=== PATIENT | male | born 1965 | race Caucasian/White ===

== ENCOUNTER → 2019-05-02 09:42 | Outpatient (CLI) | payer BC, SELFPAY ==
--- NOTE | 2019-05-02 09:47 | FL_ITS ---
Modified barium swallow Please refer to the speech and language evaluation. Patient experience premature loss of the thin liquids over the back of the tongue as well as with mixed consistencies and difficulty moving a large pill to the back of the tongue. Patient showed mild residual and was able to clear the residual phone the vallecula with a thin rinse. Impression: Neurogenic type of dysphasia as described above. This is detailed in the speech and language evaluation. Dictated by: Modesto Gonsalez 05/02/2019 15:48 Electronically signed by Modesto Gonsalez in [place] 05/02/2019 15:48
--- NOTE | 2019-05-02 13:26 | HMH.SLMBS2 ---
Speech & Language Evaluation Speech/Language Mod Barium Swallow Start: 05/02/19 13:12 Freq: once Status: Complete Protocol: Document 05/02/19 13:12 REUBENJAHAIRA (Rec: 05/02/19 13:25 REUBENJOSHYANIRA [id number]) [facility] [place] Recommendations Diet Dietary Recommendations Regular,Thin Liquids Treatment/Strategies Strategy/Precaution Recommend Sitting Upright (90 deg), Liquids from Cup Mod Barium Swallow Impressions Summary and Impressions Oral Phase Impression No Impairment (WFL) Oral Phase Summary Mr. Ludwig experienced premature loss of fluid over back of tongue with mixed consistencies and decreased abiltiy to move large pill to back of tongue; This could be due to swelling in neck and decreased sensation; Rec. follow up with physician and pharmacist to see if smaller pills or if liquid options are available; We also recommend avoiding mixed consistencies of foods (cereal with milk, fruit cocktail with juice etc) Pharyngeal Phase Impression Minimal Impairment Pharyngeal Phase Summary Mild residue with mechanical soft consistency. Easily cleared with thin rinse. Speech/Language MBS Assessment/Goals/Plan Assessment Date of Evaluation: 05/02/19 Evaluation Type Initial Certification Assessment/Problems Difficulty swallowing; Does Patient Qualify for Service No Qualify/Failure Comment Patient is currently not a candidate for speech therapy for dysphagia; Compensatory stragegies were reviewed and patient education provided; Recommendations PHYSICIAN CERTIFICATION: The specified therapy services are required, authorized, and reviewed every 30 days. Diet Recommendations Normal Liquid Type Recommendations Normal/Thin SL Swallow Guidelines Standard Aspiration Prec. Crush Meds Small pills w/applesauce,Small OK/Crush large pill,Crush lge pills w/applesa,Ok for small pills,Subs. delivery (liquid?) Dysphagia Swallow Precautions/Strategies Sitting Upright (90 deg), Mendelsonn Maneuver Plan Pt/Guardian verbally ack understanding Yes of dx/prognosis/goals Pt/Guardian verbally ack understanding Yes of/consent to tx prog G
== END ==
PROVIDERS: PCP Internal Medicine Adolescent Medicine; Visit Provider Internal Medicine Adolescent Medicine
DX: R13.10 Dysphagia, unspecified (principal)
CPT/HCPCS: 70371; 92611

== ENCOUNTER → 2020-02-22 08:34 | Outpatient (CLI) | payer BC, SELFPAY ==
--- NOTE | 2020-02-22 08:44 | CT_ITS ---
PROCEDURE: CT SOFT TISSUE NECK WO/W CON CLINICAL HISTORY: difficulty swallowing feels like something is stuck on left side of throat. left neck swelling at night; marked with bb 75ml optiray 350 no prior COMPARISON: No exams were available for comparison TECHNIQUE: Oral Contrast: None IV Contrast: 75 mL Optiray 350 Axial images obtained with sagittal and coronal reformats. All CT scans at the facility use one or more dose reduction, viz: automated exposure control, ma/kV adjustment per patient size (including targeted exams where dose is matched to indication, i.e. head), or iterative reconstruction technique. FINDINGS: The adenoids are prominent with obliteration of the fossa of Rosenmuller and torus tubarius on both sides.. There is mild prominence of the palatine tonsils having a somewhat lobulated appearance at their surface. There is also mild prominence of the lingual tonsils mildly nodular in configuration. The epiglottis and glottic region have an unremarkable appearance. Minimal prominence of the interstitium in the lung apices. Calcified granuloma is present in the left upper lobe. No dominant adenopathy is evident. The parotid and submandibular glands have an unremarkable appearance. Unremarkable appearing thyroid. There are mild degenerative changes in the cervical spine at the C5-C6 level. IMPRESSION: There is mild generalized prominence of the lymphoid tissue with prominent adenoids mildly prominent palatine and lingual tonsils. Please correlate with physical exam and direct visualization regarding the clinical significance of these findings. No abscess or dominant adenopathy. Dictated by: Reagan Wilder MD 02/23/2020 15:14 Reagan Wilder MD in [place] 02/23/2020 15:14
--- NOTE | 2020-02-22 08:44 | FL_ITS ---
PROCEDURE: FL BARIUM SWALLOW CLINICAL INDICATION: dysphagia COMPARISON: No exams were available for comparison TECHNIQUE: In the upright position the patient was observed to swallow barium in both the AP and lateral view. The cervical esophagus was examined under fluoroscopy with images obtained. The patient was then placed prone in the right anterior oblique position and was observed to swallow barium with Valsalva technique . FLUOROSCOPY TIME: 1 minutes and 13 seconds FINDINGS: There were some tertiary contractions of the distal esophagus. No annular constricting lesions, polypoid filling defects, or obstructing lesions evident. No hiatal hernia. No mucosal abnormalities. IMPRESSION: Mild esophageal dysmotility otherwise negative barium swallow Dictated by: Reagan Wilder MD 02/22/2020 17:22 Reagan Wilder MD in [facility] 02/22/2020 17:22
[2020-02-22 08:56] LABS: Blood Urea Nitrogen 12 mg/dl (9-20); Estimated Glomerular Filt Rate 101 ml/min (>60); GFR (African American) 122 ML/MIN (>60)
== END ==
PROVIDERS: PCP Internal Medicine Adolescent Medicine; Visit Provider Otolaryngology
DX: R13.10 Dysphagia, unspecified (principal)
CPT/HCPCS: 36415; 70492; 74220; 82565; 84520; Q9967

== ENCOUNTER 2020-04-12 12:59 | Observation (INO) | payer BC, SELFPAY ==
--- NOTE | 2020-04-12 13:09 | P.CONPHA_ITS ---
[facility] Pharmacy VTE Monitoring - Patient Demographics Admission date: 04/12/20 Report Date: 04/12/20 Time: 13:09 Allergies/Adverse Reactions: Patient Allergies penicillin G Allergy (Severe, Verified 02/27/20 14:41) Swelling of Lip/Tongue/Throat - Prophylaxis VTE Prophylaxis Ordered?: Yes Types of VTE Prophylaxis: TEDS Knee High Location of Applied Device: Bilateral Lower Extremeties
[2020-04-12 13:10] VITALS: BP 135/82; PULSE 119; RESP 19; TEMP 37; O2SAT 93; BMI 37.6
[2020-04-12 14:01] LABS: Alanine Aminotransferase 79 U/L (12-78); Albumin Level 4.1 g/dl (3.5-5.0); Albumin/Globulin Ratio 1.2 (1.1-1.8); Alkaline Phosphatase 144 U/L (38-126); Anion Gap 9.5 mEq/L (5-15); Aspartate Amino Transferase 53 U/L (17-59); Bilirubin,Total 0.5 mg/dl (0.2-1.3); Blood Urea Nitrogen 15 mg/dl (9-20); Calcium 9.9 mg/dl (8.4-10.2); Carbon Dioxide 31 mmol/L (22.0-30.0); Chloride 96 mmol/L (98-107); Estimated Glomerular Filt Rate 101 ml/min (>60); GFR (African American) 122 ML/MIN (>60); Globulin 3.5 g/dL (1.3-3.2); Magnesium 2.2 mg/dl (1.6-2.3); Potassium 4.5 mmoL/L (3.5-5.1); Sodium 132 mmol/L (136-145); Total Protein,Serum 7.6 g/dl (6.3-8.2)
[2020-04-12 14:02] LABS: Glucose 576 mg/dl (74-100)
[2020-04-12 14:14] LABS: Lactic Acid 1.7 mmol/L (0.7-2.1)
[2020-04-12 14:20] LABS: Basophils % 0.3 % (0.1-2.0); Eosinophils # 0.1 K/mm3 (0.0-0.4); Eosinophils % 0.9 % (0.1-12.0); Hematocrit 51.2 % (42.0-52.0); Hemoglobin 16.1 g/dL (14.1-18.0); Lymphocytes # 2.5 K/mm3 (0.7-4.5); Lymphocytes % 25.6 % (10-50); Mean Corpuscular HGB Conc 31.5 g/dL (31.8-35.4); Mean Corpuscular Hemoglobin 31.5 pg (27.0-31.2); Mean Corpuscular Volume 99.9 fl (80-94); Mean Platelet Volume 9.3 fl (7.4-10.4); Monocytes # 0.5 K/mm3 (0.1-1.0); Monocytes % 5.3 % (1.7-9.3); Neutrophils # 6.7 K/mm3 (1.8-7.8); Neutrophils % 67.8 % (37.0-80.0); Platelet Count 120 K/mm3 (142-424); Red Blood Count 5.12 M/mm3 (4.60-6.20); Red Cell Distribution Width 13.6 % (11.5-17.5); White Blood Count 9.9 K/mm3 (4.8-10.8)
[2020-04-12 14:21] LABS: Coronavirus 19 IgG Antibody Negative (Negative); Coronavirus 19 IgM Antibody Negative (Negative)
--- NOTE | 2020-04-12 14:40 | HMH.PHAINT ---
Medication reconciliation completed using pharmacy claims data and patient/spouse interview.
[2020-04-12 14:46] VITALS: BMI 37.9
[2020-04-12 14:51] LABS: Hemoglobin A1C 10.7 % (4.0-6.0)
--- NOTE | 2020-04-12 15:15 | ECG_ITS ---
APPROVED REPORT Exam: Resting ECG HR:104 bpm ECG Measurements Heart Rate 104 AXES OK 162 P 55 QRSd 86 QRS -37 QT 354 T 52 QTc 465 Conclusion Sinus tachycardia with occasional premature ventricular complexes Left axis deviation Isolated Q wave in lead III, unchanged from 2009 Abnormal ECG Electronically signed by : Arron Cueva, 04/13/2020 10:18:10
[2020-04-12 16:00] VITALS: BP 155/90; PULSE 104; PULSE 119; RESP 16; RESP 19; TEMP 36.8; O2SAT 92; O2SAT 93
[2020-04-12 17:14] LABS: POC Glucose,Bedside 367 (70-110)
--- NOTE | 2020-04-12 17:29 | HMH.HP ---
*Admission Date: 04/12/20 *Chief complaint: fatigue, increased urination, thirsty *History of present illness: 54-year-old gentleman with history of hypertension, diabetes on only Metformin once a day, elevated cholesterol, and obesity who presented to clinic today due to feeling unwell for several weeks. On arrival to clinic he states he has been urinating frequently and multiple times a night. Has felt significant fatigue, nausea, poor p.o. intake for approximately 3 weeks since having a procedure performed on his left knee. Of note he had arthroscopic partial meniscectomy performed by Dr. Alvarado in [place] 3 weeks ago. Procedure was uncomplicated but had subsequent swelling and pain of his knee. Was treated conservatively with anti-inflammatories and ice and rest. No antibiotics per patient's report. Has felt poorly since his procedure. In the office, fingerstick glucose obtained with greater than 550 noted. Decision made to directly admit. After arrival to the floor, patient received 1 L bolus of LR, 10 units of short acting insulin, and labs. Noted to have severe hyperglycemia and mildly elevated inflammatory markers. No anion gap, normal kidney function. Patient sleeping when I went to assess him in his room. at bedside, states he is noncompliant with his medications. [facility] History I have reviewed the patient's past medical history: Yes Medical History: Reports:: Diabetes Mellitus Type 2, Gastroesophageal Reflux Disease(GERD), Hyperlipidemia, Hypertension Denies:: Cancer, Diabetes Mellitus Type 1, MRSA *Have you ever received a pneumonia vaccine?: No *Have you received a flu vaccine this season?: Yes Laterality Cases: Left: Arthroscopy Knee Other Surgeries: Yes: Other Amputation: No - *Social History Smoking Status: Current every day smoker Tobacco Type: cigarettes # Packs/Day (cigarettes): 1 Alcohol Intake: never Substance Use Type: denies use *Occupational Status:: employed Housing: house Household Members: spouse *Travel in the last 8 weeks: Inside the [place] Family Hx:: Coronary Artery Disease, Diabetes, Kidney Disease Review of Systems - Review of Systems Review of systems:: pertinent systems reviewed and negative unless documented below (14 point review of systems performed, pertinent positives and negatives as per HPI) Meds Home Medications Medication Instructions Recorded Confirmed Type fenofibrate 160 mg tablet 160 mg PO DAILY tab 01/19/20 04/12/20 History metformin 500 mg tablet 500 mg PO DAILY tab 01/19/20 04/12/20 History metoprolol succinate 50 mg 50 mg PO DAILY 01/19/20 04/12/20 History tablet,extended release 24 hr omeprazole 20 mg capsule,delayed 20 mg PO DAILY cap 01/19/20 04/12/20 History release pravastatin 40 mg tablet 40 mg PO HS 01/19/20 04/12/20 History losartan 50 mg tablet 50 mg PO DAILY tab 02/27/20 04/12/20 History Allergies Allergy/AdvReac Type Severity Reaction Status Date / Time penicillin G Allergy Severe Swelling Verified 02/27/20 14:41 of Lip/Tongue/Throat Exam Vital signs and Labs for Last 24 Hours: Laboratory Results - last 24 hr 04/12/20 13:44: WBC 9.9, RBC 5.12, Hgb 16.1, Hct 51.2, MCV 99.9 H, MCH 31.5 H, MCHC 31.5 L, RDW 13.6, Plt Count 120 L, MPV 9.3, Neut % (Auto) 67.8, Lymph % (Auto) 25.6, [place] % (Auto) 5.3, Eos % (Auto) 0.9, Baso % (Auto) 0.3, Neut # (Auto) 6.7, Lymph # (Auto) 2.5, [place] # (Auto) 0.5, Eos # (Auto) 0.1, Baso # (Auto) 0.0 04/12/20 13:44: Sodium 132 L, Potassium 4.5, Chloride 96 L, Carbon Dioxide 31 H, Anion Gap 9.5, BUN 15, Creatinine 0.80, Estimated GFR 101, Est GFR ( Amer) 122, Glucose 576 H*, Calcium 9.9, Magnesium 2.2, Total Bilirubin 0.5, AST 53, ALT 79 H, Alkaline Phosphatase 144 H, Total Protein 7.6, Albumin 4.1, Globulin 3.5 H, Albumin/Globulin Ratio 1.2 04/12/20 13:44: Lactate 1.7 04/12/20 13:44: SARS-CoV-2 IgG Ab (Rapid) Negative, SARS-CoV-2 IgM Ab (Rapid) Negative 04/12/20 13:44: Hemoglobin A1c 10.7 H 1
--- NOTE | 2020-04-12 19:18 | XR_ITS ---
PROCEDURE: XR KNEE LT 2V CLINICAL INDICATION: Arthritis COMPARISON: No exams were available for comparison FINDINGS: No fracture or dislocation. No lytic or blastic change. There is normal mineralization. The joint spaces are well-preserved. No significant degenerative/arthritic changes. No erosive changes evident. Other findings:There is a small suprapatellar effusion. IMPRESSION: Knee joint effusion otherwise negative Dictated by: Reagan Wilder MD 04/13/2020 04:54 Reagan Wilder MD in [place] 04/13/2020 04:54
[2020-04-12 20:00] VITALS: BP 127/83; PULSE 101; RESP 18; TEMP 36.5; O2SAT 93
[2020-04-12 20:14] LABS: Chloride 101 mmol/L (98-107); Potassium 4.1 mmoL/L (3.5-5.1); Sodium 134 mmol/L (136-145)
[2020-04-12 20:17] LABS: Anion Gap 5.1 mEq/L (5-15); Blood Urea Nitrogen 15 mg/dl (9-20); Carbon Dioxide 32 mmol/L (22.0-30.0); Creatinine Clearance Estimated 139 mL/min (50-200); Estimated Glomerular Filt Rate 88 ml/min (>60); GFR (African American) 107 ML/MIN (>60); Glucose 337 mg/dl (74-100)
[2020-04-12 20:22] LABS: C-Reactive Protein 12.4 mg/L (0-4)
[2020-04-12 20:49] LABS: Erythrocyte Sedimentation Rate 22 mm/hr (0-20)
[2020-04-12 22:25] LABS: POC Glucose,Bedside 376 (70-110)
[2020-04-13 04:00] VITALS: BP 146/88; PULSE 83; RESP 18; TEMP 36.7; O2SAT 94
[2020-04-13 05:11] VITALS: BMI 38.3
[2020-04-13 06:10] LABS: POC Glucose,Bedside 218 (70-110)
--- NOTE | 2020-04-13 06:25 | PC.NURSE ---
Pt is A&Ox4 and has been independent and tolerated ambulation well. Pt c/o pain to Left knee, medicated with Ibuprofen 1x. FS more controlled this am and SSI has been administered each check. Pt denies any N/V/D, SOA, dizziness, or dyspnea. Pt does c/o increased thirst, but also reports I'm always thirsty . Lungs CTA. Skin C/D/I. LR insfusing at 125ml/hr. Pt anxious to go home today. VSS, call light within reach.
[2020-04-13 06:55] LABS: Basophils % 0.3 % (0.1-2.0); Eosinophils # 0.1 K/mm3 (0.0-0.4); Eosinophils % 1.1 % (0.1-12.0); Hematocrit 45.7 % (42.0-52.0); Lymphocytes # 2.8 K/mm3 (0.7-4.5); Lymphocytes % 34.2 % (10-50); Mean Corpuscular HGB Conc 31.6 g/dL (31.8-35.4); Mean Corpuscular Hemoglobin 30.8 pg (27.0-31.2); Mean Corpuscular Volume 97.4 fl (80-94); Mean Platelet Volume 8.8 fl (7.4-10.4); Monocytes # 0.5 K/mm3 (0.1-1.0); Monocytes % 5.8 % (1.7-9.3); Neutrophils # 4.7 K/mm3 (1.8-7.8); Neutrophils % 58.6 % (37.0-80.0); Platelet Count 111 K/mm3 (142-424); Red Blood Count 4.69 M/mm3 (4.60-6.20); Red Cell Distribution Width 13.7 % (11.5-17.5); White Blood Count 8.1 K/mm3 (4.8-10.8)
[2020-04-13 07:01] LABS: Chloride 101 mmol/L (98-107)
[2020-04-13 07:02] LABS: Sodium 136 mmol/L (136-145)
[2020-04-13 07:04] LABS: Alanine Aminotransferase 62 U/L (12-78); Alkaline Phosphatase 112 U/L (38-126); Aspartate Amino Transferase 52 U/L (17-59); Bilirubin,Total 0.4 mg/dl (0.2-1.3); Blood Urea Nitrogen 13 mg/dl (9-20); Carbon Dioxide 32 mmol/L (22.0-30.0); Creatinine Clearance Estimated 158 mL/min (50-200); Estimated Glomerular Filt Rate 101 ml/min (>60); GFR (African American) 122 ML/MIN (>60)
[2020-04-13 07:05] LABS: Albumin Level 3.4 g/dl (3.5-5.0); Albumin/Globulin Ratio 1.1 (1.1-1.8); Calcium 8.8 mg/dl (8.4-10.2); Globulin 3.1 g/dL (1.3-3.2); Glucose 232 mg/dl (74-100); Magnesium 1.8 mg/dl (1.6-2.3); Total Protein,Serum 6.5 g/dl (6.3-8.2)
[2020-04-13 07:14] LABS: Hemoglobin 14.4 g/dL (14.1-18.0)
[2020-04-13 08:00] VITALS: BP 163/109; PULSE 96; RESP 18; TEMP 36.8; O2SAT 95
--- NOTE | 2020-04-13 08:23 | HMH.DCSUM ---
General - General Admission date:: 04/12/20 Discharge date: 04/13/20 HPI HPI: 54-year-old gentleman with history of hypertension, diabetes on only Metformin once a day, elevated cholesterol, and obesity who presented to clinic today due to feeling unwell for several weeks. On arrival to clinic he states he has been urinating frequently and multiple times a night. Has felt significant fatigue, nausea, poor p.o. intake for approximately 3 weeks since having a procedure performed on his left knee. Of note he had arthroscopic partial meniscectomy performed by Dr. Alvarado in [place] 3 weeks ago. Procedure was uncomplicated but had subsequent swelling and pain of his knee. Was treated conservatively with anti-inflammatories and ice and rest. No antibiotics per patient's report. Has felt poorly since his procedure. In the office, fingerstick glucose obtained with greater than 550 noted. Decision made to directly admit. After arrival to the floor, patient received 1 L bolus of LR, 10 units of short acting insulin, and labs. Noted to have severe hyperglycemia and mildly elevated inflammatory markers. No anion gap, normal kidney function. Patient sleeping when I went to assess him in his room. at bedside, states he is noncompliant with his medications. Hospital Course Hospital Course: 54-year-old gentleman who presented to primary care office with hyperosmolar hyperglycemic state. Direct admitted for treatment of his dehydration and elevated glucose. Found to also have thrush. Responded well to subcu corrective insulin and initiation of long-acting basal insulin at night. Significant improvement in vitals with fluid resuscitation. Overall feeling better this morning with normal vitals, morning blood sugar in the low 200s, tolerating breakfast without nausea. Extensive discussion with patient and about treatment moving forward for his diabetes. We will plan to continue once a day basal insulin at 15 units nightly, if morning glucose remains above 200 in 3 days, increase to 20 units nightly. Plan for close follow-up next week in our [place] office. We will continue treatment with nystatin swish and swallow for thrush. Resume home medications for blood pressure, cholesterol, GERD. Patient had work-up of his abdominal distention prior to his knee procedure, is requesting records from [facility] so we may review these and address further issues in the outpatient setting. Denies nausea, chest pain, vomiting, palpitations, shortness of breath. Overall doing better. Medically stable for discharge home with continued treatment in the outpatient setting Textile Bag Sewer/dietitian consulted, met with patient on day of discharge for dietary counseling. Objective Vital signs: Temp Pulse Resp BP Pulse Ox 98.0 F 83 18 146/88 H 94 L 04/13/20 04:00 04/13/20 04:00 04/13/20 04:00 04/13/20 04:00 04/13/20 04:00 Narrative: - Constitutional No acute distress, obese - *Routine HEENT Exam Head: Present: normocephalic Eye: Present: EOMI, PERRL ENT: Present: mucous membranes moist - *Routine Neck Exam Present: supple. Absent: lymphadenopathy - *Routine Respiratory Exam Present: CTA bilaterally - *Routine Cardiovascular Exam Present: tachycardia. Absent: murmur - *Routine Abdominal Exam Present: soft, normoactive bowel sounds, distended. Absent: tenderness - *Routine Extremities Exam Absent: cyanosis, clubbing, edema - *Routine Skin Exam Present: warm. Absent: rash - *Routine Neurological Exam Present: alert, oriented X3 Results Labs on day of discharge: Labs from last 24 hours 04/13/20 04/13/20 04/13/20 06:00 06:00 05:59 WBC 8.1 RBC 4.69 Hgb 14.4 D Hct 45.7 MCV 97.4 H MCH 30.8 MCHC 31.6 L RDW 13.7 Plt Count 111 L MPV 8.8 Neut % (Auto) 58.6 Lymph % (Auto) 34.2 Lares % (Auto) 5.8 Eos % (Auto) 1.1 Baso % (Auto)
[2020-04-13 09:06] LABS: Uric Acid 4.8 mg/dl (3.5-8.5)
--- NOTE | 2020-04-13 09:44 | DIET.NUTRFU ---
Nutritional consult completed, pt educated on consistent carbohydrate diet and lifestyle changes for DM. Encouraged pt to follow up as outpatient and/or contact RD with any questions/concerns post dc.
[2020-04-13 10:03] VITALS: BMI 38.2
== END 2020-04-13 10:00 | disposition home or self-care (01) ==
PROVIDERS: Admitting Provider Internal Medicine Adolescent Medicine; PCP Internal Medicine Adolescent Medicine; Visit Provider Internal Medicine Adolescent Medicine
DX: E11.00 Type 2 diabetes mellitus with hyperosmolarity without nonketotic hyperglycemic-hyperosmolar coma (NKHHC) (principal); E11.65 Type 2 diabetes mellitus with hyperglycemia; Z72.0 Tobacco use; Z79.4 Long term (current) use of insulin; I10 Essential (primary) hypertension; Z88.0 Allergy status to penicillin; Z79.899 Other long term (current) drug therapy
CPT/HCPCS: 36415; 73560; 80048; 80053; 82962; 83036; 83605; 83735; 84550; 85025; 85651; 86140; 86328; 93005; G0378

== ENCOUNTER 2021-01-07 09:30 | Emergency (ER) | payer SELFPAY ==
[2021-01-07 10:40] VITALS: BP 160/91; PULSE 88; RESP 22; TEMP 36.9; O2SAT 96; BMI 33.3
--- NOTE | 2021-01-07 11:14 | HMH.EDUTC ---
[facility] [place] Clinical Impression: Sinusitis Qualifiers: Sinusitis location: unspecified location Chronicity: unspecified Qualified Code(s): J32.9 - Chronic sinusitis, unspecified Disposition: Home, Self-Care Condition on Discharge: Good Instructions: Sinusitis, DI for Sinusitis, DI for COVID-19 (Suspected or Confirmed ), Preventing the Spread of Coronavirus Discharge Instructions Additional Instructions: *Monitor Temp, Over the counter Motrin or Tylenol as directed/as needed Tylenol every 4 hours and Motrin every 6 hours (as long as your family doctor has told you that you can take it) for fever or pa-in. and straight to ER if unable to lower temp less than 101.0 after medication given *Warm salt water gargles may help to soothe the throat *Throat Lozenges *Warm fluids like tea with honey may help to soothe the throat *Sleep elevated *Humidifier/Vaporizer *Flonase 2 sprays in each nostril daily but be aware that it may take 2-3 days before you notice improvement *Bromfed may cause drowsiness. Know how it effects you (your child) before driving, caring for small child, or sending your child to school. Not other antihistamines/allergy medications while taking bromfed Your throat swab was sent for culture. Those results are typically sent to your primary care. Be sure to follow up in 2-3 days with your family doctor/primary care physician if no improvement so they can review those result and treat if necessary. If you don?t have a primary care doctor, I recommend you get one but in the mean time, you will have to return to a walk in clinic Follow up IMMEDIATELY for new or worsening symptoms or no Noticeable improvement over the next 48-72 hours. 911 for difficulty breathing or swallowing You were tested for today for COVID19 your test result should be back in the next 24-48 hours, Check the [email or web address] to see if your test results are back in the next 48 it may say detected that means your result is positive.You was given handout instructions on how log on and see your results. If you do not have internet access you may call the [facility] for your results [phone] You was given a handout with instructions for Self Quarantine and Self isolation for while you wait on test results and what to do if they are positive If you are positive the Health Dept will be contacting you also Make sure to take your Vitamins Vit. C Vit D and Zinc if you can take them Prescriptions: guaiFENesin [Mucinex 600mg tablet] 1 - 2 tab PO BID #20 tab Transmission Status: Pending to [facility] Azithromycin [Z-Miller 250mg Tab] 250 mg PO DIRECTED #6 tab Transmission Status: Pending to [facility] Referrals: Yaya Cuevas MD [Primary Care Provider] - As needed Forms: Work/School Release Time of Disposition: 11:31 Medical Decision Making - Herb Inquiry Pt receiving controlled substance: No Herb was queried for this patient: No Vital Signs: 01/07/21 10:40 Temperature 98.5 F Temperature Source Oral Pulse Rate [Right Brachial] 88 Respiratory Rate 22 Blood Pressure [Right Arm] 160/91 H Blood Pressure Mean [Right Arm] 114 Blood Pressure Source [Right Arm] Automatic Cuff Blood Pressure Position [Right Arm] Sitting 02 Sat by Pulse Oximetry 96 Oxygen Delivery Method Room Air - Lab Data Lab results reviewed: Yes: I reviewed the patient's lab results. Orders (Tests/Meds): ORDERS Category Date Time Status Covid-19 Nasal PCR ([facility]) Routine Lab 01/07/21 10:45 Received [facility] [place] HPI - General Stated complaint: covid test Time Seen by Provider: 01/07/21 11:14 Mode of Arrival: Ambulatory Source of Information: Patient Limitations: No Limitations Description of Symptoms (Recalled from Triage Doc. by RN): PATIENT C/O BODY ACHES, SINUS PRESSURE, CHILLS, AND CHEST CONGESTION SINCE THURSDAY MORNING HEENT Symptoms (Recalled from RN notes): Yes Resp Symptoms (Recalled from RN notes): No Skin Symptoms (Recalled from RN notes): No M
[2021-01-07 11:35] VITALS: BP 160/91; PULSE 88; RESP 22; TEMP 36.9; O2SAT 96
--- NOTE | 2021-01-07 15:42 | PC.NURSE ---
PT NOTIFIED OF POSITIVE COVID RESULT
[2021-01-07 21:20] LABS: UTC Strep Screen (Rapid) Negative (Negative)
--- NOTE | 2021-01-08 13:36 | PC.NURSE ---
Pt aware of positive results
== END 2021-01-07 11:40 | disposition home or self-care (01) ==
PROVIDERS: Emergency Provider Nurse Practitioner; PCP Internal Medicine Adolescent Medicine
DX: U07.1 COVID-19 (principal); J32.9 Chronic sinusitis, unspecified; E11.9 Type 2 diabetes mellitus without complications; K21.9 Gastro-esophageal reflux disease without esophagitis; E78.5 Hyperlipidemia, unspecified; I10 Essential (primary) hypertension; F17.210 Nicotine dependence, cigarettes, uncomplicated; Z88.0 Allergy status to penicillin; Z79.899 Other long term (current) drug therapy
CPT/HCPCS: 87880; 99203; G0463; U0003

== ENCOUNTER → 2021-01-10 12:18 | Outpatient (CLI) | payer SELFPAY ==
[2021-01-10] VITALS (7 sets, daily range): BP systolic 121–149; BP diastolic 53–94; PULSE 66–83; RESP 18–20; TEMP 36.4–36.5; O2SAT 93–98
== END ==
PROVIDERS: PCP Internal Medicine Adolescent Medicine; Visit Provider Internal Medicine Adolescent Medicine
DX: U07.1 COVID-19 (principal)
CPT/HCPCS: 96365

== ENCOUNTER → 2021-01-18 15:48 | Outpatient (CLI) | payer SELFPAY ==
[2021-01-18 16:11] LABS: Basophils % 0.4 % (0.1-2.0); Eosinophils # 0.1 K/mm3 (0.0-0.4); Eosinophils % 0.8 % (0.1-12.0); Hematocrit 45.5 % (42.0-52.0); Hemoglobin 14.8 g/dL (14.1-18.0); Lymphocytes # 3.1 K/mm3 (0.7-4.5); Lymphocytes % 29.4 % (10-50); Mean Corpuscular HGB Conc 32.5 g/dL (31.8-35.4); Mean Corpuscular Hemoglobin 32.3 pg (27.0-31.2); Mean Corpuscular Volume 99.6 fl (80-94); Mean Platelet Volume 8.5 fl (7.4-10.4); Monocytes # 0.6 K/mm3 (0.1-1.0); Monocytes % 5.9 % (1.7-9.3); Neutrophils # 6.7 K/mm3 (1.8-7.8); Neutrophils % 63.5 % (37.0-80.0); Platelet Count 150 K/mm3 (142-424); Red Blood Count 4.57 M/mm3 (4.60-6.20); Red Cell Distribution Width 13.8 % (11.5-17.5); White Blood Count 10.5 K/mm3 (4.8-10.8)
[2021-01-18 16:34] LABS: Hemoglobin A1C 7.2 % (4.0-6.0)
[2021-01-18 19:10] LABS: Alanine Aminotransferase 173 U/L (12-78); Albumin Level 3.5 g/dl (3.5-5.0); Albumin/Globulin Ratio 1.2 (1.1-1.8); Alkaline Phosphatase 82 U/L (38-126); Anion Gap 8.7 mEq/L (5-15); Aspartate Amino Transferase 112 U/L (17-59); Bilirubin,Total 0.6 mg/dl (0.2-1.3); Blood Urea Nitrogen 16 mg/dl (9-20); Calcium 9.7 mg/dl (8.4-10.2); Carbon Dioxide 32 mmol/L (22.0-30.0); Chloride 102 mmol/L (98-107); Estimated Glomerular Filt Rate 118 ml/min (>60); GFR (African American) 142 ML/MIN (>60); Globulin 2.9 g/dL (1.3-3.2); Glucose 120 mg/dl (74-100); Potassium 4.7 mmoL/L (3.5-5.1); Sodium 138 mmol/L (136-145); Total Protein,Serum 6.4 g/dl (6.3-8.2)
== END ==
PROVIDERS: Visit Provider Internal Medicine Adolescent Medicine
DX: E11.65 Type 2 diabetes mellitus with hyperglycemia (principal)
CPT/HCPCS: 36415; 80053; 83036; 85025

== ENCOUNTER 2021-07-10 11:08 | Emergency (ER) | payer BC, SELFPAY ==
[2021-07-10 11:21] VITALS: BMI 36.6
[2021-07-10 11:24] VITALS: BP 168/90; PULSE 94; RESP 18; TEMP 36.8; O2SAT 96; BMI 36.6
--- NOTE | 2021-07-10 11:24 | PC.NURSE ---
message left with dr garcia to call back
--- NOTE | 2021-07-10 11:57 | HMH.EDGENADL ---
ED Disposition Clinical Impression: Pain, eye, left Disposition: Xfer Other Condition on Discharge: Good Referrals: Yaya Cuevas MD [Primary Care Provider] - - Critical Care Critical Care Time: No Attestation: On 07/10/21, the high probability of a clinically significant, sudden or life threatening deterioration of the following system(s) required my full and direct attention, intervention and personal management. The time I documented below is in addition to time spent performing reported procedures but includes the following listed in this critical care notation. Medical Decision Making - Medical Records Medical records reviewed: Yes: I reviewed the patient's medical records. - Herb Inquiry Pt receiving controlled substance: No Vital Signs: 07/10/21 11:24 Temperature 98.2 F Temperature Source Oral Pulse Rate [Left Radial] 94 H Respiratory Rate 18 Blood Pressure [Right Arm] 168/90 H Blood Pressure Mean [Right Arm] 116 02 Sat by Pulse Oximetry 96 Oxygen Delivery Method Room Air Medical Decision Narrative: Patient is a 55-year-old male presenting with a chief complaint of left eye pain and redness and foreign body sensation. Differential diagnosis includes, but is not limited to, foreign body, corneal laceration, corneal ulcer, corneal abrasion, episcleritis, other. Initial exam, patient is hemodynamically stable nontoxic-appearing. Patient was evaluated with fluorescein stain under Cheng lamp and has fluorescein uptake at the 3 o'clock position bordering the iris. Additionally, there is vasodilation of the episcleral vessels and edema of the episclera. No foreign body appreciated. I spoke with Dr. Snow, resource room special education teacher on-call. He kindly accepted the patient for evaluation. Patient was discharged in a stable condition directly to his office for ophthalmologic evaluation. General Adult HPI - General Chief complaint: Eye Problems Stated complaint: f/o lt eye 07/05 Time Seen by Provider: 07/10/21 11:15 Mode of Arrival: Ambulatory Limitations: No Limitations Description of Symptoms (Recalled from ER Triage Doc. by RN): pt to ed c/o metal in his left eye. pt states he was grinding metal x6 days ago and has noticed some irritation and redness to his eye since. pt denies any visual changes. - History of Present Illness HPI narrative: Patient is a 55-year-old male without significant past medical history presenting for chief complaint of left eye pain. Patient reports he was sharpening his lawnmower blades last Thursday when he felt something in his eye. He has had pain and irritation since. Patient denies vision changes. He has been using [id number] eyedrops without relief. No fever, upper respiratory symptoms, other complaints. - Related Data Previous Rx's Medication Instructions Recorded Azithromycin [Z-Miller 250mg Tab] 250 mg PO DIRECTED #6 tab 01/07/21 guaiFENesin [Mucinex 600mg tablet] 1 - 2 tab PO BID #20 tab 01/07/21 Allergies Allergy/AdvReac Type Severity Reaction Status Date / Time penicillin G Allergy Severe Swelling Verified 01/10/21 13:20 of Lip/Tongue/Throat [facility] History - Hepatitis A Screen Drug use history?: No High risk sexual behaviors?: No History of sexually transmitted infection?: No Currently employed?: No Childcare worker?: No Do you have indoor plumbing?: Yes Do you have electricity?: Yes Attestation statement:: This patient has been screened for Hepatitis A risk factors. Medical History: Reports:: Diabetes Mellitus Type 2, Gastroesophageal Reflux Disease(GERD), Hyperlipidemia, Hypertension Denies:: Cancer, Diabetes Mellitus Type 1, MRSA Laterality Cases: Left: Arthroscopy Knee Other Surgeries: Yes: Other Amputation: No - Social History Smoking Status: Current every day smoker Tobacco Type: cigarettes # Packs/Day (cigarettes): 1 Alcohol Intake: never Substance Use Type: denies use Occupational Status: employed Housing:
[2021-07-10 12:09] VITALS: BP 159/87; PULSE 94; RESP 17; TEMP 36.9; O2SAT 96
== END 2021-07-10 12:10 | disposition other institution (70) ==
PROVIDERS: Emergency Provider Emergency Medicine; PCP Internal Medicine Adolescent Medicine
DX: T15.02XA Foreign body in cornea, left eye, initial encounter (principal); E11.9 Type 2 diabetes mellitus without complications; K21.9 Gastro-esophageal reflux disease without esophagitis; E78.5 Hyperlipidemia, unspecified; I10 Essential (primary) hypertension; F17.210 Nicotine dependence, cigarettes, uncomplicated
CPT/HCPCS: 99283

== ENCOUNTER → 2021-08-13 06:51 | Outpatient (CLI) | payer BC, SELFPAY ==
--- NOTE | 2021-08-13 06:55 | CT_ITS ---
FINAL REPORT TECHNIQUE: Axial images were obtained from the lung apex to the mid abdomen by computed tomography. Low-dose protocol was utilized. CLINICAL HISTORY: HISTORY OF NICOTINE DEPENDENCE 1PPD X40 YEARS FINDINGS: CHEST CT LOW DOSE CTDI vol (mGy): 2.90 DLP (mGy-cm): 91.16 There is no axillary adenopathy. There is no hilar or mediastinal adenopathy. The heart is normal in size. There is no pericardial or pleural effusion. There is mild scarring and mild emphysema. Several calcified granulomas are identified. There is a spiculated nodule in the posterior left upper lobe with eccentric calcification measuring 14 mm. Limited images of the upper abdomen are unremarkable. IMPRESSION: Spiculated nodule in the left upper lobe. Lung RADS category 4A. Recommend three-month chest CT and/or PET/CT. Consider CT guided biopsy as well. Reviewed, Interpreted and Dictated by Stanislaw Orellana III, MD Transcribed by Suad Rodriguez Authenticated by Stanislaw Orellana III, MD on 08/13/2021 09:45:16 AM [facility]
== END ==
PROVIDERS: PCP Internal Medicine Adolescent Medicine; Visit Provider Internal Medicine Adolescent Medicine
DX: Z87.891 Personal history of nicotine dependence (principal); Z12.2 Encounter for screening for malignant neoplasm of respiratory organs
CPT/HCPCS: 71271

== ENCOUNTER → 2021-10-04 09:30 | Outpatient (CLI) | payer BC, SELFPAY ==
[2021-10-04 10:15] VITALS: PULSE 81; PULSE 84
== END ==
PROVIDERS: PCP Internal Medicine Adolescent Medicine; Visit Provider Surgery
DX: R06.02 Shortness of breath (principal)
CPT/HCPCS: 94060; 94618; 94640; 94727; 94729

== ENCOUNTER → 2021-11-01 07:54 | Outpatient (CLI) | payer BC, SELFPAY | PROVIDERS: PCP Internal Medicine Adolescent Medicine; Visit Provider Surgery | DX: Z01.812 Encounter for preprocedural laboratory examination (principal); Z20.822 Contact with and (suspected) exposure to COVID-19; R91.1 Solitary pulmonary nodule | CPT/HCPCS: C9803; U0003; U0005 ==

== ENCOUNTER 2022-10-29 18:38 | Observation (INO) | payer OTHER, SELFPAY ==
[2022-10-29 18:52] VITALS: BP 110/82; PULSE 134; RESP 20; TEMP 36.7; O2SAT 94; BMI 33.3
[2022-10-29 19:18] LABS: Basophils % 0.2 % (0.1-2.0); Eosinophils # 0.1 K/mm3 (0.0-0.4); Eosinophils % 1.5 % (0.1-12.0); Hematocrit 30.5 % (42.0-52.0); Hemoglobin 10.5 g/dL (14.1-18.0); Lymphocytes # 1.5 K/mm3 (0.7-4.5); Lymphocytes % 19.4 % (10-50); Mean Corpuscular HGB Conc 34.5 g/dL (31.8-35.4); Mean Corpuscular Hemoglobin 29.1 pg (27.0-31.2); Mean Corpuscular Volume 84.4 fl (80-94); Mean Platelet Volume 8.6 fl (7.4-10.4); Monocytes # 0.1 K/mm3 (0.1-1.0); Monocytes % 1.8 % (1.7-9.3); Red Blood Count 3.62 M/mm3 (4.60-6.20); Red Cell Distribution Width 15.4 % (11.5-17.5); White Blood Count 7.7 K/mm3 (4.8-10.8)
[2022-10-29 19:21] LABS: Chloride 98 mmol/L (98-107)
[2022-10-29 19:22] LABS: Potassium 4.2 mmoL/L (3.5-5.1); Sodium 134 mmol/L (136-145)
[2022-10-29 19:24] LABS: Alanine Aminotransferase 65 U/L (12-78); Aspartate Amino Transferase 48 U/L (17-59); Blood Urea Nitrogen 16 mg/dl (9-20); Creatinine Clearance Estimated 106 mL/min (50-200); Estimated Glomerular Filt Rate 77 ml/min (>60); GFR (African American) 94 ML/MIN (>60)
[2022-10-29 19:25] LABS: Albumin Level 3.8 g/dl (3.5-5.0); Albumin/Globulin Ratio 1.2 (1.1-1.8); Alkaline Phosphatase 70 U/L (38-126); Anion Gap 14.2 mEq/L (5-15); Bilirubin,Total 0.8 mg/dl (0.2-1.3); Calcium 8.4 mg/dl (8.4-10.2); Carbon Dioxide 26 mmol/L (22.0-30.0); Globulin 3.1 g/dL (1.3-3.2); Glucose 122 mg/dl (74-100); Total Protein,Serum 6.9 g/dl (6.3-8.2)
[2022-10-29 19:35] LABS: Platelet Count 38 K/mm3 (142-424)
[2022-10-29 20:09] LABS: Coronavirus 19, PCR Not Detected (NotDetected); Influenza A, PCR Not Detected (NotDetected); Influenza B, PCR Not Detected (NotDetected)
[2022-10-29 20:19] LABS: Strep Scrn Group A (Rapid) Negative (Negative)
[2022-10-29 20:23] VITALS: BP 85/63; PULSE 124; O2SAT 95
[2022-10-29 20:24] VITALS: BP 95/65; PULSE 77; O2SAT 94
[2022-10-29 20:30] VITALS: BP 118/72; PULSE 125; O2SAT 96
--- NOTE | 2022-10-29 20:33 | CT_ITS ---
PROCEDURE INFORMATION: Exam: CT Abdomen And Pelvis With Contrast Exam date and time: 10/29/2022 8:58 PM Age: 57 years old Clinical indication: Abdominal pain; Additional info: Epigastric pain TECHNIQUE: Imaging protocol: Computed tomography of the abdomen and pelvis with contrast. Radiation optimization: All CT scans at this facility use at least one of these dose optimization techniques: automated exposure control; mA and/or kV adjustment per patient size (includes targeted exams where dose is matched to clinical indication); or iterative reconstruction. Contrast material: ISOVUE; Contrast volume: 75 ml; Contrast route: IV; REPORTING DATA: Count of CT and Cardiac NM exams in prior 12 months: This patient has received 0 known CTs and 0 known cardiac nuclear medicine studies in the 12 months prior to the current study. COMPARISON: CT LUNG SCREENING 08/13/2021 6:58 AM FINDINGS: Diaphragm: See same day CT chest for supradiaphragmatic findings. Liver: Liver is mildly enlarged with diffuse decreased attenuation consistent with steatosis. Multiple hepatic granulomas. Gallbladder and bile ducts: The gallbladder is contracted and not well evaluated. No intra or extrahepatic biliary ductal dilation. Pancreas: The pancreas is unremarkable. Spleen: Multiple splenic granulomas. Adrenal glands: Interval development of 2.2 x 4.9 x 4.6 cm (AP by transverse by cc) soft tissue density heterogeneous mass intimately associated with the left adrenal gland. There is mild periadrenal fat stranding. The right adrenal gland is unremarkable. Kidneys and ureters: The kidneys enhance symmetrically without hydronephrosis. The ureters have normal course and caliber without stone. Stomach and bowel: The stomach is normal. The small bowel has normal course and caliber. The large bowel has normal course and caliber with scattered colonic diverticula. No significant pericolonic inflammation. Appendix: No evidence of appendicitis. Intraperitoneal space: No significant peritoneal free fluid. No free peritoneal air. Vasculature: The vasculature demonstrates diffuse mild atherosclerotic calcification. No aortic aneurysm. Lymph nodes: There is a 14 mm pericaval lymph node (series 4 image 39). Urinary bladder: The bladder is normal without focal wall thickening. Reproductive: Unremarkable as visualized. Bones/joints: Multilevel degenerative type changes of the spine. No acute osseous abnormality. Soft tissues: Unremarkable. IMPRESSION: 1. Interval development of indeterminate left adrenal mass diagnostic considerations include neoplastic process versus evolving hematoma/hemorrhage as well as other etiologies. Recommend correlation with history/physical exam and consider further evaluation with multiphase MRI. 2. Hepatic steatosis. 3. Other findings as above.
--- NOTE | 2022-10-29 20:33 | CT_ITS ---
PROCEDURE INFORMATION: Exam: CTA Chest With Contrast Exam date and time: 10/29/2022 8:58 PM Age: 57 years old Clinical indication: Pain; Shortness of breath; Right-sided; Additional info: Right chest pain/sob TECHNIQUE: Imaging protocol: Computed tomographic angiography of the chest with contrast. Exam focused on the arteries. 3D rendering (Not supervised by radiologist): MIP and/or 3D reconstructed images were created by the technologist. Radiation optimization: All CT scans at this facility use at least one of these dose optimization techniques: automated exposure control; mA and/or kV adjustment per patient size (includes targeted exams where dose is matched to clinical indication); or iterative reconstruction. Contrast material: ISOVUE; Contrast volume: 75 ml; Contrast route: INTRAVENOUS (IV); REPORTING DATA: Count of CT and Cardiac NM exams in prior 12 months: This patient has received 0 known CTs and 0 known cardiac nuclear medicine studies in the 12 months prior to the current study. COMPARISON: CT LUNG SCREENING 08/13/2021 6:58 AM FINDINGS: Pulmonary arteries: No pulmonary embolism. Aorta: No aortic aneurysm. No aortic dissection. Thyroid: The thyroid gland is normal. Lungs: No focal consolidation. Interval development thickened appearance of the superior aspect of the left major fissure within the vicinity of previously visualized spiculated nodule, which is not definitively identified on this exam. Pleural spaces: No pleural effusion. No pneumothorax. Heart: No cardiomegaly. No pericardial effusion.Mild burden of coronary artery calcifications. Lymph nodes: Partially calcified mediastinal lymph nodes. Adrenal glands: Partially visualized left adrenal mass. Bones/joints: Multilevel degenerative type changes of the spine. No acute osseous abnormality. Soft tissues: Unremarkable. Other findings: See same day CT abdomen pelvis for subdiaphragmatice findings. IMPRESSION: 1. No pulmonary embolism. 2. Partially visualized left adrenal mass. See same day CT abdomen pelvis regarding this finding. 3. Other findings as above.
--- NOTE | 2022-10-29 20:34 | XR_ITS ---
PROCEDURE INFORMATION: Exam: XR Chest Exam date and time: 10/29/2022 8:45 PM Age: 57 years old Clinical indication: Sternal or substernal pain; Additional info: Cp TECHNIQUE: Imaging protocol: Radiologic exam of the chest. Views: 1 view. COMPARISON: CT LUNG SCREENING 08/13/2021 6:58 AM FINDINGS: Lungs: The lungs are adequately inflated. No focal consolidation. Scattered granulomas. Pleural spaces: No pneumothorax or pleural effusion. Heart/Mediastinum: The cardiomediastinal silhouette has normal size and contour. Bones/joints: No displaced fracture. Intraperitoneal space: The visualized abdomen is unremarkable. IMPRESSION: No acute cardiopulmonary disease.
[2022-10-29 20:50] LABS: Activated Partial Thrombo Time 27.1 seconds (22.8-30.6); INR 0.96 (0.9-1.1); Prothrombin Time 10.4 seconds (10.1-12.5)
[2022-10-29 21:04] LABS: Procalcitonin 0.432 ng/mL (0.0-2.0)
[2022-10-29 21:12] LABS: Troponin I 0.01 ng/ml (0.00-0.034)
--- NOTE | 2022-10-29 21:18 | ECG_ITS ---
APPROVED REPORT Exam: Resting ECG HR:110 bpm ECG Measurements Heart Rate 110 AXES AL 156 P 68 QRSd 102 QRS 69 QT 321 T 71 QTc 386 Conclusion SINUS TACHYCARDIA ABNORMAL RHYTHM ECG UNCONFIRMED REPORT Electronically signed by : Arron Cueva MD 10/29/2022 21:44:24
[2022-10-29 21:35] LABS: Lactic Acid 0.8 mmol/L (0.7-2.1)
--- NOTE | 2022-10-29 21:58 | PC.NURSE ---
Dr. Cristina s/w MIGUELINA
[2022-10-29 23:17] LABS: Troponin I 0.01 ng/ml (0.00-0.034)
[2022-10-29 23:45] LABS: Microscopic, Urine URINE MICROSCOPIC (MICROSCOPIC)
[2022-10-29 23:46] LABS: Appearance,Urine CLEAR (Clear); Bilirubin,Urine Negative (Negative); Blood, Urine 2+ (Negative); Color,Urine YELLOW (Yellow); Glucose,Urine (UA) 2+ (Negative); Ketones,Urine Negative (Negative); Leukocyte Esterase,Urine Negative (Negative); Nitrate,Urine Negative (Negative); Protein,Urine 2+ (Negative); Specific Gravity, Urine 1.015 (1.005-1.030)
--- NOTE | 2022-10-29 23:52 | PC.NURSE ---
Dr. Cristina at bedside for stool occult
--- NOTE | 2022-10-29 23:53 | PC.NURSE ---
Calling [facility] for a possible transfer with Hem/Onc versus GI. Transfer center state they will call back when their MD is available. [facility] has power-shared the images and preparing a disc.
[2022-10-29 23:55] LABS: Occult Blood,Stool Negative (Negative)
[2022-10-29 23:55] LABS: RBC,Urine Occasional #/hpf (0-3); Squamous Epithelial Cell,Urine Occasional #/hpf (0-5); WBC,Urine Occasional #/hpf (0-3)
[2022-10-30] VITALS (9 sets, daily range): BP systolic 104–146; BP diastolic 57–91; PULSE 86–113; RESP 18–20; TEMP 36.6–37.9; O2SAT 92–96; BMI 37.2; BMI 37.5
--- NOTE | 2022-10-30 00:09 | HMH.EDNVD ---
Discharge Plan Disposition Patient Disposition: Admitted Condition: Fair Prescriptions Prescriptions: No Action ascorbic acid (vitamin C) [Vitamin C] 1,000 mg Tablet 1,000 mg PO DAILY metoprolol succinate 50 mg tablet extended release 24 hr 50 mg PO DAILY prochlorperazine maleate 10 mg tablet 10 mg PO Q6 PRN (Reason: Nausea) dexamethasone 4 mg tablet 8 mg PO DIRECTED Rx Instructions: on day 2,3,4 of chemo cycle omeprazole 20 mg capsule,delayed release(DR/EC) 20 mg PO DAILY furosemide 20 mg tablet 20 mg PO DAILY albuterol 90 mcg/actuation Aerosol 90 mcg INHALATION Q6H PRN (Reason: Wheezing) losartan 100 mg tablet 100 mg PO DAILY loratadine 10 mg tablet 10 mg PO DAILY fenofibrate nanocrystallized 48 mg tablet 160 mg PO DAILY Janumet 50-1,000 mg Tablet 1 tab PO DAILY Referrals Follow up/Referrals: Arron Cueva MD [Primary Care Provider] - See instructions Clinical Impressions Clinical Impression: Fever, Diarrhea, Thrombocytopenia, History of esophageal stricture Instructions Patient Instructions: DI for Diarrhea and Traveler's Diarrhea -- Adult, DI for Diarrhea and Traveler's Diarrhea -- Child, DI for Nausea -- Adult, DI for Nausea -- Child Discharge ED Provider: Alejandra Cristina Nausea/Vomiting/Diarrhea HPI General Chief complaint: Nausea/Vomiting/Diarrhea Stated complaint: weak,tired, sore throat Time Seen by Provider: 10/29/22 20:42 Mode of Arrival: Ambulatory Source of Information: Patient and Spouse Limitations: No Limitations Description of Symptoms (Recalled from ER Triage Doc. by RN): pt c/o feeling like my throat is closing and N/v/D. all ongoing since yesterday evening. pt breathing regularly and unlabored. denies SOA. 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 History of Present Illness HPI Narrative: Patient is a 57-year-old male who is here secondary to multiple complaints. Patient is complaining of weakness fatigue, nausea vomiting diarrhea, abdominal pain shortness of breath. Patient has lung cancer had lobectomy and then recently was diagnosed with adrenal cancer October 09, 2022. Patient stated that he had chemotherapy 1 week ago. Patient stated he did well but now he is having the symptoms and was concerned so he brought himself to the ER. He has also been having difficulty eating and swallowing. He had history of esophageal stricture in the past and esophageal dilatation. He complains about he eats something and drink something he gets stuck right at the sternal notch area then he vomits it back up. His lung cancer is gone. The new cancer further adrenal gland is why he is getting chemotherapy. His stated that they believe that the adrenal gland cancer is metastasis from the lung. MD complaint: nausea, vomiting, diarrhea and abdominal pain Onset (ago): day(s) Description of Vomiting: food contents Associated Abdominal Pain: Yes Location of pain: diffuse Radiation: diffuse Severity: moderate Severity scale (1-10): 6 Quality: cramping and sharp Consistency: intermittent Relieving factors: none Exacerbating factors: none Associated symptoms: myalgias, fever/chills, malaise, nausea/vomiting, shortness of breath and weakness Related Data Home Medications Medication Instructions Recorded Confirmed albuterol 90 mcg/actuation aerosol 90 mcg inhalation Q6H PRN Wheezing 10/29/22 10/29/22 inhaler ascorbic acid (vitamin C) 1,000 mg 1,000 mg PO DAILY Supplement 10/29/22 10/29/22 tablet (Vitamin C) dexamethasone 4 mg tablet 8 mg PO DIRECTED chemo 10/29/22 10/29/22 fenofibrate nanocrystallized 48 mg 160 mg PO DAILY Cholesterol 10/29/22 10/29/22 tablet furosemide 20 mg tablet 20 mg PO DAILY Fluid 10/29/22 10/29/22 loratadine 10 mg tablet 10 mg PO DAILY Allergy symptoms 10/29/22 10/29/22 losartan 100 mg tablet 100 mg PO DAILY High blood pressure 10/29/22
--- NOTE | 2022-10-30 01:03 | PC.NURSE ---
Dr. Cristina s/w hospitalist
--- NOTE | 2022-10-30 01:17 | PC.NURSE ---
paged Dr Cueva at this time
--- NOTE | 2022-10-30 01:20 | PC.NURSE ---
Dr. Cristina speaking with Dr. Cueva at this time
--- NOTE | 2022-10-30 01:23 | PC.NURSE ---
Registration notified of admission. Pt assigned to room 200 d/t Thrombocytopenia. Hammad to Hammad for OBS.
[2022-10-30 01:28] LABS: Troponin I 0.01 ng/ml (0.00-0.034)
--- NOTE | 2022-10-30 01:38 | PC.NURSE ---
Report given to Codi CARY
--- NOTE | 2022-10-30 01:45 | PC.NURSE ---
AT 0130 RECEIVED PHONE REPORT FROM ED NURSE MATTHEW. 57 YO MALE ADMITTING DIAGNOSIS LUNG CANCER, S/P LEFT LUNG LOBECTOMY, LEFT ADRENAL GLAND ADENOCARCINOMA. N/V/D, ESOPHAGEAL STRICTURE. AWAITING TRANSFER TO [facility] WHEN BED AVAILABLE.
--- NOTE | 2022-10-30 01:49 | PC.NURSE ---
ARRIVED TO THE FLOOR AT 0145 VIA W/C.
--- NOTE | 2022-10-30 02:08 | PC.NURSE ---
pt arrived to the floor via wheelchair @[phone]
--- NOTE | 2022-10-30 06:49 | PC.NURSE ---
PATIENT HAS RESTED WELL SINCE ADMISSION. NO REPORTS OF N/V/D. PICC TO [facility] PATENT AND INTACT, NO S/S OF INFECTION OR INFILTRATION.
--- NOTE | 2022-10-30 07:32 | EXP.HP ---
History of Present Illness *Admission Date: 10/30/22 *Reason for visit:: Cough/fever/problems swallowing *History of present illness: 57-year-old male with lung cancer, has undergone treatments, and apparently is in remission stage but recently was found to have adrenal mass and oncology is of the opinion that the adrenal mass is a metastasis from the lung. He has started chemotherapy for the adrenal mass. Yesterday he began to be sick with some coughing and fevers. He describes that he starts to eat something and he coughs and feels like it is sticking and then vomits. became concerned about this and his fever and brought him to the ER. In the ER the doctor got the impression that he had complete dysphagia with food sticking and called for transfer for work-up of esophageal blockage issues. They do not have beds and who is he was admitted here for observation. However when I talked him this morning he is able to swallow water and pills but just states that when he coughs and coughs and coughs he has some dysphagia and then has retching and vomiting. He notes that he had fevers about 24 hours. Other than the cough he has no symptoms of infection disease except for diarrhea that began yesterday. No recent antibiotic exposure. No ill contacts. [facility] Disclaimer: The information contained in this section may have been updated after the patient was seen, as this information can be updated by other users. Social History Smoking Status: Current every day smoker tobacco type: cigarettes packs per day: 1 alcohol intake: never substance use type: denies use current occupational status: employed Travel in the last 8 weeks: Inside the [place] household members: spouse housing: house current occupation: [employer] caffeine: Yes Review of Systems Review of Systems Review of systems:: pertinent systems reviewed and negative unless documented below Meds Home Medications and Allergies Home Medications Medication Instructions Recorded Confirmed Type albuterol 90 mcg/actuation aerosol 90 mcg inhalation Q6H PRN Wheezing 10/29/22 10/29/22 History inhaler ascorbic acid (vitamin C) 1,000 mg 1,000 mg PO DAILY Supplement 10/29/22 10/29/22 History tablet (Vitamin C) dexamethasone 4 mg tablet 8 mg PO DIRECTED chemo 10/29/22 10/29/22 History fenofibrate nanocrystallized 48 mg 160 mg PO DAILY Cholesterol 10/29/22 10/29/22 History tablet furosemide 20 mg tablet 20 mg PO DAILY Fluid 10/29/22 10/29/22 History loratadine 10 mg tablet 10 mg PO DAILY Allergy symptoms 10/29/22 10/29/22 History losartan 100 mg tablet 100 mg PO DAILY High blood pressure 10/29/22 10/29/22 History metoprolol succinate 50 mg 50 mg PO DAILY heart rate 10/29/22 10/29/22 History tablet,extended release 24 hr omeprazole 20 mg capsule,delayed 20 mg PO DAILY Indigestion 10/29/22 10/29/22 History release prochlorperazine maleate 10 mg 10 mg PO Q6 PRN Nausea 10/29/22 10/29/22 History tablet sitagliptin phosphate 50 1 tab PO DAILY Diabetes 10/29/22 10/29/22 History mg-metformin 1,000 mg tablet (Nimco) New Prescriptions to Start Prescriptions: Allergies Allergy/AdvReac Type Severity Reaction Status Date / Time penicillin G Allergy Severe Swelling Verified 10/29/22 19:01 of Lip/Tongue/Throat nut - unspecified Allergy Verified 10/29/22 19:01 Exam Data for Last 24 hours Vital signs and Labs for Last 24 Hours: Temp Pulse Resp BP Pulse Ox 98.3 F 93 H 20 146/73 H 93 L 10/30/22 04:00 10/30/22 04:00 10/30/22 04:00 10/30/22 04:00 10/30/22 04:00 Laboratory Results - last 24 hr 10/29/22 19:00: Group A Strep Rapid Negative 10/29/22 19:00: SARS-CoV-2 (PCR) Not detected, Influenza A Untype (PCR) Not detected, Influenza Type B (PCR) Not detected 10/29/22 19:09: WBC 7.7, RBC 3.62 L, Hgb 10.5 L, Hct 30.5 L, MCV 84.4, MCH 2
--- NOTE | 2022-10-30 07:37 | HMH.PHAINT1 ---
Pharmacy Intervention Comments: PATIENT HOME MED LIST CONFIRMED WITH BOTH EXTERNAL PHARMACY AND PATIENT. -JUAREZ KRUGER, PHARM STUDENT
--- NOTE | 2022-10-30 07:48 | HMH.PHAINT1 ---
Pharmacy Intervention Comments: PATIENT'S HOME MEDICATION LIST VERIFIED WITH PATIENT AND EXTERNAL PHARMACY
[2022-10-30 08:23] LABS: Adenovirus,PCR Not Detected (NotDetected); Bordetella Pertussis Not Detected (NotDetected); Chlamydophila Pneumoniae, PCR Not Detected (NotDetected); Coronavirus 19, PCR Not Detected (NotDetected); Coronavirus 229E Not Detected (NotDetected); Coronavirus NL63 Not Detected (NotDetected); Coronavirus OC43 Not Detected (NotDetected); Coronovirus HKU1,PCR Not Detected (NotDetected); Human Metapneumovirus Not Detected (NotDetected); Influenza A, PCR Not Detected (NotDetected); Influenza AH1, 2009 Not Detected (NotDetected); Influenza AH1, PCR Not Detected (NotDetected); Influenza AH3,PCR Not Detected (NotDetected); Influenza B, PCR Not Detected (NotDetected); Mycoplasma Pneumoniae, PCR Not Detected (NotDetected); Parainfluenza 1, PCR Not Detected (NotDetected); Parainfluenza 2, PCR Not Detected (NotDetected); Parainfluenza 3, PCR Not Detected (NotDetected); Parainfluenza 4, PCR Not Detected (NotDetected); Respiratory Syncytial Virus Not Detected (NotDetected); Rhinovirus/Enterovirus Not Detected (NotDetected)
[2022-10-30 08:25] LABS: Basophils % 0.2 % (0.1-2.0); Eosinophils % 0.6 % (0.1-12.0); Hematocrit 27.6 % (42.0-52.0); Hemoglobin 9.5 g/dL (14.1-18.0); Lymphocytes # 1.4 K/mm3 (0.7-4.5); Lymphocytes % 30.9 % (10-50); Mean Corpuscular HGB Conc 34.5 g/dL (31.8-35.4); Mean Corpuscular Hemoglobin 29.4 pg (27.0-31.2); Mean Corpuscular Volume 85.1 fl (80-94); Mean Platelet Volume 8.3 fl (7.4-10.4); Monocytes # 0.2 K/mm3 (0.1-1.0); Monocytes % 3.6 % (1.7-9.3); Neutrophils # 2.9 K/mm3 (1.8-7.8); Neutrophils % 64.7 % (37.0-80.0); Red Blood Count 3.25 M/mm3 (4.60-6.20); Red Cell Distribution Width 15.5 % (11.5-17.5); White Blood Count 4.5 K/mm3 (4.8-10.8)
[2022-10-30 08:44] LABS: Platelet Count 24 K/mm3 (142-424)
--- NOTE | 2022-10-30 08:54 | PC.NURSE ---
Spoke with . No bed available at this time.
--- NOTE | 2022-10-30 11:23 | FL_ITS ---
FINAL REPORT CLINICAL HISTORY: . 2:22 fluoro time FINDINGS: MODIFIED BARIUM SWALLOW History: Dysphagia FINDINGS: Fluoroscopy was provided for the speech pathologist to evaluate the swallowing mechanism. The patient was given several different consistencies of barium while the swallow was visualized fluoroscopically. The report of the speech pathologist should be consulted prior to making dietary decisions. FLUOROSCOPY TIME: 2.22 minutes IMPRESSION: Modified barium swallow under fluoroscopic guidance. Please see the report of the speech pathologist for Dietary recommendations. Films reviewed , interpreted and dictated by Dr. Orellana Transcribed by Chago Moralez PA-C. Reviewed, Interpreted and Dictated by Stanislaw Orellana III, MD Transcribed by SHARON Schaefer Authenticated and [facility]
--- NOTE | 2022-10-30 11:50 | HMH.SLDYSPHA ---
Speech & Language Evaluation Speech/Language Dysphagia Evaluation Start: 10/30/22 11:28 Freq: ONCE Status: Active Protocol: Document 10/30/22 11:28 DAVIDE (Rec: 10/30/22 11:49 [facility] [place] [id number]) Dysphagia Assess/Goals/Plan Assessment Date of Evaluation: 10/30/22 Evaluation Type Initial Certification Assessment/Problems CSE completed per MD order following concerns of dysphagia Does Patient Qualify for Service Yes Qualify/Failure Comment Based on clinical bedside evaluation results, Mr. Ludwig would benefit from further evaluation of the swallow via MBSS. Recommendations PHYSICIAN CERTIFICATION: The specified therapy services are required, authorized, and reviewed every 30 days. Additional Consults Recommended Other Comment Further evaluation needed via MBSS ENT referral for lack of phonation Plan Pt/Guardian verbally ack understanding Yes of dx/prognosis/goals G -code Required No Education Instructions provided Discussed CSE results and need for further evaluation with pt, nursing, and care management all of which expressed understanding Pt/Caregiver able to recall information Able to recall/restate Reinforcement needed No Speech & Language HPI History Present Illness Description of Patient Problem Mr. Arron Ludwig is a 57 year- old-male who presents to [facility] indpendently secondary to multiple complaints including: weakness fatigue, nausea vomiting diarrhea, abdominal pain, and shortness of breath. Patient has lung cancer had lobectomy and then recently was diagnosed with adrenal cancer October 09, 2022. Patient stated that he had chemotherapy 1 week ago; has undergone treatments, and apparently is in remission stage but recently was found to have adrenal mass and [facility] is of the opinion that the adrenal mass is a metastasis from the lung. He hogan
--- NOTE | 2022-10-30 15:13 | HMH.SLMBS2 ---
Speech & Language Evaluation Speech/Language Mod Barium Swallow Start: 10/30/22 11:23 Freq: ONCE Status: Complete Protocol: Document 10/30/22 14:48 JAY JAY (Rec: 10/30/22 15:13 CWEIGLEIN [id number]) General Information General Current Food Consistency Clear Liquids Dentition Poor Dentition Oxygen Status Room Air Facial Symmetry Symmetrical Patient Orientation Person,Place,Time,Situation Ability to Follow Directions Excellent Communication Ability No Impairment MBS Recommendations Diet Dietary Recommendations Regular,Thin Liquids Treatment/Strategies Strategy/Precaution Recommend Sitting Upright (90 deg),Small Bites and Sips,Alternate Liquids/Solids Mod Barium Swallow Impressions Summary and Impressions Oral Phase Impression Minimal Impairment Oral Phase Summary Minimally impaired oral phase of swallowing. Pt demonstrated adequate mastication with both mechanical soft and regular solid trials. Pt is able to efficiently form bolus and AP transit of bolus is timely. Premature spillage was noted on thin liquid, mechanical soft, and regular solid trials 2' to reduced back of tongue strength. There is no significant oral residue noted on this study on any consistencies trialed. Pharyngeal Phase Impression Minimal Impairment Pharyngeal Phase Summary Minimally impaired pharyngeal phase of swallowing. No aspiration/penetration was noted on this study. Pt demonstrates moderately decreased hyolaryngeal excursion and elevation, resulting in minimal vallecular residue, which was cleared independently with subsequent swallows. Pharyngeal stripping was also noted to be minimally decreased, but functional. Decreased BOT strength noted, however, pt was able to adequately transit bolus into the pharynx. Epiglottic inversion
[2022-10-30 15:32] LABS: Adenovirus F 40/41, stool Not Detected (NotDetected); Astrovirus Not Detected (NotDetected); Campylobacter Not Detected (NotDetected); Cryptosporidium Not Detected (NotDetected); Cyclospora Cayetanesis Not Detected (NotDetected); Entamoeba histolytica Not Detected (NotDetected); Enteroaggregative E coli Not Detected (NotDetected); Enteropathogenic E coli Not Detected (NotDetected); Enterotoxigenic E coli Not Detected (NotDetected); Giardia lamblia Not Detected (NotDetected); Norovirus Not Detected (NotDetected); Plesimonas Shigalloides, PCR Not Detected (NotDetected); Rotavirus A Not Detected (NotDetected); Salmonella, PCR Not Detected (NotDetected); Sapovirus Not Detected (NotDetected); Shiga-like toxin E coli Not Detected (NotDetected); Shigella Enterovasive E coli Not Detected (NotDetected); Vibrio Cholerae Not Detected (NotDetected); Vibrio, PCR Not Detected (NotDetected); Yersinia Entercolitica, PCR Not Detected (NotDetected)
--- NOTE | 2022-10-30 16:52 | PC.NURSE ---
Spoke with [facility]. Pt has bed at [facility] [id number]. [facility] is accepting
--- NOTE | 2022-10-30 16:56 | EXP.DC.SUM ---
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 He has started chemotherapy for the adrenal mass. Yesterday he began to be sick with some coughing and fevers. He describes that he starts to eat something and he coughs and feels like it is sticking and then vomits. became concerned about this and his fever and brought him to the ER. In the ER the doctor got the impression that he had complete dysphagia with food sticking and called for transfer for work-up of esophageal blockage issues. They do not have beds and who is he was admitted here for observation. However when I talked him this morning he is able to swallow water and pills but just states that when he coughs and coughs and coughs he has some dysphagia and then has retching and vomiting. He notes that he had fevers about 24 hours. Other than the cough he has no symptoms of infection disease except for diarrhea that began yesterday. No recent antibiotic exposure. No ill contacts. Hospital Course Hospital Course Hospital Course: Despite his normal exam and ability to swallow water, patient was really unable to keep down clear liquids with continued coughing. Barium swallow with esophagram had been scheduled but not able to be done here because of the lack of a radiologist to observe the procedure. We held off on endoscopy because of his low platelet counts. No antibiotics were started because of lack of evidence of bacterial infection. Fever curve improved after admission. Upper respiratory panel and diarrhea panel pending at the time of discharge. Blood cultures and urine cultures also pending at the time of discharge. He also throughout his hospital stay had progressive lowering of his platelet counts down to the 20 range. ER had already arranged for evaluation at given his metastatic cancer and thrombocytopenia, bed became available this afternoon and will be transferred to for further evaluation. Discharge disposition, outcome and prognosis will be per the stay at that institution. Exam Data for Last 24 hours Vital signs and Labs for Last 24 Hours: Temp Pulse Resp BP Pulse Ox 97.8 F 86 20 143/91 H 94 L 10/30/22 16:00 10/30/22 16:00 10/30/22 16:00 10/30/22 16:00 10/30/22 16:00 Laboratory Results - last 24 hr 10/29/22 19:00: Group A Strep Rapid Negative 10/29/22 19:00: SARS-CoV-2 (PCR) Not detected, Influenza A Untype (PCR) Not detected, Influenza Type B (PCR) Not detected 10/29/22 19:09: WBC 7.7, RBC 3.62 L, Hgb 10.5 L, Hct 30.5 L, MCV 84.4, MCH 29.1, MCHC 34.5, RDW 15.4, Plt Count 38 L*, MPV 8.6, Neut % (Auto) 77.0, Lymph % (Auto) 19.4, Holt % (Auto) 1.8, Eos % (Auto) 1.5, Baso % (Auto) 0.2, Neut # (Auto) 6.0, Lymph # (Auto) 1.5, Holt # (Auto) 0.1, Eos # (Auto) 0.1, Baso # (Auto) 0.0 10/29/22 19:09: Sodium 134 L, Potassium 4.2, Chloride 98, Carbon Dioxide 26, Anion Gap 14.2, BUN 16, Creatinine 1.00, Estimated Creat Clear 106, Estimated GFR 77, Est GFR ( Amer) 94, Glucose 122 H, Calcium 8.4, Total Bilirubin 0.8, AST 48, ALT 65, Alkaline Phosphatase 70, Total Protein 6.9, Albumin 3.8, Globulin 3.1, Albumin/Globulin Ratio 1.2 10/29/22 19:09: PT 10.4, INR 0.96, APTT 27.1 10/29/22 19:09: Procalcitonin 0.432 10/29/22 19:09: Troponin I 0.01 10/29/22 21:09: Lactate 0.8 10/29/22 22:25: Troponin I 0.01 10/29/22 22:42: Urine Color Yellow, Urine Appearance Clear, Urine pH 6.0, Ur Specific Moseley 1.015, Urine Protein 2+, Urine Glucose (UA) 2+, Urine Ketones Negative, Urine Blood 2+, Urine Nitrate Negative, Urine Bilirubin Negative, Urine Urobilinogen 2.0, Ur Leukocyte Esterase Negative, Urine RBC Occasional, Urine WBC Occasional, Ur Squamous Epith Cells Occasional, Urine Bacteria None 10/29/22 23:52: S
[2022-10-30 17:24] LABS: Clostridium Difficile A/B, PCR Detected (NotDetected)
--- NOTE | 2022-10-30 17:36 | PC.NURSE ---
Called [facility] and told Nurse that pt tested positive for CDiff.
--- NOTE | 2022-10-30 19:01 | PC.NURSE ---
Late Entry: 1738 Spoke with EMS to let them know patient was ready for transport. They stated they would send a truck up as soon as the other truck got back to the station. 1831 EMS called to let us know they would be a few hours, they had another transfer.
--- NOTE | 2022-10-30 21:03 | PC.NURSE ---
2051: [facility] called for transfer, stated they would be here in 30-40 minutes to transfer patient to [facility]. updated.
--- NOTE | 2022-10-30 21:45 | PC.NURSE ---
[facility] transporting patient to [facility] 0768
== END 2022-10-30 21:48 | disposition short-term general hospital (02) ==
LOC: ER 10-30 01:26 → 2ND 10-30 02:10
PROVIDERS: Emergency Medicine; Admitting Provider Internal Medicine Adolescent Medicine; Emergency Provider Emergency Medicine; PCP Internal Medicine Adolescent Medicine; Visit Provider Internal Medicine Adolescent Medicine
DX: D69.6 Thrombocytopenia, unspecified (principal); F17.210 Nicotine dependence, cigarettes, uncomplicated; E11.9 Type 2 diabetes mellitus without complications; I10 Essential (primary) hypertension; C34.90 Malignant neoplasm of unspecified part of unspecified bronchus or lung; C79.72 Secondary malignant neoplasm of left adrenal gland; K22.2 Esophageal obstruction; Z79.84 Long term (current) use of oral hypoglycemic drugs; Z79.899 Other long term (current) drug therapy
CPT/HCPCS: 36415; 70371; 71045; 71275; 74177; 80053; 81001; 82272; 83605; 84145; 84484; 85025; 85610; 85730; 87040; 87086; 87430; 87507; 87581; 87632; 87636; 87798; 92610; 92611; 93005; 93041; 99285; C9803; G0328; G0378; J0131; J2405; Q9967; U0003; U0005

== ENCOUNTER 2023-08-06 15:21 | Outpatient (CLI) | payer OTHER, SELFPAY ==
[2023-08-06 15:25] LABS: Adenovirus F 40/41, stool Not Detected (NotDetected); Astrovirus Not Detected (NotDetected); Campylobacter Not Detected (NotDetected); Clostridium Difficile A/B, PCR Not Detected (NotDetected); Cryptosporidium Not Detected (NotDetected); Cyclospora Cayetanesis Not Detected (NotDetected); Entamoeba histolytica Not Detected (NotDetected); Enteroaggregative E coli Not Detected (NotDetected); Enteropathogenic E coli Not Detected (NotDetected); Enterotoxigenic E coli Not Detected (NotDetected); Giardia lamblia Not Detected (NotDetected); Norovirus Not Detected (NotDetected); Plesimonas Shigalloides, PCR Not Detected (NotDetected); Rotavirus A Not Detected (NotDetected); Salmonella, PCR Not Detected (NotDetected); Shigella Enterovasive E coli Not Detected (NotDetected); Vibrio Cholerae Not Detected (NotDetected); Vibrio, PCR Not Detected (NotDetected); Yersinia Entercolitica, PCR Not Detected (NotDetected)
[2023-08-10 12:37] LABS: Sapovirus Not Detected (NotDetected)
[2023-08-10 12:43] LABS: Shiga-like toxin E coli Detected (NotDetected)
== END 2023-08-06 23:59 ==
LOC: LAB.DROPOF 15:22
PROVIDERS: PCP Nurse Practitioner Family; Visit Provider Nurse Practitioner Family
DX: R19.7 Diarrhea, unspecified (principal); B96.21 Shiga toxin-producing Escherichia coli [E. coli] [STEC] O157 as the cause of diseases classified elsewhere
CPT/HCPCS: 87507

== ENCOUNTER 2023-08-25 15:05 | Outpatient (CLI) | payer OTHER, SELFPAY ==
--- OUTSIDE RECORDS SUMMARY | 2023-08-25 15:08 | XMS_ITS | Continuity of Care Document ---
Author Name Unknown Address [address] [place] [phone] Organization [facility] Phone Care Team Providers Care Oil Well Driller Name Role Phone YANE CHU Primary Attending [phone] YANE CHU Unavailable BLANCA SILVESTRE Primary Care YANE CHU Admitting ALLERGIES AND ADVERSE REACTIONS ALLERGIES AND ADVERSE REACTIONS Code System Allergy Substance Adverse Reaction Date Reaction (Severity) Comment Status Reported By [place] By [id number] RXNorm Penicillin Rash active [id number] on April 14, 2023 5:13:35 PM [facility] [address] RXNorm LISINOPRIL Adverse reaction to substance cough active [id number] on April 14, 2023 5:13:35 PM [facility] FAMILY HISTORY RELATION: Father Status: Cause of : Acute renal failure syndrome Age at : Unknown SNOMED-CT Diagnosis Age At Onset Information not available RELATION: Mother Status: LIVING SNOMED-CT Diagnosis Age At Onset [id number] Diabetes mellitus RELATION: Brother Status: LIVING SNOMED-CT Diagnosis Age At Onset [id number] Diabetes mellitus RELATION: Sister Status: LIVING SNOMED-CT Diagnosis Age At Onset [id number] Diabetes mellitus RELATION: Son Status: LIVING SNOMED-CT Diagnosis Age At Onset Information not available RELATION: Son Status: LIVING SNOMED-CT Diagnosis Age At Onset Information not available RELATION: Son Status: LIVING SNOMED-CT Diagnosis Age At Onset Information not available RELATION: Daughter Status: LIVING SNOMED-CT Diagnosis Age At Onset Information not available TREATMENT PLAN DISCHARGE MEDICATIONS Status RXNORM Medication Dose Route Frequency Dates Comments U pdated By Patient discharge medication information is not available. PATIENT OPEN ORDERS Code System Description Frequency Occurrences Priority [place] [address] [facility] Head and neck soft tissue ONE TIME 0 Routine May 19, 2023 2:07:00 PM [facility] KIMBERLEY YANE Scales FITTER TYPE BAR AND SEGMENT [id number] on May 19, 2023 2:34:00 PM [facility] SCHEDULED PROCEDURES Code System Description Status Scheduled Date Upd ated By Patient scheduled procedure information is not available. MEDICATIONS HOME MEDICATIONS Status RXNORM Medication Dose Route Frequency Dates Comments R eported By Updated By Drug Treatment Unknown DISCHARGE MEDICATIONS Status RXNORM Medication Dose Route Frequency Dates Comments Physic emely Updated By No Discharge Medication Info rmation Available INPATIENT MEDICATIONS Status RXNORM Medication Dose Route Frequency Rate Quantity Dates Comments Physician Updated By No Inpatient Medication Info rmation Available SOCIAL HISTORY SOCIAL HISTORY SNOMED-CT Social History Element Description Effective Dates Offered Cessation Comment UpdatedBy [id number] Historical Tobacco smoking status Current Every Day Smoker Yes [id number] on March 07, 2020 7:21:10 PM [facility] [id number] Historical Tobacco smoking status Unknown If Ever Smoked [id number] on May 17, 2012 1:32:53 PM [facility] SOCIAL HISTORY - Gender Sex: Male SOCIAL HISTORY - Sexual Behavior Sexual Orientation Gender Identity SNOMED-CT Description SNO MED -CT Description Activity Level No of Partners Partner Type UpdatedBy Information is not available HEALTH CONCERNS Problems Concern Status Health Concern problem infor mation not available. Smoking Status Status Years Used Consumed packs p er day Health Concern smoking histo ry information not available. Family History Concern Status Health Concern family histor y information not available. ENCOUNTERS ENCOUNTER INFORMATION Reason for Visit M79.9 Admission May 19, 2023 1:57:00 PM [facility] B [address] [address] Discharge May 19, 2023 1:57:00 PM [facility] D ISCHARGED TO HOME OR SELF CARE ENCOUNTER DIAGNOSES Notes information is not natacha ilable. Code System Diagnosis Onset Date Diagnosis information is not available. ABSTRACT DIAGNOSES Code System Diagnosis Updated By M79.9 ICD10 SOFT TISSUE DISORDER, UNSPEC IFIED [id number] on May 15, 2023 5:31:11 PM [facility] CARE TEAM Care Oil Well Driller Role YANE CHU Primary Attending YANE CHU Referring BLANCA SILVESTRE Primary Care YANE CHU Admitting CARE TEAM CARE polygraph examiner Role on Team Status Start Date End Date Update d By NIRMALA RIOS MD PCP normal May 15, 2023 5:31:11 PM [facility] May 19, 2023 1:57:00 PM [facility] [id number] on May 15, 2023 5:31:11 PM [facility] KIMBERLEY Scales APRN Referring normal May 15, 2023 5:31:11 PM [place] May 19, 2023 1:57:00 PM [facility] [id number] on May 15, 2023 5:31:11 PM [facility] KIMBERLEY Scales APRN Attending normal May 15, 2023 5:31:11 PM [place] May 19, 2023 1:57:00 PM [facility] [id number] on May 15, 2023 5:31:11 PM [facility] KIMBERLEY Scales APRN Admitting normal May 15, 2023 5:31:11 PM [place] May 19, 2023 1:57:00 PM [facility] [id number] on May 15, 2023 5:31:11 PM [facility]
--- OUTSIDE RECORDS SUMMARY | 2023-08-25 15:08 | XMS_ITS | Continuity of Care Document ---
Author Name Unknown Address [address] [place], [place] [id number] Organization [facility] Phone Care Team Providers Care Pool Cleaner Name Role Phone YANE CHU Primary Attending YANE CHU Unavailable BLANCA SILVESTRE Primary Care YANE CHU Admitting ALLERGIES AND ADVERSE REACTIONS ALLERGIES AND ADVERSE REACTIONS Code System Allergy Substance Adverse Reaction Date Reaction (Severity) Comment Status Reported By [place] By [id number] RXNorm Penicillin Rash active [id number] on April 14, 2023 5:13:35 PM [facility] [address] RXNorm LISINOPRIL Adverse reaction to substance cough active [id number] on April 14, 2023 5:13:35 PM [facility] FAMILY HISTORY RELATION: Father Status: Cause of : Acute renal failure syndrome Age at : Unknown SNOMED-CT Diagnosis Age At Onset Information not available RELATION: Mother Status: LIVING SNOMED-CT Diagnosis Age At Onset [id number] Diabetes mellitus RELATION: Brother Status: LIVING SNOMED-CT Diagnosis Age At Onset [id number] Diabetes mellitus RELATION: Sister Status: LIVING SNOMED-CT Diagnosis Age At Onset [id number] Diabetes mellitus RELATION: Son Status: LIVING SNOMED-CT Diagnosis Age At Onset Information not available RELATION: Son Status: LIVING SNOMED-CT Diagnosis Age At Onset Information not available RELATION: Son Status: LIVING SNOMED-CT Diagnosis Age At Onset Information not available RELATION: Daughter Status: LIVING SNOMED-CT Diagnosis Age At Onset Information not available RESULTS Patient: CARLINE DURAND Date of : September 06 LABORATORY RESULTS Information is not available LABORATORY NARRATIVE RESULTS Information is not available RADIOLOGY RESULTS ORDER 100: US SOFT TISSUE LI BJORN (LOINC: [id number]) ORDER DATE: May 19, 2023 2:08:00 PM [facility] PERFORMING LAB: [facility] [address] [facility] [place] [id number] Final Result Date: May 2:33:[address] [place] [address] Name: KIZZY CROWLEY Exam Date: 05/19/2023 : 1965 Age 57 years Gender: M Physician: YANE CHU Facility: [facility] Facility HSV: Outpatient Exam: US SOFT TISSUE LIMIT ULTRASOUND SOFT TISSUE OF THE LEFT CHEST HISTORY: Palpable abnormality FINDINGS: The parenchyma shows normal echogenicity. No distinct mass is seen. IMPRESSION: No distinct soft tissue mass. Dictated By: PATTI MCQUEEN Transcribed By: PATTI MCQUEEN Transcribed On: 05/19/2023 9:33 AM Electronically signed by: PATTI MCQUEEN 05/19/2023 Thank you for referring KIZZY CROWLEY to [facility]. Legally authenticated by POPE PATTI Abraham DO 2023-05-19 09:33:52 PATHOLOGY NARRATIVE RESULTS Information is not available MICROBIOLOGY RESULTS No Micro Labs/Results Exist for Patient BLOOD ADMIN RESULTS Information is not available MEDICATIONS HOME MEDICATIONS Status RXNORM Medication Dose [...] Description Effective Dates Offered Cessation Comment UpdatedBy [id number] Historical Tobacco smoking status Current Every Day Smoker Yes [id number] on March 07, 2020 7:21:10 PM [facility] [id number] Historical Tobacco smoking status Unknown If Ever Smoked [id number] on May 17, 2012 1:32:53 PM [facility] SOCIAL HISTORY - Gender Sex: Male SOCIAL [...] M79.9 Admission May 19, 2023 1:57:00 PM [facility] [address] [address] Discharge May 19, 2023 1:57:00 PM [facility] D ISCHARGED TO HOME OR SELF CARE ENCOUNTER DIAGNOSES Notes information is not natacha ilable. Code System Diagnosis Onset Date Diagnosis information is not available. ABSTRACT DIAGNOSES Code System Diagnosis Updated By M79.9 ICD10 SOFT TISSUE DISORDER, UNSPEC IFIED [id number] on May 20, 2023 2:53:29 PM [place] M79.9 ICD10 SOFT TISSUE DISORDER, UNSPEC IFIED [id number] on May 20, 2023 2:53:29 PM [facility] CARE TEAM Care Pool Cleaner Role YANE CHU Primary Attending YANE CHU Referring BLANCA SILVESTRE Primary Care YANE CHU Admitting CARE TEAM CARE electrical manager Role on Team Status Start Date End Date Update d By NIRMALA RIOS MD PCP normal May 15, 2023 5:31:11 PM [facility] May 19, 2023 5:00:00 AM [facility] [id number] on May 15, 2023 5:31:11 PM [facility] KIMBERLEY Scales APRN Referring normal May 15, 2023 5:31:11 PM [facility] May 19, 2023 5:00:00 AM [facility] [id number] on May 15, 2023 5:31:11 PM [facility] KIMBERLEY Scales APRN Attending normal May 15, 2023 5:31:11 PM [facility] May 19, 2023 5:00:00 AM [facility] [id number] on May 15, 2023 5:31:11 PM [facility] KIMBERLEY Scales APRN Admitting normal May 15, 2023 5:31:11 PM [facility] May 19, 2023 5:00:00 AM [facility] [id number] on May 15, 2023 5:31:11 PM [facility]
[2023-08-25 15:13] LABS: Adenovirus F 40/41, stool Not Detected (NotDetected); Astrovirus Not Detected (NotDetected); Campylobacter Not Detected (NotDetected); Clostridium Difficile A/B, PCR Not Detected (NotDetected); Cryptosporidium Not Detected (NotDetected); Cyclospora Cayetanesis Not Detected (NotDetected); Entamoeba histolytica Not Detected (NotDetected); Enteroaggregative E coli Not Detected (NotDetected); Enteropathogenic E coli Not Detected (NotDetected); Enterotoxigenic E coli Not Detected (NotDetected); Giardia lamblia Not Detected (NotDetected); Norovirus Not Detected (NotDetected); Plesimonas Shigalloides, PCR Not Detected (NotDetected); Rotavirus A Not Detected (NotDetected); Salmonella, PCR Not Detected (NotDetected); Sapovirus Not Detected (NotDetected); Shiga-like toxin E coli Not Detected (NotDetected); Shigella Enterovasive E coli Not Detected (NotDetected); Vibrio Cholerae Not Detected (NotDetected); Vibrio, PCR Not Detected (NotDetected); Yersinia Entercolitica, PCR Not Detected (NotDetected)
== END 2023-08-25 23:59 | disposition home or self-care (01) ==
LOC: LAB 15:06
PROVIDERS: PCP Nurse Practitioner Family; Visit Provider Nurse Practitioner Family
DX: R19.7 Diarrhea, unspecified (principal)
CPT/HCPCS: 87507

== ENCOUNTER 2024-02-19 10:42 | Outpatient (CLI) | payer OTHER, SELFPAY ==
[2024-02-19 11:02] LABS: Basophils # 0.1 K/mm3 (0-0.2); Basophils % 0.8 % (0.1-2.0); Eosinophils # 0.1 K/mm3 (0.0-0.4); Eosinophils % 1.8 % (0.1-12.0); Hematocrit 43.3 % (42.0-52.0); Hemoglobin 14.3 g/dL (14.1-18.0); Lymphocytes # 2.2 K/mm3 (0.7-4.5); Lymphocytes % 32.4 % (10-50); Mean Corpuscular HGB Conc 32.9 g/dL (31.8-35.4); Mean Corpuscular Hemoglobin 30.7 pg (27.0-31.2); Mean Corpuscular Volume 93.1 fl (80-94); Mean Platelet Volume 8.3 fl (7.4-10.4); Monocytes # 0.4 K/mm3 (0.1-1.0); Monocytes % 6.1 % (1.7-9.3); Platelet Count 138 K/mm3 (142-424); Red Blood Count 4.65 M/mm3 (4.60-6.20); Red Cell Distribution Width 13.8 % (11.5-17.5); White Blood Count 6.8 K/mm3 (4.8-10.8)
[2024-02-19 12:01] LABS: Albumin Level 4.1 g/dl (3.5-5.0); Chloride 109 mmol/L (98-107); Sodium 141 mmol/L (136-145)
[2024-02-19 12:02] LABS: Potassium 4.3 mmoL/L (3.5-5.1)
[2024-02-19 12:04] LABS: Alanine Aminotransferase 25 U/L (12-78); Albumin/Globulin Ratio 1.4 (1.1-1.8); Alkaline Phosphatase 92 U/L (38-126); Anion Gap 11.3 mEq/L (5-15); Aspartate Amino Transferase 39 U/L (17-59); Bilirubin,Total 0.7 mg/dl (0.2-1.3); Blood Urea Nitrogen 17 mg/dl (9-20); Carbon Dioxide 25 mmol/L (22.0-30.0); Estimated Glomerular Filt Rate 100 ml/min (>60); GFR (African American) 121 ML/MIN (>60); Globulin 2.9 g/dL (1.3-3.2)
[2024-02-19 12:05] LABS: Calcium 9.7 mg/dl (8.4-10.2); Glucose 158 mg/dl (74-100)
[2024-02-19 12:36] LABS: Thyroid Stimulating Hormone 3.66 uIU/mL (0.465-4.68)
== END 2024-02-19 23:59 | disposition home or self-care (01) ==
LOC: LAB 10:43
PROVIDERS: PCP Nurse Practitioner Family; Visit Provider Internal Medicine Medical Oncology
DX: C34.92 Malignant neoplasm of unspecified part of left bronchus or lung (principal); Z72.0 Tobacco use
CPT/HCPCS: 36415; 80050; 80053; 84443; 85025

== ENCOUNTER 2024-03-08 09:28 | Outpatient (POV) | payer OTHER, SELFPAY | END 2024-03-08 23:59 | disposition home or self-care (01) | LOC: SC 09:28 | PROVIDERS: Visit Provider Specialist/Technologist | DX: Z00.00 Encounter for general adult medical examination without abnormal findings (principal) ==

== ENCOUNTER → 2024-08-31 07:00 | Outpatient (CLI) | payer OTHER, SELFPAY | PROVIDERS: PCP Nurse Practitioner Family | DX: R53.83 Other fatigue (principal) | CPT/HCPCS: G0399 ==

== ENCOUNTER 2024-12-02 19:43 | Inpatient (IN) | payer OTHER, SELFPAY ==
--- OUTSIDE RECORDS SUMMARY | 2024-11-08 09:05 | XMS_ITS | Encounter Summary ---
Author Organization [facility] Address [address] [place] [address] Care Team Providers Care Damage Assessor Name Role Phone Krish Chapman MD Unavailable [phone] Arron Cueva MD Primary Care Provider [phone] Reason for Referral * Imaging (Routine) - Closed Specialty Diagnoses / Procedures Referred By Lorenza t Referred To Contact Radiology Diagnoses Non-small cell cancer of left lung (CMS/HCC) Procedures CT Abdomen w IV Contrast Krish Chapman MD [address] [address] Phone: tel: fax: Referral ID Status Reason Start Date Expiration Date Visits Re quested Visits Authorized [id number] Closed 08/16/2024 02/15/2026 1 1 * Imaging (Routine) - Closed Specialty Diagnoses / Procedures Referred By Lorenza t Referred To Contact Radiology Diagnoses Non-small cell cancer of left lung (CMS/HCC) Procedures CT Chest w IV Contrast Krish Chapman MD [address] [address] Phone: tel: fax: Referral ID Status Reason Start Date Expiration Date Visits Re quested Visits Authorized [id number] Closed 08/16/2024 02/15/2026 1 1 Reason for Visit * Imaging (Routine) - Closed Specialty Diagnoses / Procedures Referred By Contac t Referred To Contact Radiology Diagnoses Non-small cell cancer of left lung (CMS/HCC) Procedures CT Abdomen w IV Contrast Krish Chapman MD [address] [address] Phone: tel: fax: Referral ID Status Reason Start Date Expiration Date Visits Re quested Visits Authorized [id number] Closed 08/16/2024 02/15/2026 1 1 Encounter Details Date Type Department Care Team (Latest Contact Info) Description 11/08/2024 9:05 AM EDT - 11/08/2024 12:18 PM EDT Hospital Encounter [facility] [address] [place] [address] Non-small cell cancer of left lung (CMS/HCC) Discharge Disposition: Home or Self Care Social History Tobacco Use Types Packs/Day Years Used Date Smoking Tobacco: Every Day Cigarettes 0.5 41.6 Started: 1983 Smokeless Tobacco: Former Snuff Quit: 2021 Alcohol Use Standard Drinks/Week Comments Yes 0 (1 standard drink = 0.6 oz pur e alcohol) rearly Humiliation, Afraid, Rape, and Kick questionnair e Answer Date Recorded Within the last year, have y ou been afraid of your partner or ex-partner? No 10/07/2023 Within the last year, have y ou been humiliated or emotionally abused in other ways by your partner or ex-partner? No Within the last year, have y ou been kicked, hit, slapped, or otherwise physically hurt by your partner or ex-partner? No 10/07/2023 Within the last year, have y ou been raped or forced to have any kind of sexual activity by your partner or ex-partner? No 10/07/2023 PHQ-2 Answer Date Recorded Patient Health Questionnaire-2 Score 0 04/19/2024 Hunger Vital Sign Answer Date Recorded Within the past 12 months, y ou worried that your food would run out before you got the money to buy more. Never true 10/07/19 24 Within the past 12 months, t he food you bought just didn't last and you didn't have money to get more. Never true 10/07/2023 PRAPARE - Transportation Answer Date Re corded In the past 12 months, has l ack of transportation kept you from medical appointments or from getting medications? No 09/09 In the past 12 months, has l ack of transportation kept you from meetings, work, or from getting things needed for daily living? No 10/07/2023 Housing Stability Vital Sign Answer Marko e Recorded In the last 12 months, was t here a time when you were not able to pay the mortgage or rent on time? No 10/07/2023 In the last 12 months, how many places have you lived? 1 10/07/2023 In the last 12 months, was t here a time when you did not have a steady place to sleep or slept in a fci (including now)? No 10/07/2023 PHQ-9 Answer Date Recorded Patient Health Questionnaire-9 Score 0 04/19/2024 CAGE ASSESSMENT Answer Date Recorded Cage unable to access Not on file 10/02/2023 Cage max number of drinks Not on file 2023 Cage Beverages a week Not on file 10/02/2023 Have you ever felt you should CUT down on your d rinking? 0 10/02/2023 Have you been ANNOYED by people criticizing your drinking? 0 10/02/2023 Have you felt GUILTY about your drinking? 0 10/02/2023 Have you had a drink first t franny in the morning ([employer]) to steady your nerves or to get rid of a hangover? 0 10/02/2023 CAGE Questionnaire Score 0 024 Utilities Answer Date Recorded In the past 12 months has th e eInstruction by [employer], gas, oil, or water company threatened to shut off services in your home? No 10/07/2023 PHQ-2A Answer Date Recorded Patient Health Questionnaire-2 Score 0 03/10/2023 Sex and Gender Information Value Date Recorded Sex Assigned at Male 12/08/2022 10:51 AM EDT Legal Sex Male 6:06 PM EDT Gender Identity Male 12/08/2022 10:51 AM EDT Sexual Orientation Straight 12/08/2022 10 :51 AM EDT documented as of this encounter Functional Status * Calculated C-SSRS Risk Score (Lifetime/Recent) Answer Date of Assessment Author No Risk Indicated 11/08/2024 10:24 AM EDT Gustavo Bryan * Question Answer Date of Assessment Author 1. Wish to be (Past 1 Month) No 025 10:24 AM EDT Gustavo Hoffmann 2. Non-Specific Active Suici nabila Thoughts (Past 1 Month) No 11/08/2024 10:24 AM EDT Belkys Hoffmannnix R 6. Suicidal Behavior (Lifetime) No 10:24 AM EDT Gustavo Hoffmann documented as of this encounter Medications at Time of Discharge albuterol 108 (90 Base) MCG/ACT inhaler Inhale 2 puffs every 6 hours as needed for wheezing or shortness of breath. 1 each 2 09/27/2024 betamethasone dipropionate 0.05 % EX cream Apply to areas with itchy rash two times per day. 135 g 2 05/24/2024 cholecalciferol (Vitamin D-3) 25 MCG (1000 UT) tablet Take 1 tablet (1,000 Units) by mouth daily. Start after week doses are completed. 30 tablet 3 08/30/2024 dapagliflozin (Farxiga) 10 MG tablet Take 1 tablet (10 mg) by mouth daily. ergocalciferol (Vitamin D-2) 1.25 MG (87889 UT) capsule Take 1 capsule (50,000 Units) by mouth 1 (one) time per week. Take for 8 weeks. 8 capsule 07/05/2024 fenofibrate (Tricor) 48 MG tablet Take 1 tablet (48 mg) by mouth daily. furosemide (Lasix) 20 MG tablet 10/13/2023 gabapentin (Neurontin) 100 MG capsule 10/21/2023 hydrOXYzine HCl (Atarax) 25 MG tablet Take 1-2 tablets every 6 hours as needed for itching. 60 tablet 3 05/24/2024 Lancets (OneTouch Delica Plus [id number]) [facility] 01/14/2024 Lantus SoloStar 100 UNIT/ML injection pen Inject 18 Units under the skin at night as needed for high blood sugar. 05/01/2023 loratadine (Claritin) 10 MG tablet Take 1 tablet (10 mg) by mouth daily. 09/20/2022 losartan (Cozaar) 100 MG tablet Take 1 tablet (100 mg) by mouth daily. 01/09/2021 metFORMIN XR (Glucophage-XR) 500 MG 24 hr tablet Take 2 tablets (1,000 mg) by mouth 1 (one) time each day with dinner. 05/14/2023 metoprolol succinate XL (Toprol-XL) 50 MG 24 hr tablet Take 1 tablet (50 mg) by mouth daily. 01/09/2021 Mounjaro 2.5 MG/0.5ML solution pen-injector solution pen-injector 02/10/2024 nystatin (Mycostatin) ointment Apply 1 Application topically if needed. 12/30/2022 ondansetron ODT (Zofran-ODT) 4 MG disintegrating tablet Take 1 tablet (4 mg) by mouth every 6 (six) hours if needed for nausea or vomiting. 20 tablet 05/24/2024 OneTouch Ultra test strip 01/14/2024 rosuvastatin (Crestor) 20 MG tablet Take 1 tablet (20 mg) by mouth daily. 10/08/2021 documented as of this encounter Miscellaneous Notes * Moni Joshua Arely - 11/08/2024 9:50 AM EDT Images from the original note were not included. 1639 Caring for Yourself after Contrast Imaging If you had ORAL contrast: ? You can go back to your normal diet and activities as tolerated. ? Drink plenty of fluids, unless told otherwise. If you had IV contrast: ? You can go back to your normal diet and activities as tolerated. ? Drink plenty of fluids, unless told otherwise. ? Leave a bandage on the site for 30 minutes (where the IV was inserted or blood was drawn). If you had Intravesical (bladder) contrast: ? Return to normal diet and activity. What you need to know about delayed reaction to IV contrast What is IV Contrast? ? Contrast is a dye that is put into your body through an IV. ? It is used for imaging scans such as CT scans and MRIs. ? The contrast makes blood vessels, organs and other parts of your body show up better on the scan. What do I need to do after IV contrast? ? Drink lots of fluids. This will help flush the contrast out of your system. ? Drink 2-3 extra glasses or bottles of water within 4 hours of your scan. What is a contrast reaction? ? A contrast reaction is a bad side effect from the contrast dye. ? It is rare but it does happen. ? They can be mild - such as sneezing, itching, or hives. ? They can be severe - such as trouble breathing, throat swelling, and irregular heart beat. When do these reactions happen? ? They often happen right after the contrast is injected. ? Some happen hours after going home. Go to the nearest Emergency Department right away if you have any of these symptoms after you leavethe clinic or hospital. ? Sneezing ? Itching in your mouth, throat, eyes, ears, or skin ? Rash or hives ? Throwing up or stomach sickness ? High heart rate or ?racing? of your heart ? Feeling dizzy or woozy ? Feeling short of breath or like you can?t take a deep breath ? Feeling very anxious for no other reason It is very important that these reactions be treated. Tell the doctor or nurse that you are having a reaction to IV contrast dye. Do not ignore any sign of a reaction! All reactions must be assessed by a doctor. Call 911 if you are alone and your reaction is more than mild sneezing or itching. If you have a mild reaction, call to speak with a Radiologist, explain that you havehad a contrast reaction, as this needs to be added to your medical record. documented in this encounter Plan of Treatment Upcoming Encounters Date Type Department Care Team (Late st Contact Info) Description 12/20/2024 9:20 AM EDT Appointment [facility] [address] [place] [address] 12/20/2024 10:00 AM EDT Clinical Support [facility] [address] [facility] [place] [address] 12/20/2024 10:20 AM EDT Office Visit [facility] [address] [facility] [place] [address] Krish Chapman MD [address] [phone] 12/20/2024 11:00 AM EDT Appointment [facility] [address] [place] [address] Scheduled Orders Name Type Priority Associated Diagnoses Order Schedule POCT creatinine venous clear green (no-gel) Point of Care Testing - Docked Devices Routine Once (Lab) for 1 Occurrences starting 11/08/2024 until 11/08/2024 documented as of this encounter Procedures Procedure Name Priority Date/Time Associated Diagnosis Comments CT ABDOMEN W IV CONTRAST Routine 11/08/2024 9:49 AM EDT Non-small cell cancer of left lung (CMS/HCC) CT CHEST W IV CONTRAST Routine 11/08/2024 9:49 AM EDT Non-small cell cancer of left lung (CMS/HCC) POCT CREATININE ISTAT UNSOLICITED RESULTS Routine 11/08/2024 9:36 AM EDT documented in this encounter Results * CT Abdomen w IV Contrast (11/08/2024 9:49 AM EDT) Anatomical Region Laterality Modality Abdomen Computed Tomogra phy Impressions 11/08/2024 12:19 PM EDT No evidence of disease progression in the chest and abdomen. Stable postsurgical changes from prior left upper lobectomy. 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 CRITICAL RESULT: No. COMMUNICATION: Per this written report. By electronically signing this report, I, the attending physician, attest that I have personally reviewed the images/data for the above examination(s) and agree with the final edited report. Drafted by Izabela Williamson MD on 11/08/2024 10:42 AM Final report signed by Jim Ball MD on 11/08/2024 12:19 PM Narrative 11/08/2024 12:19 PM EDT CLINICAL INDICATION: cancer evaluation TECHNIQUE: Multiple CT helical images were obtained from thoracic inlet through iliac crests with administration of IV contrast. 100 mL of Omnipaque-300 were administered intravenously. Total DLP (Dose-Length Product): 637.29 mGy.cm (accession [id number]), 637.29 mGy.cm (accession [id number]). Please note: The reported value represents the total of one or more individual components during the CT acquisition on this date and at this time, and as such, the same value may appear in more than one CT report depending on the interpreting/reporting physicians. COMPARISON: CT abdomen and chest 08/16/2024 FINDINGS: Mediastinum and Pleura: Right chest wall port port terminating within the superior cavoatrial junction. No mediastinal or hilar adenopathy. Calcified mediastinal, subcarinal and hilar lymph nodes. No pleural or pericardial effusion. Lungs: Central airways are patent. Prior left upper lobe lobectomy with subsegmental scarring. Multiple persistent right upper lobe predominant lobe ill-defined groundglass nodules. Unchanged multiple bilateral pulmonary calcified nodules. No new suspicious pulmonary nodules. Abdomen and Pelvis: Hepatic granulomas noted in an otherwise unremarkable liver. No biliary ductal dilatation. Surgically absent gallbladder. Splenic granulomas are otherwise unremarkable spleen. Unremarkable pancreas. Unremarkable kidneys without suspicious renal lesions. No hydronephrosis. Bilateral adrenalectomies. Unchanged kami hepatis lymph node enlargement measuring 15 mm in short axis (series 3, image 81). No retroperitoneal lymphadenopathy by CT size criteria. Conspicuous in number of nonenlarged and mildly enlarged mesenteric lymph nodes. Mild aortoiliac atherosclerotic disease. No ascites. Musculoskeletal: No aggressive osseous osseous lesions. No axillary adenopathy. Procedure Note Jim Ball MD - 11/08/2024 CLINICAL INDICATION: cancer evaluation TECHNIQUE: Multiple CT helical images were obtained from thoracic inlet through iliaccrests with administration of IV contrast. 100 mL of Omnipaque-300 wereadministered intravenously. Total DLP (Dose-Length Product): 637.29 mGy.cm (accession [id number]),637.29 mGy.cm (accession [id number]). Please note: The reported valuerepresents the total of one or more individual components during the CTacquisition on this date and at this time, and as such, the same value mayappear in more than one CT report depending on the interpreting/reportingphysicians. COMPARISON: CT abdomen and chest 08/16/2024 FINDINGS: Mediastinum and Pleura: Right chest wall port port terminating within thesuperior cavoatrial junction. No mediastinal or hilar adenopathy.Calcified mediastinal, subcarinal and hilar lymph nodes. No pleural orpericardial effusion. Lungs: Central airways are patent. Prior left upper lobe lobectomy withsubsegmental scarring. Multiple persistent right upper lobe predominantlobe ill-defined groundglass nodules. Unchanged multiple bilateralpulmonary calcified nodules. No new suspicious pulmonary nodules. Abdomen and Pelvis: Hepatic granulomas noted in an otherwise unremarkableliver. No biliary ductal dilatation. Surgically absent gallbladder.Splenic granulomas are otherwise unremarkable spleen. Unremarkablepancreas. Unremarkable kidneys without suspicious renal lesions. Nohydronephrosis. Bilateral adrenalectomies. Unchanged kami hepatis lymphnode enlargement measuring 15 mm in short axis (series 3, image 81). Noretroperitoneal lymphadenopathy by CT size criteria. Conspicuous in numberof nonenlarged and mildly enlarged mesenteric lymph nodes. Mild aortoiliacatherosclerotic disease. No ascites. Musculoskeletal: No aggressive osseous osseous lesions. No axillaryadenopathy. IMPRESSION: No evidence of disease progression in the chest and abdomen. Stable postsurgical changes from prior left upper lobectomy. Unchanged centrilobular groundglass nodules in the right upper lobeconsistent with smoking related respiratory bronchiolitis interstitiallung disease. CRITICAL RESULT: No. COMMUNICATION: Per this written report. By electronically signing this report, I, the attending physician, atttoriat I have personally reviewed the images/data for the aboveexamination(s) and agree with the final edited report. Drafted by Izabela Williamson MD on 11/08/2024 10:42 AM Final report signed by Jim Ball MD on 11/08/2024 12:19 PM Krish Chapman MD IMG CT PROCEDURES Final Result * CT Chest w IV Contrast (11/08/2024 9:49 AM EDT) Anatomical Region Laterality Modality Chest Computed Tomogra phy Impressions 11/08/2024 12:19 PM EDT No evidence of disease progression in the chest and abdomen. Stable postsurgical changes from prior left upper lobectomy. 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 CRITICAL RESULT: No. COMMUNICATION: Per this written report. By electronically signing this report, I, the attending physician, attest that I have personally reviewed the images/data for the above examination(s) and agree with the final edited report. Drafted by Izabela Williamson MD on 11/08/2024 10:42 AM Final report signed by Jim Ball MD on 11/08/2024 12:19 PM Narrative 11/08/2024 12:19 PM EDT CLINICAL INDICATION: cancer evaluation TECHNIQUE: Multiple CT helical images were obtained from thoracic inlet through iliac crests with administration of IV contrast. 100 mL of Omnipaque-300 were administered intravenously. Total DLP (Dose-Length Product): 637.29 mGy.cm (accession [id number]), 637.29 mGy.cm (accession [id number]). Please note: The reported value represents the total of one or more individual components during the CT acquisition on this date and at this time, and as such, the same value may appear in more than one CT report depending on the interpreting/reporting physicians. COMPARISON: CT abdomen and chest 08/16/2024 FINDINGS: Mediastinum and Pleura: Right chest wall port port terminating within the superior cavoatrial junction. No mediastinal or hilar adenopathy. Calcified mediastinal, subcarinal and hilar lymph nodes. No pleural or pericardial effusion. Lungs: Central airways are patent. Prior left upper lobe lobectomy with subsegmental scarring. Multiple persistent right upper lobe predominant lobe ill-defined groundglass nodules. Unchanged multiple bilateral pulmonary calcified nodules. No new suspicious pulmonary nodules. Abdomen and Pelvis: Hepatic granulomas noted in an otherwise unremarkable liver. No biliary ductal dilatation. Surgically absent gallbladder. Splenic granulomas are otherwise unremarkable spleen. Unremarkable pancreas. Unremarkable kidneys without suspicious renal lesions. No hydronephrosis. Bilateral adrenalectomies. Unchanged kami hepatis lymph node enlargement measuring 15 mm in short axis (series 3, image 81). No retroperitoneal lymphadenopathy by CT size criteria. Conspicuous in number of nonenlarged and mildly enlarged mesenteric lymph nodes. Mild aortoiliac atherosclerotic disease. No ascites. Musculoskeletal: No aggressive osseous osseous lesions. No axillary adenopathy. Procedure Note Jim Ball MD - 11/08/2024 CLINICAL INDICATION: cancer evaluation TECHNIQUE: Multiple CT helical images were obtained from thoracic inlet through iliaccrests with administration of IV contrast. 100 mL of Omnipaque-300 wereadministered intravenously. Total DLP (Dose-Length Product): 637.29 mGy.cm (accession [id number]),637.29 mGy.cm (accession [id number]). Please note: The reported valuerepresents the total of one or more individual components during the CTacquisition on this date and at this time, and as such, the same value mayappear in more than one CT report depending on the interpreting/reportingphysicians. COMPARISON: CT abdomen and chest 08/16/2024 FINDINGS: Mediastinum and Pleura: Right chest wall port port terminating within thesuperior cavoatrial junction. No mediastinal or hilar adenopathy.Calcified mediastinal, subcarinal and hilar lymph nodes. No pleural orpericardial effusion. Lungs: Central airways are patent. Prior left upper lobe lobectomy withsubsegmental scarring. Multiple persistent right upper lobe predominantlobe ill-defined groundglass nodules. Unchanged multiple bilateralpulmonary calcified nodules. No new suspicious pulmonary nodules. Abdomen and Pelvis: Hepatic granulomas noted in an otherwise unremarkableliver. No biliary ductal dilatation. Surgically absent gallbladder.Splenic granulomas are otherwise unremarkable spleen. Unremarkablepancreas. Unremarkable kidneys without suspicious renal lesions. Nohydronephrosis. Bilateral adrenalectomies. Unchanged kami hepatis lymphnode enlargement measuring 15 mm in short axis (series 3, image 81). Noretroperitoneal lymphadenopathy by CT size criteria. Conspicuous in numberof nonenlarged and mildly enlarged mesenteric lymph nodes. Mild aortoiliacatherosclerotic disease. No ascites. Musculoskeletal: No aggressive osseous osseous lesions. No axillaryadenopathy. IMPRESSION: No evidence of disease progression in the chest and abdomen. Stable postsurgical changes from prior left upper lobectomy. Unchanged centrilobular groundglass nodules in the right upper lobeconsistent with smoking related respiratory bronchiolitis interstitiallung disease. CRITICAL RESULT: No. COMMUNICATION: Per this written report. By electronically signing this report, I, the attending physician, magnus I have personally reviewed the images/data for the aboveexamination(s) and agree with the final edited report. Drafted by Izabela Williamson MD on 11/08/2024 10:42 AM Final report signed by Jim Ball MD on 11/08/2024 12:19 PM us Krish Chapman MD IMG CT PROCEDURES Final Result * POCT creatinine (11/08/2024 9:36 AM EDT) Pathologist [facility] Creatinine, Point of Care 0.7 0.7 - 1.2 mg/dL 11/08/2024 9:40 AM EDT [facility] POCT eGFR 107 mL/min/1. 73m*2 11/08/2024 9:40 AM EDT [facility] Farmworker ID Myranda Collado 11/08/2024 9:40 AM EDT HEALTHCARE LAB Device ID [id number] 11/08/2024 9:40 AM EDT [facility] Comment 11/08/2024 9:40 AM EDT [facility] Comment:Testing performed on i-STAT at the point of care. Reported eGFRcr in mL/min/1.73m2 is based the CKD-EPI 2020 equation that does not use a race coefficient. Blood Venous blood specimen / Unknown 11/08/2024 9:36 AM EDT 11/08/2024 9:40 AM EDT us Generic Provider Poct LAB POINT OF CARE TEST DOCKED DEVICE UNSOLICITED RESULTS Final Result [facility] [address] [id number] [facility] [address] [place] [address] documented in this encounter Visit Diagnoses Diagnosis Non-small cell cancer of left lung (CMS/HCC) documented in this encounter Administered Medications Inactive Administered Medications - up to 3 most recent administrations Medication Order MAR Action Action Date Dose Rate Site iohexol (OMNIPaque) 300 MG/ML injection 100 mL 100 mL, Intravenous, Once in imaging, 1 dose, Starting on Thu11/08/24 at 0913, Until Thu11/08/24 at 0950, Routine, Imaging Protocol Orders Given 11/08/2024 9:50 AM EDT 100 mL documented in this encounter Additional Health Concerns Assessment Noted Time PHQ-9 Depression Total Score: 0 04/19/20 24 1:14 PM EST A fall risk assessment has been complete d for the patient 11/08/2024 12:20 PM EDT A Body Mass Index follow-up plan has been documented for the patient 07/06/2024 1:05 AM EST documented as of this encounter Care Teams Damage Assessor Relationship Specialty Start Date End Date Arron Cueva MD [address] [place] [address] [place] [address] PCP - General Internal Medicine 11/03/22 Krish Chapman MD [address] [phone] Consulting Physician Medical Oncology 07/18/22 documented as of this encounter
--- OUTSIDE RECORDS SUMMARY | 2024-11-08 09:05 | XMS_ITS | Encounter Summary ---
Author Organization [facility] Address [address] [place] [address] Care Team Providers Care Bioinformatician Name Role Phone Krish Chapman MD Unavailable [phone] Arron Cueva MD Primary Care Provider [phone] Reason for Referral * Imaging (Routine) - Closed Specialty Diagnoses / Procedures Referred By Lorenza t Referred To Contact Radiology Diagnoses Non-small cell cancer of left lung (CMS/HCC) Procedures CT Abdomen w IV Contrast Krish Chapman MD [address] [address] Phone: tel: fax: Referral ID Status Reason Start Date Expiration Date Visits Re quested Visits Authorized [id number] Closed 08/16/2024 02/15/2026 1 1 * Imaging (Routine) - Closed Specialty Diagnoses / Procedures Referred By Lorenza t Referred To Contact Radiology Diagnoses Non-small cell cancer of left lung (CMS/HCC) Procedures CT Chest w IV Contrast Krish Chapman MD [address] [address] Phone: tel: fax: Referral ID Status Reason Start Date Expiration Date Visits Re quested Visits Authorized [id number] Closed 08/16/2024 02/15/2026 1 1 Reason for Visit * Imaging (Routine) - Closed Specialty Diagnoses / Procedures Referred By Contac t Referred To Contact Radiology Diagnoses Non-small cell cancer of left lung (CMS/HCC) Procedures CT Abdomen w IV Contrast Krish Chapman MD [address] [address] Phone: tel: fax: Referral ID Status Reason Start Date Expiration Date Visits Re quested Visits Authorized [id number] Closed 08/16/2024 02/15/2026 1 1 Encounter Details Date Type Department Care Team (Latest Contact Info) Description 11/08/2024 9:05 AM EDT - 11/08/2024 12:18 PM EDT Hospital Encounter [facility] Radiology [address] [place] [id number] Non-small cell cancer of left lung (CMS/HCC) [...] place to sleep or slept in a prison (including now)? No 10/07/2023 PHQ-9 Answer Date [...] drink first t franny in the morning (EYE-LAND PLANNER) to steady your nerves or to get rid of a hangover? 0 10/02/2023 CAGE Questionnaire Score 0 024 Utilities Answer Date Recorded In the past 12 months has th e [employer], gas, oil, or water company threatened to [...] mouth daily. ergocalciferol (Vitamin D-2) 1.25 MG (11166 UT) capsule Take 1 capsule (50,000 Units) [...] tablet 3 05/24/2024 Lancets (OneTouch Delica Plus Uxybfp28O) [facility] 01/14/2024 Lantus SoloStar 100 UNIT/ML injection pen [...] Info) Description 12/20/2024 9:20 AM EDT Appointment [facility] [address] [place] [address] 12/20/2024 10:00 AM EDT Clinical Support [facility] [address] [facility] [place] [address] 12/20/2024 10:20 AM EDT Office Visit [facility] [address] [facility] [place] [address] Krish Chapman MD [address] [phone] 12/20/2024 11:00 AM EDT Appointment [facility] Infusion [address] [place] [address] Scheduled Orders Name Type Priority Associated Diagnoses [...] Total DLP (Dose-Length Product): 637.29 mGy.cm (accession [id number]), 637.29 mGy.cm (accession [id number]). Please note: The reported value represents the [...] Total DLP (Dose-Length Product): 637.29 mGy.cm (accession [id number]),637.29 mGy.cm (accession [id number]). Please note: The reported valuerepresents the total [...] Total DLP (Dose-Length Product): 637.29 mGy.cm (accession [id number]), 637.29 mGy.cm (accession [id number]). Please note: The reported value represents the [...] Total DLP (Dose-Length Product): 637.29 mGy.cm (accession [id number]),637.29 mGy.cm (accession [id number]). Please note: The reported valuerepresents the total [...] POCT creatinine (11/08/2024 9:36 AM EDT) Pathologist [facility] Creatinine, Point of Care 0.7 0.7 - 1.2 mg/dL 11/08/2024 9:40 AM EDT [facility]ALTH[facility] POCT eGFR 107 mL/min/1. 73m*2 11/08/2024 9:40 AM EDT HEALTHCARE LAB Supervisor Opening And Picking ID Myranad Collado 11/08/2024 9:40 AM EDT HEALTHCARE LAB Device ID [id number] 11/08/2024 9:40 AM EDT [facility]ALTH[facility]ARE [facility] Comment 11/08/2024 9:40 AM EDT [facility] Comment:Testing performed on i-STAT at the point of care. Reported eGFRcr in mL/min/1.73m2 is based the CKD-EPI 2020 equation that does not use a race coefficient. Blood Venous blood specimen / Unknown 11/08/2024 9:36 AM EDT 11/08/2024 9:40 AM EDT us Generic Provider Poct LAB POINT OF CARE TEST DOCKED DEVICE UNSOLICITED RESULTS Final Result [facility] [address] [phone] [facility] [address] [place] [address] documented in this encounter Visit Diagnoses Diagnosis [...] documented as of this encounter Care Teams Bioinformatician Relationship Specialty Start Date End Date Arron Cueva MD [address] [place] [address] [place] [address] PCP - General Internal Medicine 11/03/22 Krish Chapman MD [address] [address] Consulting Physician Medical Oncology 07/18/22 documented as of this encounter
--- OUTSIDE RECORDS SUMMARY | 2024-11-08 11:15 | XMS_ITS | Encounter Summary ---
Author Organization [facility] Address [address] [id number] Care Team Providers Care Bilingual Customer Service Specialist Name Role Phone Krish Chapman MD Unavailable [phone] Arron Cueva MD Primary Care Provider [phone] Reason for Visit * Reason Comments Labs Port labs and port f lush Encounter Details Date Type Department Care Team (Latest Contact Info) Description 11/08/2024 11:15 AM EDT Clinical Support [facility] [address] [place] [address] Non-small cell cancer of left lung (CMS/HCC); Uncontrolled type 2 diabetes mellitus with hyperglycemia (CMS/HCC); Hyperlipemia, idiopathic familial; Tachycardia Social History Tobacco Use Types Packs/Day Years [...] place to sleep or slept in a nursing home (including now)? No 10/07/2023 PHQ-9 Answer Date [...] drink first t franny in the morning (EYE-INSPECTOR PLUG SEAM) to steady your nerves or to get rid of a hangover? 0 10/02/2023 CAGE Questionnaire Score 0 024 Utilities Answer Date Recorded In the past 12 months has th e electric, gas, oil, or water company threatened to [...] Indicated 11/08/2024 10:24 AM EDT Gustavo Bryan R * Question Answer Date of Assessment Author 1. Wish to be (Past 1 Month) No 025 10:24 AM EDT Gustavo Hoffmann R 2. Non-Specific Active Suici nabila Thoughts (Past 1 Month) No 11/08/2024 10:24 AM EDT Belkys Hoffmann oenix R 6. Suicidal Behavior (Lifetime) No 10:24 AM EDT Gustavo Hoffmann R documented as of this encounter Plan of Treatment Upcoming Encounters Date Type Department Care Team (Late st Contact Info) Description 12/20/2024 9:20 AM EDT Appointment [facility] [address] [place] [address] 12/20/2024 10:00 AM EDT Clinical Support [facility] [address] [address] 12/20/2024 10:20 AM EDT Office Visit [facility] [address] [address] Krish Chapman MD [address] [address] 12/20/2024 11:00 AM EDT Appointment [facility] [address] [place] [address] documented as of this encounter Procedures Procedure Name Priority Date/Time Associated Diagnosis Comments TSH REFLEX FT4 Routine 11/08/2024 11:03 AM EDT Non-small cell cancer of left lung (CMS/HCC) CBC WITH AUTO DIFFERENTIAL Routine 11/08/2024 11:03 AM EDT Non-small cell cancer of left lung (CMS/HCC) HEMOGLOBIN A1C Routine 11/08/2024 11:03 AM EDT Uncontrolled type 2 diabetes mellitus with hyperglycemia (CMS/HCC) Hyperlipemia, idiopathic familial Tachycardia LIPID PROFILE, PLASMA Routine 11/08/2024 11:03 AM EDT Uncontrolled type 2 diabetes mellitus with hyperglycemia (CMS/HCC) Hyperlipemia, idiopathic familial Tachycardia COMPREHENSIVE METABOLIC PANEL, PLASMA Routine 11/08/2024 11:03 AM EDT Non-small cell cancer of left lung (CMS/HCC) documented in this encounter Results * (ABNORMAL) Hemoglobin A1c (11/08/2024 11:03 AM EDT) Hemoglobin A1c 8.3(H) <5.7 % 11/08/2024 1:55 PM EDT [facility] Blood Venous blood specimen / Unknown Venipuncture / Unknown 11/08/2024 11:03 AM EDT 11/08/2024 11:28 AM EDT Narrative [facility] - 11/08/2024 1:55 PM EDT HA1C Interpretive Data: Diagnosis of Diabetes: Diabetic > or = 6.5% Pre-diabetic 5.7 to 6.4% Non-diabetic < or = 5.6% Glycemic Targets for Type I and Type II Diabetics: Non- Adults <7.0% Adults <6.0% Children and Adolescents <7.5% Source: [place] [employer]. Standards of medical care in diabetes,2017. Diabetes Care.2017:40 (suppl 1):S1-S135. Pippa Pollack APRN LAB BLOOD ORDERABLES Final Result [facility] [address] [place] [address] * (ABNORMAL) Lipid Profile, Plasma (11/08/2024 11:03 AM EDT) Cholesterol, Plasma 113 <200 mg/dL 11/08/2024 12:02 PM EDT [facility] Comment: Cholesterol Reference Range (age >17 years): Desirable <200 mg/dL Borderline 200 to 239 mg/dL Undesirable >239 mg/dL HDL 30(L) >=40 mg/dL 11/08/2024 12:02 PM EDT [facility] Comment: HDL Cholesterol Reference Ranges (age >17 years): Female, acceptable > or = 50 mg/dL Male, acceptable > or = 40 mg/dL Triglycerides, Plasma 204(H) <150 mg/dL 11/08/2024 12:02 PM EDT [facility] Comment: Triglyceride Reference Range (age >17 years): Desirable: <150 mg/dL Borderline high: 150 to 199 mg/dL High: 200 to 499 mg/dL Very high: >499 mg/dL Increased risk of pancreatitis: >1000 mg/dL Cholesterol/HDL Ratio 4 11/08/2024 12:02 PM EDT [facility] LDL, Calculated 50 <100 mg/dL 12:02 PM EDT [facility] Comment: LDL Cholesterol Reference Range (age >17 years): Optimal: <100 mg/dL Near or above optimal: 100 - 129 mg/dL Borderline high: 130 - 159 mg/dL High: 160 - 189 mg/dL Very high: >189 mg/dL LDL Cholesterol Reference Range (age <18 years): Desirable: <110 mg/dL Borderline: 110 - 129 mg/dL Undesirable: >130 mg/dL LDL Cholesterol is calculated using the Rodriguez/NIH equation. Fasting greater than or equal to 12 hours? No 11/08/2024 12:02 PM EDT [facility] Blood Blood sample taken from central line / Unknown (Port) Long-term Catheter / Unknown 11/08/2024 11:03 AM EDT 11/08/2024 11:26 AM EDT us Pipap Pollack APRN LAB BLOOD ORDERABLES Final Result [facility] [address] [place] [address] * TSH reflex FT4 (11/08/2024 11:03 AM EDT) Thyroid Stimulating Hormone, Plasma 3.90 0.40 - 4.20 uIU/mL 11/08/2024 12:02 PM EDT [facility] Blood Blood sample taken from central line / Unknown (Port) Long-term Catheter / Unknown 11/08/2024 11:03 AM EDT 11/08/2024 11:26 AM EDT us Krish Chapman MD LAB BLOOD ORDERABLES Final Res ult [facility] [address] [place] [address] * (ABNORMAL) Comprehensive metabolic panel (11/08/2024 11:03 AM EDT) Glucose, Plasma 230(H) 74 - 99 mg/dL 11/08/2024 12:02 PM EDT [facility] BUN, Plasma 11 7 - 21 mg/dL 11/08/2024 12:02 PM EDT [facility] Creatinine, Plasma 0.74 0.70 - 1.20 mg/dL 11/08/2024 12:02 PM EDT [facility] BUN/Creatinine Ratio 15 11/08/2024 12:02 PM EDT [facility] Sodium, Plasma 139 136 - 145 mmol/L 11/08/2024 12:02 PM EDT [facility] Potassium, Plasma 4.2 3.6 - 4.9 mmol/L 11/08/2024 12:02 PM EDT [facility] Chloride, Plasma 103 97 - 107 mmol/L 11/08/2024 12:02 PM EDT [facility] CO2, Plasma 26 22 - 29 mmol/L 11/08/2024 12:02 PM EDT [facility] Anion Gap 10 6 - 16 mmol/L 11/08/2024 12:02 PM EDT [facility] Total Calcium, Plasma 9.4 8.9 - 10.2 mg/dL 11/08/2024 12:02 PM EDT [facility] Total Protein 6.7 6.3 - 7.9 g/dL 11/08/2024 12:02 PM EDT [facility] Albumin, Plasma 4.1 3.5 - 5.2 g/dL 11/08/2024 12:02 PM EDT [facility] AST, Plasma 20 10 - 50 U/L 11/08/2024 12:02 PM EDT [facility] ALT, Plasma 22 10 - 50 U/L 11/08/2024 12:02 PM EDT [facility] Alkaline Phosphatase, Plasma 103 40 - 115 U/L 11/08/2024 12:02 PM EDT [facility] Total Bilirubin, Plasma 0.2 0.2 - 1.1 mg/dL 11/08/2024 12:02 PM EDT [facility] eGFRcr 105.0 mL/min/1.7 3m*2 11/08/2024 12:02 PM EDT [facility] Comment:Reported eGFRcr in m L/min/1.73m2 is based the CKD-EPI 2020 equation that does not use a race coefficient. Blood Blood sample taken from central line / Unknown (Port) Long-term Catheter / Unknown 11/08/2024 11:03 AM EDT 11/08/2024 11:26 AM EDT us Krish Chapman MD LAB BLOOD ORDERABLES Final Res ult [facility] [address] [place] [address] * (ABNORMAL) CBC and differential (11/08/2024 11:03 AM EDT) WBC Count 8.96 3.70 - 10.30 10*3/uL LAB HEMATOLOGY METHOD 11/08/2024 11:37 AM EDT [facility] RBC Count 4.70 4.60 - 6.10 10*6/uL LAB HEMATOLOGY METHOD 11/08/2024 11:37 AM EDT [facility] HGB 14.3 13.7 - 17.5 g/dL LAB HEMATOLOGY METHOD 11/08/2024 11:37 AM EDT [facility] HCT 42.6 40.0 - 51.0 % LAB HEMATOLOGY METHOD 11/08/2024 11:37 AM EDT [facility] Platelet Count 124(L) 155 - 369 10*3/uL LAB HEMATOLOGY METHOD 11/08/2024 11:37 AM EDT [facility] MCV 91 79 - 98 fL LAB HEMATOLOGY METHOD 11/08/2024 11:37 AM EDT [facility] MCH 30.4 26.0 - 32.0 pg LAB HEMATOLOGY METHOD 11/08/2024 11:37 AM EDT [facility] MCHC 33.6 30.7 - 35.5 g/dL LAB HEMATOLOGY METHOD 11/08/2024 11:37 AM EDT [facility] RDW 13.2 11.5 - 14.5 % LAB HEMATOLOGY METHOD 11/08/2024 11:37 AM EDT [facility] MPV 10.7 8.8 - 12.5 fL LAB HEMATOLOGY METHOD 11/08/2024 11:37 AM EDT [facility] nRBC 0.0 <=0.0 per 100 WBCs LAB HEMATOLOGY METHOD 11/08/2024 11:37 AM EDT [facility] Differential Type Automated LAB HEMATOLOGY METHOD 11/08/2024 11:37 AM EDT [facility] Neutrophils % 57 % LAB HEMATOLOGY METHOD 11/08/2024 11:37 AM EDT [facility] Lymphocytes % 33 % LAB HEMATOLOGY METHOD 11/08/2024 11:37 AM EDT [facility] Monocytes % 8 % LAB HEMATOLOGY METHOD 11/08/2024 11:37 AM EDT [facility] Eosinophils % 2 % LAB HEMATOLOGY METHOD 11/08/2024 11:37 AM EDT [facility] Basophils % 0 % LAB HEMATOLOGY METHOD 11/08/2024 11:37 AM EDT [facility] Immature Granulocytes % 0 % LAB HEMATOLOGY METHOD 11/08/2024 11:37 AM EDT [facility] Neutrophils Absolute 5.11 1.60 - 6.10 10*3/uL LAB HEMATOLOGY METHOD 11/08/2024 11:37 AM EDT [facility] Lymphocytes Absolute 2.96 1.20 - 3.90 10*3/uL LAB HEMATOLOGY METHOD 11/08/2024 11:37 AM EDT [facility] Monocytes Absolute 0.67 0.30 - 0.90 10*3/uL LAB HEMATOLOGY METHOD 11/08/2024 11:37 AM EDT [facility] Eosinophils Absolute 0.14 0.00 - 0.50 10*3/uL LAB HEMATOLOGY METHOD 11/08/2024 11:37 AM EDT [facility] Basophils Absolute 0.04 0.00 - 0.10 10*3/uL LAB HEMATOLOGY METHOD 11/08/2024 11:37 AM EDT [facility] Immature Granulocytes Absolute 0.04 0.00 - 0.06 10*3/uL LAB HEMATOLOGY METHOD 11/08/2024 11:37 AM EDT [facility] Blood Blood sample taken from central line / Unknown (Port) Long-term Catheter / Unknown 11/08/2024 11:03 AM EDT 11/08/2024 11:28 AM EDT Narrative [facility] - 11/08/2024 11:37 AM EDT Therapeutic decision making should be based on absolute values, rather than percentages. us Krish Chapman MD LAB BLOOD ORDERABLES Final Res ult [facility] [address] [place] [address] documented in this encounter Visit Diagnoses Diagnosis Non-small cell cancer of left lung (CMS/HCC) Uncontrolled type 2 diabetes mellitus with hyperglycemia (CMS/HCC) Hyperlipemia, idiopathic familial Other and unspecified hyperlipidemia Tachycardia Unspecified tachycardia documented in this encounter Additional Health Concerns Assessment Noted Time PHQ-9 Depression Total Score: 0 04/19/20 24 1:14 PM EST A fall risk assessment has been complete d for the patient 11/08/2024 12:20 PM EDT A Body Mass Index follow-up plan has been documented for the patient 07/06/2024 1:05 AM EST documented as of this encounter Care Teams Bilingual Customer Service Specialist Relationship Specialty Start Date End Date Arron Cueva MD [address] [place] [address] [place] [address] PCP - General Internal Medicine 11/03/22 Krish Chapman MD [address] [place] [phone] Consulting Physician Medical Oncology 07/18/22 documented as of this encounter
--- OUTSIDE RECORDS SUMMARY | 2024-11-08 11:15 | XMS_ITS | Encounter Summary ---
Author Organization [facility] Address [address] [id number] Care Team Providers Care Running Rigger Name Role Phone Krish Chapman MD Unavailable [phone] Arron Cueva MD Primary Care Provider [phone] Reason for Visit * Reason Comments Labs Port labs and port f lush Encounter Details Date Type Department Care Team (Latest Contact Info) Description 11/08/2024 11:15 AM EDT Clinical Support [facility] [address], [address] [place] [address] Non-small cell cancer of left lung (CMS/HCC); [...] place to sleep or slept in a retirement (including now)? No 10/07/2023 PHQ-9 Answer Date [...] drink first t franny in the morning (EYE-SUPERVISOR GLUING) to steady your nerves or to get [...] Info) Description 12/20/2024 9:20 AM EDT Appointment [facility] [address] [place] [address] 12/20/2024 10:00 AM EDT Clinical Support [facility] [address] [address] 12/20/2024 10:20 AM EDT Office Visit [facility] [address] [address] Krish Chapman MD [address] [address] 12/20/2024 11:00 AM EDT Appointment [facility] [address] [place] [address] documented as of this encounter Procedures Procedure [...] 8.3(H) <5.7 % 11/08/2024 1:55 PM EDT [facility] Blood Venous blood specimen / Unknown Venipuncture / Unknown 11/08/2024 11:03 AM EDT 11/08/2024 11:28 AM EDT Narrative [facility] - 11/08/2024 1:55 PM EDT HA1C Interpretive Data: Diagnosis of Diabetes: Diabetic > or = 6.5% Pre-diabetic 5.7 to 6.4% Non-diabetic < or = 5.6% Glycemic Targets for Type I and Type II Diabetics: Non- Adults <7.0% Adults <6.0% Children and Adolescents <7.5% Source: [place] [employer]. Standards of medical care in diabetes,2017. Diabetes Care.2017:40 (suppl 1):S1-S135. Pippa Pollack APRN LAB BLOOD ORDERABLES Final Result [facility] [address] [place] [address] * (ABNORMAL) Lipid Profile, Plasma (11/08/2024 11:03 AM EDT) Cholesterol, Plasma 113 <200 mg/dL 11/08/2024 12:02 PM EDT [facility] Comment: Cholesterol Reference Range (age >17 years): Desirable <200 mg/dL Borderline 200 to 239 mg/dL Undesirable >239 mg/dL HDL 30(L) >=40 mg/dL 11/08/2024 12:02 PM EDT [facility] Comment: HDL Cholesterol Reference Ranges (age >17 years): Female, acceptable > or = 50 mg/dL Male, acceptable > or = 40 mg/dL Triglycerides, Plasma 204(H) <150 mg/dL 11/08/2024 12:02 PM EDT [facility] Comment: Triglyceride Reference Range (age >17 years): Desirable: <150 mg/dL Borderline high: 150 to 199 mg/dL High: 200 to 499 mg/dL Very high: >499 mg/dL Increased risk of pancreatitis: >1000 mg/dL Cholesterol/HDL Ratio 4 11/08/2024 12:02 PM EDT [facility] LDL, Calculated 50 <100 mg/dL 12:02 PM EDT [facility] Comment: LDL Cholesterol Reference Range (age [...] 12 hours? No 11/08/2024 12:02 PM EDT [facility] Blood Blood sample taken from central line / Unknown (Port) Long-term Catheter / Unknown 11/08/2024 11:03 AM EDT 11/08/2024 11:26 AM EDT us Pippa Pollack APRN LAB BLOOD ORDERABLES Final Result [facility] [address] [place] [address] * TSH reflex FT4 (11/08/2024 11:03 AM EDT) Thyroid Stimulating Hormone, Plasma 3.90 0.40 - 4.20 uIU/mL 11/08/2024 12:02 PM EDT [facility] Blood Blood sample taken from central line / Unknown (Port) Long-term Catheter / Unknown 11/08/2024 11:03 AM EDT 11/08/2024 11:26 AM EDT us Krish Chapman MD LAB BLOOD ORDERABLES Final Res ult [facility] [address] [place] [address] * (ABNORMAL) Comprehensive metabolic panel (11/08/2024 11:03 AM EDT) Glucose, Plasma 230(H) 74 - 99 mg/dL 11/08/2024 12:02 PM EDT [facility] BUN, Plasma 11 7 - 21 mg/dL 11/08/2024 12:02 PM EDT [facility] Creatinine, Plasma 0.74 0.70 - 1.20 mg/dL 11/08/2024 12:02 PM EDT [facility] BUN/Creatinine Ratio 15 11/08/2024 12:02 PM EDT [facility] Sodium, Plasma 139 136 - 145 mmol/L 11/08/2024 12:02 PM EDT [facility] Potassium, Plasma 4.2 3.6 - 4.9 mmol/L 11/08/2024 12:02 PM EDT [facility] Chloride, Plasma 103 97 - 107 mmol/L 11/08/2024 12:02 PM EDT [facility] CO2, Plasma 26 22 - 29 mmol/L 11/08/2024 12:02 PM EDT [facility] Anion Gap 10 6 - 16 mmol/L 11/08/2024 12:02 PM EDT [facility] Total Calcium, Plasma 9.4 8.9 - 10.2 mg/dL 11/08/2024 12:02 PM EDT [facility] Total Protein 6.7 6.3 - 7.9 g/dL 11/08/2024 12:02 PM EDT [facility] Albumin, Plasma 4.1 3.5 - 5.2 g/dL 11/08/2024 12:02 PM EDT [facility] AST, Plasma 20 10 - 50 U/L 11/08/2024 12:02 PM EDT [facility] ALT, Plasma 22 10 - 50 U/L 11/08/2024 12:02 PM EDT [facility] Alkaline Phosphatase, Plasma 103 40 - 115 U/L 11/08/2024 12:02 PM EDT [facility] Total Bilirubin, Plasma 0.2 0.2 - 1.1 mg/dL 11/08/2024 12:02 PM EDT [facility] eGFRcr 105.0 mL/min/1.7 3m*2 11/08/2024 12:02 PM EDT [facility] Comment:Reported eGFRcr in m L/min/1.73m2 is based the CKD-EPI 2020 equation that does not use a race coefficient. Blood Blood sample taken from central line / Unknown (Port) Long-term Catheter / Unknown 11/08/2024 11:03 AM EDT 11/08/2024 11:26 AM EDT us Krish Chapman MD LAB BLOOD ORDERABLES Final Res ult [facility] [address] [place] [address] * (ABNORMAL) CBC and differential (11/08/2024 11:03 AM EDT) WBC Count 8.96 3.70 - 10.30 10*3/uL LAB HEMATOLOGY METHOD 11/08/2024 11:37 AM EDT [facility] RBC Count 4.70 4.60 - 6.10 10*6/uL LAB HEMATOLOGY METHOD 11/08/2024 11:37 AM EDT [facility] HGB 14.3 13.7 - 17.5 g/dL LAB HEMATOLOGY METHOD 11/08/2024 11:37 AM EDT [facility] HCT 42.6 40.0 - 51.0 % LAB HEMATOLOGY METHOD 11/08/2024 11:37 AM EDT [facility] Platelet Count 124(L) 155 - 369 10*3/uL LAB HEMATOLOGY METHOD 11/08/2024 11:37 AM EDT [facility] MCV 91 79 - 98 fL LAB HEMATOLOGY METHOD 11/08/2024 11:37 AM EDT [facility] MCH 30.4 26.0 - 32.0 pg LAB HEMATOLOGY METHOD 11/08/2024 11:37 AM EDT [facility] MCHC 33.6 30.7 - 35.5 g/dL LAB HEMATOLOGY METHOD 11/08/2024 11:37 AM EDT [facility] RDW 13.2 11.5 - 14.5 % LAB HEMATOLOGY METHOD 11/08/2024 11:37 AM EDT [facility] MPV 10.7 8.8 - 12.5 fL LAB HEMATOLOGY METHOD 11/08/2024 11:37 AM EDT [facility] nRBC 0.0 <=0.0 per 100 WBCs LAB HEMATOLOGY METHOD 11/08/2024 11:37 AM EDT [facility] Differential Type Automated LAB HEMATOLOGY METHOD 11/08/2024 11:37 AM EDT [facility] Neutrophils % 57 % LAB HEMATOLOGY METHOD 11/08/2024 11:37 AM EDT [facility] Lymphocytes % 33 % LAB HEMATOLOGY METHOD 11/08/2024 11:37 AM EDT [facility] Monocytes % 8 % LAB HEMATOLOGY METHOD 11/08/2024 11:37 AM EDT [facility] Eosinophils % 2 % LAB HEMATOLOGY METHOD 11/08/2024 11:37 AM EDT [facility] Basophils % 0 % LAB HEMATOLOGY METHOD 11/08/2024 11:37 AM EDT [facility] Immature Granulocytes % 0 % LAB HEMATOLOGY METHOD 11/08/2024 11:37 AM EDT [facility] Neutrophils Absolute 5.11 1.60 - 6.10 10*3/uL LAB HEMATOLOGY METHOD 11/08/2024 11:37 AM EDT [facility] Lymphocytes Absolute 2.96 1.20 - 3.90 10*3/uL LAB HEMATOLOGY METHOD 11/08/2024 11:37 AM EDT [facility] Monocytes Absolute 0.67 0.30 - 0.90 10*3/uL LAB HEMATOLOGY METHOD 11/08/2024 11:37 AM EDT [facility] Eosinophils Absolute 0.14 0.00 - 0.50 10*3/uL LAB HEMATOLOGY METHOD 11/08/2024 11:37 AM EDT [facility] Basophils Absolute 0.04 0.00 - 0.10 10*3/uL LAB HEMATOLOGY METHOD 11/08/2024 11:37 AM EDT [facility] Immature Granulocytes Absolute 0.04 0.00 - 0.06 10*3/uL LAB HEMATOLOGY METHOD 11/08/2024 11:37 AM EDT [facility] Blood Blood sample taken from central line / Unknown (Port) Long-term Catheter / Unknown 11/08/2024 11:03 AM EDT 11/08/2024 11:28 AM EDT Narrative [facility] - 11/08/2024 11:37 AM EDT Therapeutic decision making should be based on absolute values, rather than percentages. us Krish Chapman MD LAB BLOOD ORDERABLES Final Res ult [facility] [address] [place] [address] documented in this encounter Visit Diagnoses Diagnosis [...] documented as of this encounter Care Teams Running Rigger Relationship Specialty Start Date End Date Arron Cueva MD [address] [place] [address] PCP - General Internal Medicine 11/03/22 Krish Chapman MD [address] [place] [phone] Consulting Physician Medical Oncology 07/18/22 documented as of this encounter
--- OUTSIDE RECORDS SUMMARY | 2024-11-08 11:40 | XMS_ITS | Encounter Summary ---
Author Organization [facility] Address [address] [id number] Care Team Providers Care Dump Worker Name Role Phone Krish Chapman MD Unavailable [phone] Arron Cueva MD Primary Care Provider [phone] Reason for Visit * Reason Comments Follow-up * Episode Based Medications (Routine) - Pending Review Specialty Diagnoses / Procedures Referred By Contac t Referred To Contact Diagnoses Non-small cell cancer of left lung (CMS/HCC) Procedures Pembrolizumab Every 42 Days Krish Chapman MD [address] [address] Phone: tel: fax: [facility] [address] [place] [address] Phone: tel: fax: Referral ID Status Reason Start Date Expiration Date V isits Requested Visits Authorized [id number] Pending Review 12/19/2022 04/18/2026 1 28 Encounter Details Date Type Department Care Team (Latest Contact Info) Description 11/08/2024 11:40 AM EDT Office Visit [facility] [address] [facility], [address]nd [place] [address] Krish Chapman MD [address] [address] Uncontrolled type 2 diabetes mellitus with hyperglycemia (CMS/HCC) (Primary Dx); Non-small cell cancer of left lung (CMS/HCC); Hyperlipemia, idiopathic familial; Tachycardia; Severe obesity (BMI 35.0-39.9) with comorbidity (CMS/HCC); Malignant neoplasm metastatic to left adrenal gland (CMS/HCC); On antineoplastic chemotherapy Social History Tobacco Use Types Packs/Day Years Used Date Smoking Tobacco: Every Day Cigarettes 0.5 41.6 Started: 1983 Smokeless Tobacco: Former Snuff Quit: 2021 Tobacco Cessation:Ready to Q uit: Not Asked; Counseling Given: Not Answered Alcohol Use Standard Drinks/Week Comments Yes 0 [...] place to sleep or slept in a detention (including now)? No 10/07/2023 PHQ-9 Answer Date [...] drink first t franny in the morning (EYE-PAPER STACKER) to steady your nerves or to get rid of a hangover? 0 10/02/2023 CAGE Questionnaire Score 0 024 Utilities Answer Date Recorded In the past 12 months has th [employer], gas, oil, or water [employer] threatened to shut off services in your home? No 10/07/2023 PHQ-2A Answer Date Recorded Patient Health Questionnaire-2 Score 0 03/10/2023 Sex and Gender Information Value Date Recorded Sex Assigned at Male 12/08/2022 10:51 AM EDT Legal Sex Male 6:06 PM EDT Gender Identity Male 12/08/2022 10:51 AM EDT Sexual Orientation Straight 12/08/2022 10 :51 AM EDT documented as of this encounter Last Filed Vital Signs Vital Sign Reading Time Taken Comments Blood Pressure 124/82 11/08/2024 10:21 AM EDT Pulse 76 11/08/2024 10:21 AM EDT Temperature 36.3 C (97.4 F) 11/08/2024 10:21 AM EDT Respiratory Rate 18 11/08/2024 10:21 AM EDT Oxygen Saturation 94% 11/08/2024 10:21 AM EDT Inhaled Oxygen Concentration - - Weight 85.8 kg (189 lb 2.5 oz) 11/08/2024 10:21 AM EDT Height 161.3 cm (5' 3.5 ) 11/08/2024 10:21 AM ED T Body Mass Index 32.98 11/08/2024 10:21 AM EDT documented in this encounter Functional Status * Calculated C-SSRS [...] Gustavo Hoffmann documented as of this encounter Miscellaneous Notes * Progress Notes - Krish Chapman MD - 11/08/2024 11:40 AM EDT Medical Oncology Clinic Note Patient Name: Arron Ludwig Date of : 1965 59 y.o. Referring Physician:Krish Chapman MD [address] [place] [phone] Encounter Date: 11/02/2024 Chief Complaint: cancer follow up 59 yr old man [id number] Stage IB squamous PDL1 0% NSCLC s/p lobectomy 11/05/21. Then developed metastasis at left adrenal 06/2022 which was adenocarcinoma PDL1 <1%. then chemo then s/p adrenalectomy on 12/31/[address] chest/abodmen ahead of next pembrolizumab maintenance. 09/2021- 14mm left upper lobe spiculated nodule. 11/05/21- left upper lobectomy, mediastinal lymph node dissection Squamous PDL1 0% lymph nodes negative (0/2) 02/2022 CT left adrenal lesion 17mm, 06/2022 Biopsy adenocarcinoma PDL1 <1% 09/26/22-11/27/22 4 courses carbo/gem/pembrolizumab 12/19/22 first course pembrolizumab maintenance 12/31/22 left adrenalectomy showing adenocarcinoma 01/28/23 second course pembrolizumab maintenance 10/07/23 cholecystectomy Continuing pembroluzmab maintenance. ROS: Chronically tired with sleep apnea but bipap uncomfortable and does not use, sleeps 6 hours during the day and 4-5 hours at night now for more than a year, appetite good, gained back all weight lost since stopping glp1 agonist, no abdominal pain no diarrhea, no light headedness, no fever, itching improved with steroid cream not awakened by itching, no new joint aches, dentures dont fit.. All remaining ROS negative There were no vitals taken for this visit. Physical Exam: Gen: NAD, Labs, Imaging, Pathology: Lab Results Component Value Date WBC 7.25 09/27/2024 RBC 4.62 09/27/2024 HGB 13.8 09/27/2024 HCT 42.2 09/27/2024 MCV 91 09/27/2024 MCHC 32.7 09/27/2024 RDW 13.7 09/27/2024 PLT 148 (L) 09/27/2024 MPV 10.7 09/27/2024 Lab Results Component Value Date BUN 9 09/27/2024 CL 106 09/27/2024 NA 140 09/27/2024 K 4.7 09/27/2024 TP 6.7 09/27/2024 AST 26 09/27/2024 ALT 22 09/27/2024 There were no vitals taken for this visit. Lipase, Plasma (U/L) Date/Time Value 10/05/2023 0243 568 (H) Amylase (U/L) Date/Time Value 09/01/2023 0959 165 (H) CT chest abdomen no recurrence. Assessment and Plan: 59 y.o. man with prior [id number] Stage IB, now metastatic squamous PDL1 0% NSCLC s/p lobectomy 11/05/21 then left adrenal 06/2022 adenocarcinoma PDL1 <1% then chemo then s/p adrenalectomy on 12/31/22 to get next course pembrolizumab Cancer- getting pembro repeat CT chest/abdomen 3 months Can consider stopping pembrolizumab at 2 years. Insomnia from sleep apnea does not wish CPAP. May improve if loses more weight on GLP1 agonist. Obesity stopped GLP1 agonist. Will check with GP about finding an alternative. Did not have measles asked him to check with his GP if needs MMP Advised shingles vaccine Will address covid/flu vaccine next visit. PS 1 RTC in 6 weeks. * Progress Notes - Enedina Rico, PharmD - 11/08/2024 11:40 AM EDT Pharmacy Hematology/Oncology Treatment Plan Note Arron Ludwig is a 59 y.o. male with recurrent NSCLC (AC, TPS 0% with history of SCC). Cancer Staging No matching staging information was found for the patient. Study Patient: no Treatment Plan reviewed for Cycle 15 Pembrolizumab Maintenance Every 42 days Patient History: Treatment has been on hold due to choledocholithiasis and gallstone pancreatitis. Has since recovered and appropriate to resume treatment. Scans stable. Labs reviewed and appropriate to proceed with treatment as planned. 02/23/24: Mr. Ludwig is doing well today. OSH labs obtained on 02/18 are appropriate for treatment today. Pertinent labs: PLT 138, ANC 4.0, Creatinine 0.8, AST 39, ALT 25, Total bili 0.7. 04/05/24: Mr. Ludwig continues to have shortness of breath with exertion and with nonproductive cough. Seems to be the same and not changed from his previous visit. Dr. Chapman aware. Referral sent to pulmonary/sleep apnea for sleep study closer to home. Previous sleep apnea studies cancelled due to transportation limitations. Glucose still elevated, but being managed by PCP. Labs appropriate for treatment today. Of note, he still continues to smoke 1 pack per day and is not interested in smoking cessation at this time. Will continue to address. 05/24/24: Overall, Mr. Ludwig is doing well. His scans show no evidence of disease progression. Labs appropriate for treatment today. Will send in a topical steroid for rash. 07/05/24: Mr. Ludwig is still experiencing itching but is using hydroxyzine and topical corticosteroid. He is fatigued today, and Vitamin D and B12 levels drawn. Vitamin D is 10.4 so will start Vit D2 50k units weekly x 8 weeks followed by Vit D3 1000 IU daily. 08/16/24: Mr. Ludwig is tolerating treatment; his scans from today are stable. Labs are appropriate toproceed. 11/08/24: Mr. Ludwig continues to tolerate treatment well. Scans today show no evidence of disease progression. Labs reviewed and appropriate for treatment today. Recent Labs: Lab Results Component Value Date WBC 8.96 11/08/2024 NEUTROABS 5.11 11/08/2024 HGB 14.3 11/08/2024 PLT 124 (L) 11/08/2024 Lab Results Component Value Date GLUCOSE 230 (H) 11/08/2024 NA 139 11/08/2024 K 4.2 11/08/2024 MG 1.6 (L) 10/07/2023 BUN 11 11/08/2024 CREATININE 0.74 11/08/2024 Lab Results Component Value Date AST 20 11/08/2024 ALT 22 11/08/2024 ALKPHOS 103 11/08/2024 BILITOT 0.2 11/08/2024 Lab Results Component Value Date TSH 3.90 11/08/2024 Visit Vitals BP 124/82 (BP Location: Left arm, Patient Position: Sitting, BP Cuff Size: Adult) Pulse 76 Temp 36.3 ??C (97.4 ??F) (Oral) Resp 18 Treatment Plan: Pembrolizumab 400 mg IV on Day 1 Every 42 days [x] No dose adjustments made Current Treatment Plan History: Carbo/[place]/Pembro C1: 09/26/22, 10/03/22 C2: 10/17/22, 10/24/22 C3: 11/07/22, 11/14/22 C4: 11/27/22 - D8 gem held for counts Pembro maintenance C1: 12/19/22 C2: 01/28/23 C3: 03/10/23 C4: 04/24/23 C5: 06/05/23 C6: 07/21/23 C7: 12/01/23 - delayed for gallstones/pancreatitis C8: 01/12/24 C9: 02/23/24 C10: 04/05/24 C11: 05/24/24 C12: 07/05/24 C13: 08/16/24 C14: 09/27/24 C15: 11/08/24 Prior Treatment History: Resection 10/2021 Assessment/Plan: Patient will return to clinic in 6 weeks w/ scans. Will follow-up at that time. Pharmacist Attestation: Enedina Rico PharmD Hematology/Oncology Clinical Data Consultant documented in this encounter Plan of Treatment Upcoming Encounters Date Type Department Care Team (Late st Contact Info) Description 12/20/2024 9:20 AM EDT Appointment [facility] [address] [place] [address] 12/20/2024 10:00 AM EDT Clinical Support [facility] [address] [facility], [address] [place] [phone] 12/20/2024 10:20 AM EDT Office Visit [facility] [address] [facility], [address] [place] [address] Krish Chapman MD [address] [phone] 12/20/2024 11:00 AM EDT Appointment [facility] [address] [place] [address] documented as of this encounter Results * (ABNORMAL) Hemoglobin A1c (11/08/2024 11:03 AM EDT) Hemoglobin A1c 8.3(H) <5.7 % 11/08/2024 1:55 PM EDT [facility] Blood Venous blood specimen / Unknown Venipuncture / Unknown 11/08/2024 11:03 AM EDT 11/08/2024 11:28 AM EDT Narrative [facility] - 11/08/2024 1:55 PM EDT HA1C Interpretive Data: Diagnosis of Diabetes: Diabetic > or = 6.5% Pre-diabetic 5.7 to 6.4% Non-diabetic < or = 5.6% Glycemic Targets for Type I and Type II Diabetics: Non- Adults <7.0% Adults <6.0% Children and Adolescents <7.5% Source: [place] [employer]. Standards of medical care in diabetes,2017. Diabetes Care.2017:40 (suppl 1):S1-S135. Pippa Pollack HEALTH CAREERS INSTRUCTOR LAB BLOOD ORDERABLES Final Result [facility] [address] [place] [address] * (ABNORMAL) Lipid Profile, Plasma (11/08/2024 11:03 AM EDT) Cholesterol, Plasma 113 <200 mg/dL 11/08/2024 12:02 PM EDT [facility] Comment: Cholesterol Reference Range (age >17 years): Desirable <200 mg/dL Borderline 200 to 239 mg/dL Undesirable >239 mg/dL HDL 30(L) >=40 mg/dL 11/08/2024 12:02 PM EDT [facility] Comment: HDL Cholesterol Reference Ranges (age >17 years): Female, acceptable > or = 50 mg/dL Male, acceptable > or = 40 mg/dL Triglycerides, Plasma 204(H) <150 mg/dL 11/08/2024 12:02 PM EDT [facility] Comment: Triglyceride Reference Range (age >17 years): Desirable: <150 mg/dL Borderline high: 150 to 199 mg/dL High: 200 to 499 mg/dL Very high: >499 mg/dL Increased risk of pancreatitis: >1000 mg/dL Cholesterol/HDL Ratio 4 11/08/2024 12:02 PM EDT [facility] LDL, Calculated 50 <100 mg/dL 12:02 PM EDT [facility] Comment: LDL Cholesterol Reference Range [...] 12 hours? No 11/08/2024 12:02 PM EDT [facility] Blood Blood sample taken from central line / Unknown (Port) Long-term Catheter / Unknown 11/08/2024 11:03 AM EDT 11/08/2024 11:26 AM EDT Pippa Scales Jaki GINETTE LAB BLOOD ORDERABLES Final Result [facility] [address] [place] [address] documented in this encounter Visit Diagnoses Diagnosis Uncontrolled type 2 diabetes mellitus with hyperglycemia (CMS/HCC)- Primary Non-small cell cancer of left lung (CMS/HCC) Hyperlipemia, idiopathic familial Other and unspecified hyperlipidemia Tachycardia Unspecified tachycardia Severe obesity (BMI 35.0-39.9) with comorbidity (CMS/HCC) Malignant neoplasm metastatic to left adrenal gland (CMS/HCC) On antineoplastic chemotherapy documented in this encounter Additional Health Concerns Assessment Noted Time PHQ-9 Depression Total Score: 0 04/19/20 1:14 PM EST A fall risk assessment has been complete d for the patient 11/08/2024 12:20 PM EDT A Body Mass Index follow-up plan has been documented for the patient 07/06/2024 1:05 AM EST documented as of this encounter Care Teams Dump Worker Relationship Specialty Start Date End Date Arron Cueva MD [address] [place] [address] PCP - General Internal Medicine 11/03/22 Krish Chapman MD [address] [phone] Consulting Physician Medical Oncology 07/18/22 documented as of this encounter
--- OUTSIDE RECORDS SUMMARY | 2024-11-08 11:40 | XMS_ITS | Encounter Summary ---
Author Organization [facility] Address [address] [id number] Care Team Providers Care Food Sampler Name Role Phone Krish Chapman MD Unavailable [phone] Arron Cueva MD Primary Care Provider [phone] Reason for Visit * Reason Comments Follow-up * Episode Based Medications (Routine) - Pending Review Specialty Diagnoses / Procedures Referred By Contac t Referred To Contact Diagnoses Non-small cell cancer of left lung (CMS/HCC) Procedures Pembrolizumab Every 42 Days Krish Chapman MD [address] [address] Phone: tel: fax: [facility] [address] [place] [address] Phone: tel: fax: Referral ID Status Reason Start Date Expiration Date V isits Requested Visits Authorized [id number] Pending Review 12/19/2022 04/18/2026 1 28 Encounter Details Date Type Department Care Team (Latest Contact Info) Description 11/08/2024 11:40 AM EDT Office Visit [facility] 800 [facility], 2nd [place] [address] Krish Chapman MD [address] [address] Uncontrolled type 2 diabetes mellitus [...] place to sleep or slept in a group home (including now)? No 10/07/2023 PHQ-9 Answer [...] drink first t franny in the morning (EYE-EXECUTIVE WELLNESS PROGRAMS DIRECTOR) to steady your nerves or to get rid of a hangover? 0 10/02/2023 CAGE Questionnaire Score 0 024 Utilities Answer Date Recorded In the past 12 months has th [employer], gas, oil, or water [employer] threatened to shut off services in your [...] 1965 59 y.o. Referring Physician:Krish Chapman MD [address] [place] [phone] Encounter Date: 11/02/2024 Chief Complaint: cancer follow up 59 yr old man [id number] Stage IB squamous PDL1 0% NSCLC s/p [...] and Plan: 59 y.o. man with prior [id number] Stage IB, now metastatic squamous PDL1 0% [...] dose adjustments made Current Treatment Plan History: [place] C1: 09/26/22, 10/03/22 C2: 10/17/22, 10/24/22 C3: [...] Pharmacist Attestation: Enedina Rico PharmD Hematology/Oncology Clinical Vocational Horticulture Instructor documented in this encounter Plan of Treatment Upcoming Encounters Date Type Department Care Team (Late st Contact Info) Description 12/20/2024 9:[address] [facility] [address], [address] [place] [address] 12/20/2024 10:00 AM EDT Clinical Support [facility] 800 [facility], [address] [place] [phone] 12/20/2024 10:20 AM EDT Office Visit [facility] 800 [facility], [address] [place] [address] Krish Chapman MD [address] [address] 12/20/2024 11:00 AM EDT Appointment [facility] [address] [place] [address] documented as of this encounter Results * (ABNORMAL) Hemoglobin A1c (11/08/2024 11:03 AM EDT) Hemoglobin A1c 8.3(H) <5.7 % 11/08/2024 1:55 PM EDT [facility] Blood Venous blood specimen / Unknown Venipuncture / Unknown 11/08/2024 11:03 AM EDT 11/08/2024 11:28 AM EDT Narrative [facility] - 11/08/2024 1:55 PM EDT HA1C Interpretive Data: Diagnosis of Diabetes: Diabetic > or = 6.5% Pre-diabetic 5.7 to 6.4% Non-diabetic < or = 5.6% Glycemic Targets for Type I and Type II Diabetics: Non- Adults <7.0% Adults <6.0% Children and Adolescents <7.5% Source: [place] [employer]. Standards of medical care in diabetes,2017. Diabetes Care.2017:40 (suppl 1):S1-S135. Pippa Pollack MITER OPERATOR LAB BLOOD ORDERABLES Final Result [facility] [address] [place] [address] * (ABNORMAL) Lipid Profile, Plasma (11/08/2024 11:03 AM EDT) Cholesterol, Plasma 113 <200 mg/dL 11/08/2024 12:02 PM EDT [facility] Comment: Cholesterol Reference Range (age >17 years): Desirable <200 mg/dL Borderline 200 to 239 mg/dL Undesirable >239 mg/dL HDL 30(L) >=40 mg/dL 11/08/2024 12:02 PM EDT [facility] Comment: HDL Cholesterol Reference Ranges (age >17 years): Female, acceptable > or = 50 mg/dL Male, acceptable > or = 40 mg/dL Triglycerides, Plasma 204(H) <150 mg/dL 11/08/2024 12:02 PM EDT [facility] Comment: Triglyceride Reference Range (age >17 years): Desirable: <150 mg/dL Borderline high: 150 to 199 mg/dL High: 200 to 499 mg/dL Very high: >499 mg/dL Increased risk of pancreatitis: >1000 mg/dL Cholesterol/HDL Ratio 4 11/08/2024 12:02 PM EDT [facility] LDL, Calculated 50 <100 mg/dL 12:02 PM EDT [facility] Comment: LDL Cholesterol Reference Range [...] 12 hours? No 11/08/2024 12:02 PM EDT [facility] Blood Blood sample taken from central line / Unknown (Port) Long-term Catheter / Unknown 11/08/2024 11:03 AM EDT 11/08/2024 11:26 AM EDT Pippa Scales Jaki GINETTE LAB BLOOD ORDERABLES Final Result [facility] [address] [place] [address] documented in this encounter Visit Diagnoses Diagnosis [...] documented as of this encounter Care Teams Food Sampler Relationship Specialty Start Date End Date Arron Cueva MD [address] [place] [address] PCP - General Internal Medicine 11/03/22 Krish Chapman MD [address] [address] Consulting Physician Medical Oncology 07/18/22 documented as of this encounter
--- OUTSIDE RECORDS SUMMARY | 2024-11-08 12:19 | XMS_ITS | Encounter Summary ---
Author Organization [facility] Address [address] [id number] Care Team Providers Care Fleet Mechanic Name Role Phone Krish Chapman MD Unavailable [phone] Arron Cuvea MD Primary Care Provider [phone] Reason for Visit * Episode Based Medications (Routine) - Pending Review Specialty Diagnoses / Procedures Referred By Contac t Referred To Contact Diagnoses Non-small cell cancer of left lung (CMS/HCC) Procedures Pembrolizumab Every 42 Days Krish Chapman MD [address] [address] Phone: tel: fax: [facility] [address] [place] [address] Phone: tel: fax: Referral ID Status Reason Start Date Expiration Date V isits Requested Visits Authorized [id number] Pending Review 12/19/2022 04/18/2026 1 28 Encounter Details Date Type Department Care Team (Latest Contact Info) Description 11/08/2024 12:19 PM EDT - 11/08/2024 11:59 PM EDT Hospital Encounter [facility] [address] [place] [address] Non-small cell cancer of left lung (CMS/HCC) (Primary Dx) Discharge Disposition: Home or Self Care Social [...] money to buy more. Never true 10/07/19 Within the past 12 months, t he [...] place to sleep or slept in a correction (including now)? No 10/07/2023 PHQ-9 Answer Date [...] drink first t franny in the morning (EYE-CABLE REPAIRER) to steady your nerves or to get rid of a hangover? 0 10/02/2023 CAGE Questionnaire Score 0 024 Utilities Answer Date Recorded In the past 12 months has [employer], gas, oil, or water [employer] threatened to shut off services in your [...] Sign Reading Time Taken Comments Blood Pressure 120/81 11/08/2024 12:20 PM EDT Pulse 80 11/08/2024 12:20 PM EDT Temperature 36.3 C (97.3 F) 11/08/2024 12:20 PM EDT Respiratory Rate 16 11/08/2024 12:2 0 PM EDT Oxygen Saturation 95% 11/08/2024 12: 20 PM EDT Inhaled Oxygen Concentration - - Weight 85.6 kg (188 lb 11.4 oz) 025 12:20 PM EDT Height 165.1 cm (5' 5 ) 11/08/2024 12:2 0 PM EDT Body Mass Index 31.4 11/08/2024 12:20 PM EDT documented in this encounter Functional Status [...] mouth daily. ergocalciferol (Vitamin D-2) 1.25 MG (57324 UT) capsule Take 1 capsule (50,000 Units) [...] tablet 3 05/24/2024 Lancets (OneTouch Delica Plus [id number]) [facility] 01/14/2024 Lantus SoloStar 100 UNIT/ML injection pen [...] daily. 10/08/2021 documented as of this encounter Plan of Treatment Upcoming Encounters Date Type Department Care Team ([facility] st Contact Info) Description 12/20/2024 9:20 AM EDT Appointment [facility] [address] [place] [address] 12/20/2024 10:00 AM EDT Clinical Support [facility] [address] [place] [phone] 12/20/2024 10:20 AM EDT Office Visit [facility] [address] [place] [address] Krish Chapman MD [address] [address] 12/20/2024 11:00 AM EDT Appointment [facility] [address] [place] [address] documented as of this encounter Visit Diagnoses Diagnosis Non-small cell cancer of left lung (CMS/HCC)- Primary documented in this encounter Administered Medications Inactive Administered Medications - up to 3 most recent administrations Medication Order MAR Action Action Date Dose Rate Site pembrolizumab (Keytruda) 400 mg in sodium chloride 0.9% 100 mL IVPB 400 mg, Intravenous, at 292 mL/hr, Administer over 30 Minutes, Once, Filter Required. Use 0.2 micron filter., On 11/08/24 at 1245, For 1 dose, In 100 mL NSIndications:Non-small cell cancer of left lung (CMS/HCC) New Bag 11/08/2024 12:52 PM EDT 400 mg 292 mL/hr documented in this encounter Additional Health Concerns Assessment Noted Time PHQ-9 Depression Total Score: 0 04/19/20 1:14 PM EST A fall risk assessment has been complete d for the patient 11/08/2024 12:20 PM EDT A Body Mass Index follow-up plan has been documented for the patient 07/06/2024 1:05 AM EST documented as of this encounter Care Teams Fleet Mechanic Relationship Specialty Start Date End Date Arron Cueva MD [address] [place] [address] PCP - General Internal Medicine 11/03/22 Krish Chapman MD [address] [address] Consulting Physician Medical Oncology 07/18/22 documented as of this encounter
--- OUTSIDE RECORDS SUMMARY | 2024-11-08 12:19 | XMS_ITS | Encounter Summary ---
Author Organization [facility] Address [address] [id number] Care Team Providers Care Wardrobe Specialist Name Role Phone Krish Chapman MD Unavailable [phone] Arron Cueva MD Primary Care Provider [phone] Reason for Visit * Episode Based Medications (Routine) - Pending Review Specialty Diagnoses / Procedures Referred By Contac t Referred To Contact Diagnoses Non-small cell cancer of left lung (CMS/HCC) Procedures Pembrolizumab Every 42 Days Krish Chapman MD [address] [address] Phone: tel: fax: [facility] [address] [place] [address] Phone: tel: fax: Referral ID Status Reason Start Date Expiration Date V isits Requested Visits Authorized [id number] Pending Review 12/19/2022 04/18/2026 1 28 Encounter Details Date Type Department Care Team (Latest Contact Info) Description 11/08/2024 12:19 PM EDT - 11/08/2024 11:59 PM EDT Hospital Encounter [facility] [address] [place] [address] Non-small cell cancer of left [...] place to sleep or slept in a penitentiary (including now)? No 10/07/2023 PHQ-9 Answer Date [...] drink first t franny in the morning (EYE-CRUSHER) to steady your nerves or to get rid of a hangover? 0 10/02/2023 CAGE Questionnaire Score 0 024 Utilities Answer Date Recorded In the past 12 months has [employer], gas, oil, or water [employer] threatened to shut off services in your [...] mouth daily. ergocalciferol (Vitamin D-2) 1.25 MG (78029 UT) capsule Take 1 capsule (50,000 Units) [...] tablet 3 05/24/2024 Lancets (OneTouch Delica Plus [id number]) [facility] 01/14/2024 Lantus SoloStar 100 UNIT/ML injection pen [...] Upcoming Encounters Date Type Department Care Team ([facility] st Contact Info) Description 12/20/2024 9:20 AM EDT Appointment [facility] [address] [place] [address] 12/20/2024 10:00 AM EDT Clinical Support [facility] [address] [place] [phone] 12/20/2024 10:20 AM EDT Office Visit [facility] [address] [place] [phone] Krish Chapman MD [address] [phone] 12/20/2024 11:00 AM EDT Appointment [facility] [address] [place] [address] documented as of this encounter Visit Diagnoses [...] documented as of this encounter Care Teams Wardrobe Specialist Relationship Specialty Start Date End Date Arron Cueva MD [address] [place] [address] PCP - General Internal Medicine 11/03/22 Krish Chapman MD [address] [address] Consulting Physician Medical Oncology 07/18/22 documented as of this encounter
--- OUTSIDE RECORDS SUMMARY | 2024-12-02 19:05 | XMS_ITS | Continuity of Care Document ---
Author Organization [facility]. If a dditional information is needed, contact Health Information Management at [phone] Address [address] [place] [address] Phone Care Team Providers Care Assistant Case Manager Name Role Phone Unavailable Unavailable Unavailable Problems Uvulitis Onset:28-May-2018 Stefany Wisdom MD Status:Acute Allergic reaction Onset:28-May-2018 Stefany Wisdom MD Status:Acute Functional Status Functional finding 27-May-2018 Functional finding 27-May-2018 Functional finding 27-May-2018 Medications diphenhydrAMINE hydrochlorid e 25 MG Oral Capsule;50 MG ORAL Q4H Start:27-May-2018 Comments:50 mg PO Q4H As Needed for Allergic Symptoms predniSONE 20 MG Oral Tablet ;3 TAB ORAL Daily Start:27-May-2018 Comments:3 tab PO DAILY Adrenaclick;0.3 MG INTRAMUSC ULAR Once Start:27-May-2018 Comments:0.3 mg IM ONCE As Needed for Anaphylaxis [id number];20 MG OR AL Two Times a Day Start:27-May-2018 Comments:20 mg PO BID Social History Smoking Status Heavy tobacco smoker Recorded: 27-May-2018
[2024-12-02 19:44] VITALS: BP 90/50; PULSE 95; RESP 16; TEMP 36.8; O2SAT 99; BMI 29.9
--- OUTSIDE RECORDS SUMMARY | 2024-12-02 20:02 | XMS_ITS | Clinical Summary ---
Author Organization [facility] [place] [address] Care Team Providers Care Developmental Services Worker Name Role Phone Unavailable Primary Care Provider Unavailabl e Social History Tobacco Use Types Packs/Day Years Used Date Smoking Tobacco: Never Assessed Sex and Gender Information Value Date Recorded Sex Assigned at Not on file Legal Sex Male 8:28 AM EDT Gender Identity Not on file Sexual Orientation Not on file Plan of Treatment Health Maintenance Due Date Last Done Comments Annual Wellness Exam 1969 DTaP/TDaP/Td (1 - Tdap) 1985 Hepatitis B Vaccine (1 of 3 - 19+ 3-dose series) 1985 Cologuard 09/07/2011 Colon Cancer Screening 09/07/2011 Colonoscopy 09/07/2011 FIT 09/07/2011 Sigmoidoscopy 09/07/2011 Virtual Colonography 09/07/2011 Pneumococcal Vaccine 50+ (1 of 1 - PCV) 2016 Zoster (1 of 2) 2016 COVID-19 Vaccine (2023-2 5 season) 2024 Influenza Vaccine (#1) 2025 Meningococcal B Vaccine Aged Out No l onger eligible based on patient's age to complete this topic
--- OUTSIDE RECORDS SUMMARY | 2024-12-02 20:02 | XMS_ITS | Encounter Summary ---
Author Organization [facility] Address [address] [place] [address] Care Team Providers Care Auger Press Operator Name Role Phone Yaya Cuevas MD Primary Care Provider [phone] Krish Chapman MD Unavailable [phone] Arron Cueva MD Primary Care Provider [phone] Reason for Referral * Consultation (Routine) - Closed Specialty Diagnoses / Procedures Referred By Contcee t Referred To Contact Cardiothoracic Surgery Diagnoses Pulmonary nodule Yaya Cuevas MD [address] [place] [address] Phone: tel: fax: Referral ID Status Reason Start Date Expiration Date V isits Requested Visits Authorized [id number] Closed Specialty Services Required 08/22/2021 02/21/2023 1 1 Encounter Details Date Type Department Care Team (Late st Contact Info) Description 08/22/2021 [facility] [address] [place] [address] Yaya Cuevas MD [address] [place] [address] Pulmonary nodule (Primary Dx) Social History Tobacco Use Types Packs/Day Years Used Date Smoking Tobacco: Never Assessed Sex and Gender Information Value Date Recorded Sex Assigned at Male 12/08/2022 10:51 AM EDT Legal Sex Male 6:06 PM EDT Gender Identity Male 12/08/2022 10:51 AM EDT Sexual Orientation Straight 12/08/2022 10 :51 AM EDT documented as of this encounter Plan of Treatment Upcoming Encounters Date Type Department Care Team (Late st Contact Info) Description 12/20/2024 9:20 AM EDT Appointment [facility] [address] [place] [address] 12/20/2024 10:00 AM EDT Clinical Support [facility] 800 [facility], [address] [place] [phone] 12/20/2024 10:20 AM EDT Office Visit [facility] 800 [facility], [address] [place] [phone] Krish Chapman MD [address] [phone] 12/20/2024 11:00 AM EDT Appointment [facility] [address] [place] [phone] Scheduled Referrals Name Type Priority Associated Diagnoses Order Schedule Ambulatory referral to Cardiothoracic Surgery Outpatient Referral Routine Pulmonary nodule Expected: 08/22/2021 (Approximate), Expires: 02/21/2023 documented as of this encounter Visit Diagnoses Diagnosis Pulmonary nodule- Primary Other diseases of lung, not elsewhere classified documented in this encounter Additional Health Concerns Infection Onset Date Last Indicated Resolved Time C. difficile Rule-Out 10/31/2022 10/31/20222022 4:03 AM EDT C. difficile Comment:Pt tested negative for C-Diff 10/31/2022 10/31/2022 10/31/2022 6:27 PM E DT C. difficile Comment:Neg admit test and no diarrhea 11/01/2022 11/01/2022 12/31/2022 7:40 AM E DT documented as of this encounter Care Teams Auger Press Operator Relationship Specialty Start Date End Date Yaya Cuevas MD [address] [place] [address] PCP - General 10/02/21 11/02/22 Arron Cueva MD [address] [place] [address] PCP - General Internal Medicine 11/03/22 Krish Chapman MD [address] [address] Consulting Physician Medical Oncology 07/18/22 documented as of this encounter
--- OUTSIDE RECORDS SUMMARY | 2024-12-02 20:02 | XMS_ITS | Clinical Summary ---
Author Organization [facility] Address [address] [place] [address] Care Team Providers Care Pharmaceutical Process Engineer Name Role Phone Krish Chapman MD Unavailable [phone] Arron Cueva MD Primary Care Provider [phone] Allergies Active Allergy Reactions Criticality Noted Date Comments Peanut Oil Anaphylaxis High 11/06/2021 Unknown type of nut. In ICU. Did not follow-up with culture media laboratory assistant. Penicillins Anaphylaxis High 04/25/2013 Tree Nuts Angioedema High 11/06/2021 Unknown type of nut. In ICU. Did not follow-up with culture media laboratory assistant. Medications * This document contains information received from the source organization and may not represent a complete record from that organization. losartan (Cozaar) 100 MG tablet Take 1 tablet (100 mg) by mouth daily. 01/10/20 21 Active metoprolol succinate XL (Toprol-XL) 50 MG 24 hr tablet Take 1 tablet (50 mg) by mouth daily. 01/10/20 21 Active rosuvastatin (Crestor) 20 MG tablet Take 1 tablet (20 mg) by mouth daily. 10/09/19 22 Active loratadine (Claritin) 10 MG tablet Take 1 tablet (10 mg) by mouth daily. 09/21/19 23 Active fenofibrate (Tricor) 48 MG tablet Take 1 tablet (48 mg) by mouth daily. Active nystatin (Mycostatin) ointment Apply 1 Application topically if needed. 12/31/19 23 Active Lantus SoloStar 100 UNIT/ML injection pen Inject 18 Units under the skin at night as needed for high blood sugar. 05/01/20 23 Active metFORMIN XR (Glucophage-XR) 500 MG 24 hr tablet Take 2 tablets (1,000 mg) by mouth 1 (one) time each day with dinner. 05/14/19 24 Active dapagliflozin (Farxiga) 10 MG tablet Take 1 tablet (10 mg) by mouth daily. Active furosemide (Lasix) 20 MG tablet 10/13/19 Active gabapentin (Neurontin) 100 MG capsule 10/21/19 24 Active Mounjaro 2.5 MG/0.5ML solution pen-injector solution pen-injector 02/10/20 Active OneTouch Ultra test strip 01/14/20 24 Active Lancets (OneTouch Delica Plus [id number]) misc 01/14/20 24 Active hydrOXYzine HCl (Atarax) 25 MG tablet Take 1-2 tablets every 6 hours as needed for itching. 60 tablet 3 05/24/19 25 Active ondansetron ODT (Zofran-ODT) 4 MG disintegrating tablet Take 1 tablet (4 mg) by mouth every 6 (six) hours if needed for nausea or vomiting. 20 tablet 05/24/19 25 Active betamethasone dipropionate 0.05 % EX cream Apply to areas with itchy rash two times per day. 135 g 2 05/24/19 25 Active ergocalciferol (Vitamin D-2) 1.25 MG (87687 UT) capsule Take 1 capsule (50,000 Units) by mouth 1 (one) time per week. Take for 8 weeks. 8 capsule 07/05/19 25 Active Additional Information Patient not taking.Reported on 11/08/2024 cholecalciferol (Vitamin D-3) 25 MCG (1000 UT) tablet Take 1 tablet (1,000 Units) by mouth daily. Start after week doses are completed. 30 tablet 3 08/31/19 25 Active albuterol 108 (90 Base) MCG/ACT inhaler Inhale 2 puffs every 6 hours as needed for wheezing or shortness of breath. 1 each 2 09/28/19 Active Active Problems Problem Noted Date Diagnosed Date Second hand smoke exposure 04/05/2024 Other specified disorders of eustachian tube, bi lateral 03/08/2024 Malignant neoplasm of upper lobe, left bronchus or lung 02/23/2024 Type 2 diabetes mellitus with hyperglycemia 01/10 Other fatigue 01/12/2024 Other dysphagia 01/07/2024 Myringotomy tube(s) status 11/02/2023 Pain in thoracic spine 10/21/2023 Obstructive sleep apnea (adult) (pediatric) 09/09 Other atopic dermatitis 09/09/2023 Rash and other nonspecific skin eruption 024 Presbyopia 07/13/2023 On antineoplastic chemotherapy 03/10/2023 COVID-19 primary vaccine series not completed Flu vaccine need 01/28/2023 Severe obesity (BMI 35.0-39.9) with comorbidity 01/01/2023 Non-small cell lung cancer (NSCLC) 09/11/2022 Malignant neoplasm metastatic to left adrenal gl and 07/31/2022 Diabetes 11/05/2021 Overview (11/07/2021): Sliding Scale Insulin for glycemic control Resume home regimen as appropriate COPD (chronic obstructive pulmonary disease) Overview (11/07/2021): Will continue routine scheduled and PRN bronchodilator therapy. Hypertension 11/05/2021 Overview (11/07/2021): Home med: losartan 100mg daily Holding in setting of recent hypotension High cholesterol 11/05/2021 Overview (11/07/2021): Resume home meds as appropriate Class 1 obesity due to exces s calories with body mass index (BMI) of 31.0 to 31.9 in adult 11/05/2021 Overview (11/07/2021): BMI: 34.84 on admission Complicates all aspects of care Malignant neoplasm of upper lobe of left lung Overview (11/08/2021): 11/05: s/p bronchoscopy, left robotic diagnostic wedge resection, left lower lobe wedge resection, thoracotomy with left upper lobectomy, robotic mediastinal lymph node dissection Left CT removed 11/07 - follow up CXR stable Pathology pending pulm toilet Tobacco use disorder 10/02/2021 Overview (11/08/2021): Smoking cessation and education recommended Complicates all aspects of care Resolved Problems Problem Noted Date Diagnosed Date Resolved Date Allergies 01/12/2024 03/04/2024 Arthritis 01/12/2024 03/04/2024 Asthma 01/12/2024 03/04/2024 Diverticulosis of intestine, part unspecified, without perforation or abscess without bleeding 01/12/2024 03/04/2024 Overview (01/12/2024): Diverticulosis Esophageal obstruction 01/12/202403/04 Overview (01/12/2024): Schatzki's ring History of lung cancer 01/12/202403/04 Overview (01/12/2024): left partial lobectomy Lung trouble 01/12/2024 03/04/2024 Personal history of other di seases of the circulatory system 01/12/2024 03/04/2024 Overview (01/12/2024): History of cardiac disorder Personal history of other di seases of the digestive system 01/12/2024 03/04/2024 Overview (01/12/2024): History of hemorrhoids Personal history of urinary calculi 01/12/2024 03/04/2024 Overview (01/12/2024): Personal history of renal calculi PONV (postoperative nausea and vomiting) 01/12/2024 03/04/2024 Sinus problem 01/12/2024 03/04/2024 Abnormal weight loss 01/07/2024 025 Other malaise 01/07/2024 05/24/2024 Vomiting, unspecified 01/07/20242024 Other nonspecific abnormal f inding of lung field 11/30/2023 05/24/2024 Otalgia, right ear 11/02/2023 Impacted cerumen, right ear 11/02/2023 05/24/2024 Unspecified disorder of right ear 11/02/2023 05/24/2024 Dorsalgia, unspecified 10/21/202305/24 Acute pancreatitis 10/07/2023 Calculus of gallbladder with chronic cholecystitis without obstruction 10/07/20232024 Malignant neoplasm of unspec ified part of left bronchus or lung 10/03/2023 05/24/2024 Type 2 diabetes mellitus wit hout complications 10/03/2023 05/24/2024 Gallstone pancreatitis 10/02/202303/04 Cholelithiasis 10/02/2023 05/24/2024 Panlobular emphysema 10/01/2023 025 Generalized abdominal pain 09/01/2023 0 05/24/2024 Diarrhea, unspecified 08/20/20232024 Other constipation 07/01/2023 Sleep trouble 06/05/2023 03/04/2024 Second hand smoke exposure 04/24/2023 1 Lobar pneumonia, unspecified organism 04/16/2023 05/24/2024 Acute respiratory distress 04/14/2023 0 05/24/2024 Precordial pain 04/14/2023 05/24/2024 Second hand smoke exposure 03/10/2023 1 Adrenal mass 12/09/2022 03/04/2024 Clostridium difficile colitis 10/31/2022 01/28/2023 Sepsis 10/30/2022 01/28/2023 Second hand smoke exposure 09/26/2022 0 01/28/2023 Dysphonia 11/07/2021 01/28/2023 Overview (11/07/2021): ENT consulted Passed bedside swallow eval Follow up in ENT clinic in 3-4 weeks Left lower lobe pulmonary nodule 11/05/2021 07/31/2022 Overview (11/07/2021): 11/05: s/p bronchoscopy, left robotic diagnostic wedge resection, left lower lobe wedge resection, thoracotomy with left upper lobectomy, robotic mediastinal lymph node dissection Pathology pending Post-op pain 11/05/2021 03/10/2023 Overview (11/07/2021): Multimodal pain control Acute postoperative respiratory failure 11/05/2021 07/31/2022 Overview (11/07/2021): Hypercarbic in PACU Attempted BiPAP but then placed on HFNC ABG improved, now on regular NC Improving Second hand smoke exposure 10/02/2021 0 07/31/2022 Abnormal stress echo 02/18/2019 12/03/2022 024 Overview (12/03/2022): Added automatically from request for surgery [id number] Hemorrhage of anus and rectum 04/25/2013 12/03/2022 01/28/2023 Heartburn 04/25/2013 12/03/2022 01/28/2023 GERD (gastroesophageal reflux disease) 04/25/201303/04/2024 Encounters Date Type Department Care Team Description 11/10/2024 Social Work Psych Oncology [address] [place] [address] Kim Dawkins 11/09/2024 Orders Only [facility] [address] [phone] Krish Romo RN Non-small cell cancer of left lung (CMS/HCC) (Primary Dx) 11/09/2024 Orders Only [facility] [address] [phone] Krish Romo, RN Malignant neoplasm of upper lobe of left lung (CMS/HCC) (Primary Dx) 11/08/2024 12:19 PM EDT - 11/08/2024 11:59 PM EDT Hospital Encounter [facility] [address] [place] [phone] Non-small cell cancer of left lung (CMS/HCC) (Primary Dx) Discharge Disposition: Home or Self Care 11/08/2024 11:40 AM EDT Office Visit [facility] [address] [phone] Krish Chapman MD Uncontrolled type 2 diabetes mellitus with hyperglycemia (CMS/HCC) (Primary Dx); Non-small cell cancer of left lung (CMS/HCC); Hyperlipemia, idiopathic familial; Tachycardia; Severe obesity (BMI 35.0-39.9) with comorbidity (CMS/HCC); Malignant neoplasm metastatic to left adrenal gland (CMS/HCC); On antineoplastic chemotherapy 11/08/2024 11:15 AM EDT Clinical Support [facility] [address] [phone] Non-small cell cancer of left lung (CMS/HCC); Uncontrolled type 2 diabetes mellitus with hyperglycemia (CMS/HCC); Hyperlipemia, idiopathic familial; Tachycardia 11/08/2024 9:05 AM EDT - 11/08/2024 12:18 PM EDT Hospital Encounter [facility] [address] [place] [phone] Non-small cell cancer of left lung (CMS/HCC) Discharge Disposition: Home or Self Care 11/08/2024 Travel 09/27/2024 11:19 AM EDT - 09/27/2024 11:59 PM EDT Hospital Encounter [facility] [address] [place] [phone] Non-small cell cancer of left lung (CMS/HCC) (Primary Dx) Discharge Disposition: Home or Self Care 09/27/2024 11:00 AM EDT Office Visit [facility] [address] [phone] Jo Ann Pagan APRN Non-small cell cancer of left lung (CMS/HCC) (Primary Dx); Itching due to drug; Other fatigue; Dyspnea on exertion 09/27/2024 10:45 AM EDT Clinical Support [facility] [address] [phone] Non-small cell cancer of left lung (CMS/HCC) 09/27/2024 Social Work Psych Oncology [address] [place] [phone] Jackie Dunn 09/27/2024 Travel from Last 3 Months Immunizations Immunization Administration Dates Next Due Influenza, injectable, quadrivalent, preservativ e free 03/09/2020 Pneumococcal 20-rianna Conj Vaccine 12/30/2022 TD (adult), 2 Lf tetanus tox oid, preservative free, adsorbed 02/16/1996 Tdap 12/30/2022 Family History Medical History Relation Name Comments Diabetes Father Hypertension Father Kidney disease Father Diabetes Mother Kidney disease Mother Anesthesia problems Neg Hx Malig Hyperthermia Neg Hx Relation Name Status Comments Father Mother Social History Tobacco Use Types Packs/Day Years [...] place to sleep or slept in a senior living (including now)? No 10/07/2023 PHQ-9 Answer Date [...] drink first t franny in the morning (EYE-SECURITY SERVICES MANAGER) to steady your nerves or to get [...] Orientation Straight 12/08/2022 10 :51 AM EDT Last Filed Vital Signs Vital Sign Reading [...] Mass Index 31.4 11/08/2024 12:20 PM EDT Plan of Treatment Upcoming Encounters Date Type Department Care Team (Late st Contact Info) Description 12/20/2024 9:20 AM EDT Appointment [facility] [address] [place] [address] 12/20/2024 10:00 AM EDT Clinical Support [facility] [address] [phone] 12/20/2024 10:20 AM EDT Office Visit [facility] [address] [phone] Krish Chapman MD [address] [phone] 12/20/2024 11:00 AM EDT Appointment [facility] [address] [place] [address] Health Maintenance Due Date Last Done Comments Dental Oral Exam 1966 Dental Prophylaxis 1966 Dental X-Ray: Bitewings 1966 Dental X-Ray: Full Mouth 1966 [facility]-/Child/Adol SDOH Screenings 1966 [id number] Vaccine (#1) 09/07/1971 Diabetes: Dental Exam 1976 [facility]- SDOH Screenings 1984 [facility]-Adult SDOH Screenings 1984 [facility]-Hepatitis B Vaccines (1 of 3 - 19+ 3-dose series) 1985 [facility]-Zoster Vaccines (1 of 2) 1985 CT Colonography 09/07/2011 FIT-DNA 09/07/2011 FIT 09/07/2011 FOBT 09/07/2011 Sigmoidoscopy 09/07/2011 [facility]-Influenza Vaccine (#1) 2025 03/03/2023, [facility]-Diabetes: Hemoglobin A1C 02/07/202505/2024, 04/19/2024, 10/31/2022, Additional history exists [facility]-Depression Screening 04/19/2025 04/19/2024, 04/10 Colonoscopy 08/27/2032 08/27/2022 [facility]-Colorectal Cancer Screening 08/27/2032 [facility]-DTaP,Tdap,and Td Vaccines (2 - Td or Tdap) 12/30/2032 12/30/2022, 02/16/1996 [facility]-Pneumococcal Vaccine: 50+ Years Completed 12/30/2022 [facility]-HIV Screening Completed 10/02/2023 [facility]-Hepatitis C Screening Completed 10/02/2023 [facility]-Obesity Intervention Completed 025, 04/19/2024, 11/24/2023, Additional history exists HPV Vaccines Aged Out No longer eligi ble based on patient's age to complete this topic [facility]-HIB Vaccines Aged Out No longer e ligible based on patient's age to complete this topic [facility]-Hepatitis A Vaccines Aged Out No longer eligible based on patient's age to complete this topic [facility]-IPV Vaccines Aged Out No longer e ligible based on patient's age to complete this topic [facility]-Rotavirus Vaccines Aged Out No lo nger eligible based on patient's age to complete this topic Medical Devices Implanted Type Area Model Maker Apprentice Device Identifier Shelf Expiration Date Model / Serial / Lot Chastity [employer]ong - [id number] - [id number] Implanted:Qty : 1 on 12/19/2021 by Becki Rogel MD at [facility] Implant N/A: Vocal [id number] 10/21/2023 [id number] / [id number] / [id number] Port [employer] 8fr - [id number] Implanted:Qty : 1 on 12/08/2022 by Kristin Rodriguez MD at [facility] [id number] / / Procedures Procedure Name Priority Date/Time Associated Diagnosis Comments HEMOGLOBIN A1C Routine 11/08/2024 11:03 AM EDT Uncontrolled type 2 diabetes mellitus with hyperglycemia (CMS/HCC) Hyperlipemia, idiopathic familial Tachycardia LIPID PROFILE, PLASMA Routine 11/08/2024 11:03 AM EDT Uncontrolled type 2 diabetes mellitus with hyperglycemia (CMS/HCC) Hyperlipemia, idiopathic familial Tachycardia TSH REFLEX FT4 Routine 11/08/2024 11:03 AM EDT Non-small cell cancer of left lung (CMS/HCC) COMPREHENSIVE METABOLIC PANEL, PLASMA Routine 11/08/2024 11:03 AM EDT Non-small cell cancer of left lung (CMS/HCC) CBC WITH AUTO DIFFERENTIAL Routine 11/08/2024 11:03 AM EDT Non-small cell cancer of left lung (CMS/HCC) CT ABDOMEN W IV CONTRAST Routine 11/08/2024 9:49 AM EDT Non-small cell cancer of left lung (CMS/HCC) CT CHEST W IV CONTRAST Routine 9:49 AM EDT Non-small cell cancer of left lung (CMS/HCC) POCT CREATININE ISTAT UNSOLICITED RESULTS Routine 11/08/2024 9:36 AM EDT CBC WITH AUTO DIFFERENTIAL Routine 09/27/2024 10:12 AM EDT Non-small cell cancer of left lung (CMS/HCC) COMPREHENSIVE METABOLIC PANEL, PLASMA Routine 09/27/2024 10:12 AM EDT Non-small cell cancer of left lung (CMS/HCC) TSH REFLEX FT4 Routine 09/27/2024 10:12 AM EDT Non-small cell cancer of left lung (CMS/HCC) HEPATITIS C ANTIBODY - ED W/REFLEX TO HCV QUANT PCR STAT 10/02/2023 10:15 AM EDT ED HIV 1/2 ANTIBODY/ANTIGEN SCREEN WITH REFLEX TO HIV I/II DIFFERENTIATION STAT 10/02/2023 10:15 AM EDT COLONOSCOPY Routine 08/27/2022 3:19 PM EDT Malignant neoplasm of upper lobe of left lung (CMS/HCC) from Last 3 Months or Most Recently Relevant to Health Maintenance Results * TSH reflex FT4 (11/08/2024 11:03 AM EDT) Only the most recent of2 resultswithin the time period is included. Pathologist [facility] Thyroid Stimulating Hormone, Plasma 3.90 0.40 - 4.20 uIU/mL 11/08/2024 12:02 PM EDT [facility] Blood Blood sample taken from central line / Unknown (Port) Long-term Catheter / Unknown 11/08/2024 11:03 AM EDT 11/08/2024 11:26 AM EDT us Krish Chapman MD LAB BLOOD ORDERABLES Final Res ult [facility] [address] [place] [address] * (ABNORMAL) CBC and differential (11/08/2024 11:03 AM EDT) Only the most recent of2 resultswithin the time period is included. Pathologist [facility] WBC Count 8.96 3.70 - 10.30 10*3/uL LAB HEMATOLOGY METHOD 11/08/2024 11:37 AM EDT [facility] RBC Count 4.70 4.60 - 6.10 10*6/uL LAB HEMATOLOGY METHOD 11/08/2024 11:37 AM EDT [facility] HGB 14.3 13.7 - 17.5 g/dL LAB HEMATOLOGY METHOD 11/08/2024 11:37 AM EDT [facility] HCT 42.6 40.0 - 51.0 % LAB HEMATOLOGY METHOD 11/08/2024 11:37 AM EDT [facility] Platelet Count 124(L) 155 - 369 10*3/uL LAB HEMATOLOGY METHOD 11/08/2024 11:37 AM EDT [facility] MCV 91 79 - 98 fL LAB HEMATOLOGY METHOD 11/08/2024 11:37 AM EDT [facility] MCH 30.4 26.0 - 32.0 pg LAB HEMATOLOGY METHOD 11/08/2024 11:37 AM EDT [facility] MCHC 33.6 30.7 - 35.5 g/dL LAB HEMATOLOGY METHOD 11/08/2024 11:37 AM EDT [facility] RDW 13.2 11.5 - 14.5 % LAB HEMATOLOGY METHOD 11/08/2024 11:37 AM EDT [facility] MPV 10.7 8.8 - 12.5 fL LAB HEMATOLOGY METHOD 11/08/2024 11:37 AM EDT [facility] nRBC 0.0 <=0.0 per 100 WBCs LAB HEMATOLOGY METHOD 11/08/2024 11:37 AM EDT [facility] Differential Type Automated LAB HEMATOLOGY METHOD 11/08/2024 11:37 AM EDT [facility] Neutrophils % 57 % LAB HEMATOLOGY METHOD 11/08/2024 11:37 AM EDT [facility] Lymphocytes % 33 % LAB HEMATOLOGY METHOD 11/08/2024 11:37 AM EDT [facility] Monocytes % 8 % LAB HEMATOLOGY METHOD 11/08/2024 11:37 AM EDT [facility] Eosinophils % 2 % LAB HEMATOLOGY METHOD 11/08/2024 11:37 AM EDT [facility] Basophils % 0 % LAB HEMATOLOGY METHOD 11/08/2024 11:37 AM EDT [facility] Immature Granulocytes % 0 % LAB HEMATOLOGY METHOD 11/08/2024 11:37 AM EDT [facility] Neutrophils Absolute 5.11 1.60 - 6.10 10*3/uL LAB HEMATOLOGY METHOD 11/08/2024 11:37 AM EDT [facility] Lymphocytes Absolute 2.96 1.20 - 3.90 10*3/uL LAB HEMATOLOGY METHOD 11/08/2024 11:37 AM EDT [facility] Monocytes Absolute 0.67 0.30 - 0.90 10*3/uL LAB HEMATOLOGY METHOD 11/08/2024 11:37 AM EDT [facility] Eosinophils Absolute 0.14 0.00 - 0.50 10*3/uL LAB HEMATOLOGY METHOD 11/08/2024 11:37 AM EDT [facility] Basophils Absolute 0.04 0.00 - 0.10 10*3/uL LAB HEMATOLOGY METHOD 11/08/2024 11:37 AM EDT [facility] Immature Granulocytes Absolute 0.04 0.00 - 0.06 10*3/uL LAB HEMATOLOGY METHOD 11/08/2024 11:37 AM EDT [facility] Blood Blood sample taken from central line / Unknown (Port) Long-term Catheter / Unknown 11/08/2024 11:03 AM EDT 11/08/2024 11:28 AM EDT Narrative [facility] - 11/08/2024 11:37 AM EDT Therapeutic decision making should be based on absolute values, rather than percentages. us Krish Chapman MD LAB BLOOD ORDERABLES Final Res ult Performing Organization Address City/[facility]/ZIP Co de Phone Number [facility] [address] [place] [address] * (ABNORMAL) Hemoglobin A1c (11/08/2024 11:03 AM EDT) Hemoglobin A1c 8.3(H) <5.7 % 11/08/2024 1:55 PM EDT [facility] Blood Venous blood specimen / Unknown Venipuncture / Unknown 11/08/2024 11:03 AM EDT 11/08/2024 11:28 AM EDT Narrative [facility] - 11/08/2024 1:55 PM EDT HA1C Interpretive Data: Diagnosis of Diabetes: Diabetic > or = 6.5% Pre-diabetic 5.7 to 6.4% Non-diabetic < or = 5.6% Glycemic Targets for Type I and Type II Diabetics: Non- Adults <7.0% Adults <6.0% Children and Adolescents <7.5% Source: [place] [employer]. Standards of medical care in diabetes,2017. Diabetes Care.2017:40 (suppl 1):S1-S135. us Pippa Pollack APRN LAB BLOOD ORDERABLES Final Result Performing Organization Address City/[facility]/ZIP Co de Phone Number [facility] [address] [place] [address] * (ABNORMAL) Lipid Profile, Plasma (11/08/2024 11:03 AM EDT) Cholesterol, Plasma 113 <200 mg/dL 11/08/2024 12:02 PM EDT [facility] Comment: Cholesterol Reference Range (age >17 years): Desirable <200 mg/dL Borderline 200 to 239 mg/dL Undesirable >239 mg/dL HDL 30(L) >=40 mg/dL 11/08/2024 12:02 PM EDT [facility] Comment: HDL Cholesterol Reference Ranges (age >17 years): Female, acceptable > or = 50 mg/dL Male, acceptable > or = 40 mg/dL Triglycerides, Plasma 204(H) <150 mg/dL 11/08/2024 12:02 PM EDT [facility] Comment: Triglyceride Reference Range (age >17 years): Desirable: <150 mg/dL Borderline high: 150 to 199 mg/dL High: 200 to 499 mg/dL Very high: >499 mg/dL Increased risk of pancreatitis: >1000 mg/dL Cholesterol/HDL Ratio 4 11/08/2024 12:02 PM EDT [facility] LDL, Calculated 50 <100 mg/dL 12:02 PM EDT [facility] Comment: LDL Cholesterol Reference Range [...] 12 hours? No 11/08/2024 12:02 PM EDT [facility] Blood Blood sample taken from central line / Unknown (Port) Long-term Catheter / Unknown 11/08/2024 11:03 AM EDT 11/08/2024 11:26 AM EDT Pippa Pollack APRN LAB BLOOD ORDERABLES Final Result [facility] [address] [place] [address] * (ABNORMAL) Comprehensive metabolic panel (11/08/2024 11:03 AM EDT) Only the most recent of2 resultswithin the time period is included. Glucose, Plasma 230(H) 74 - 99 mg/dL 11/08/2024 12:02 PM EDT [facility] BUN, Plasma 11 7 - 21 mg/dL 11/08/2024 12:02 PM EDT [facility] Creatinine, Plasma 0.74 0.70 - 1.20 mg/dL 11/08/2024 12:02 PM EDT [facility] BUN/Creatinine Ratio 15 11/08/2024 12:02 PM EDT [facility] Sodium, Plasma 139 136 - 145 mmol/L 11/08/2024 12:02 PM EDT [facility] Potassium, Plasma 4.2 3.6 - 4.9 mmol/L 11/08/2024 12:02 PM EDT [facility] Chloride, Plasma 103 97 - 107 mmol/L 11/08/2024 12:02 PM EDT [facility] CO2, Plasma 26 22 - 29 mmol/L 11/08/2024 12:02 PM EDT [facility] Anion Gap 10 6 - 16 mmol/L 11/08/2024 12:02 PM EDT [facility] Total Calcium, Plasma 9.4 8.9 - 10.2 mg/dL 11/08/2024 12:02 PM EDT [facility] Total Protein 6.7 6.3 - 7.9 g/dL 11/08/2024 12:02 PM EDT [facility] Albumin, Plasma 4.1 3.5 - 5.2 g/dL 11/08/2024 12:02 PM EDT [facility] AST, Plasma 20 10 - 50 U/L 11/08/2024 12:02 PM EDT [facility] ALT, Plasma 22 10 - 50 U/L 11/08/2024 12:02 PM EDT [facility] Alkaline Phosphatase, Plasma 103 40 - 115 U/L 11/08/2024 12:02 PM EDT [facility] Total Bilirubin, Plasma 0.2 0.2 - 1.1 mg/dL 11/08/2024 12:02 PM EDT [facility] eGFRcr 105.0 mL/min/1.7 3m*2 11/08/2024 12:02 PM EDT [facility] Comment:Reported eGFRcr in m L/min/1.73m2 is based the CKD-EPI 2020 equation that does not use a race coefficient. Blood Blood sample taken from central line / Unknown (Port) Long-term Catheter / Unknown 11/08/2024 11:03 AM EDT 11/08/2024 11:26 AM EDT us Krish Chapman MD LAB BLOOD ORDERABLES Final Res ult [facility] [address] [place] [address] * CT Abdomen w IV Contrast (11/08/2024 [...] Total DLP (Dose-Length Product): 637.29 mGy.cm (accession [id number]), 637.29 mGy.cm (accession [id number]). Please note: The reported value represents the [...] Total DLP (Dose-Length Product): 637.29 mGy.cm (accession [id number]),637.29 mGy.cm (accession [id number]). Please note: The reported valuerepresents the total [...] signing this report, I, the attending physician, shelleyat I have personally reviewed the images/data for [...] Total DLP (Dose-Length Product): 637.29 mGy.cm (accession [id number]), 637.29 mGy.cm (accession [id number]). Please note: The reported value represents the [...] Total DLP (Dose-Length Product): 637.29 mGy.cm (accession [id number]),637.29 mGy.cm (accession [id number]). Please note: The reported valuerepresents the total [...] signing this report, I, the attending physician, attestthat I have personally reviewed the images/data for the aboveexamination(s) and agree with the final edited report. Drafted by Izabela Williamson MD on 11/08/2024 10:42 AM Final report signed by Jim Ball MD on 11/08/2024 12:19 PM Krish Chapman MD IMG CT PROCEDURES Final Result * POCT creatinine (11/08/2024 9:36 AM EDT) Creatinine, Point of Care 0.7 0.7 - 1.2 mg/dL 11/08/2024 9:40 AM EDT [facility] POCT eGFR 107 mL/min/1. 73m*2 11/08/2024 9:40 AM EDT [facility] Hospice Care Transitions Coordinator ID Myranda Collado 11/08/2024 9:40 AM EDT HEALTHCARE LAB Device ID [id number] 11/08/2024 9:40 AM EDT [facility] Comment 11/08/2024 9:40 AM EDT [facility] Comment:Testing performed on i-STAT at the point of care. Reported eGFRcr in mL/min/1.73m2 is based the CKD-EPI 2020 equation that does not use a race coefficient. Blood Venous blood specimen / Unknown 11/08/2024 9:36 AM EDT 11/08/2024 9:40 AM EDT Generic Provider Poct LAB POINT OF CARE TEST DOCKED DEVICE UNSOLICITED RESULTS Final Result [facility] [address] LAB [address] [place] [address] * ED HIV 1/2 Antibody/Antigen Screen w/Reflex to HIV 1/2 Differentiation (10/02/2023 10:15 AM EDT) HIV 1 & 2 Antibody/Antigen Screen Non Reactive Non Reactive 10/02/2023 10:55 AM EDT [facility] Comment:Screening for HIV 1 & 2 antibodies, and P24 antigen is NONREACTIVE. No confirmatory testing is required. Blood Venous blood specimen / Unknown Venipuncture / Unknown 10/02/2023 10:15 AM EDT 10/02/2023 10:21 AM EDT us Naina Moreau MD LAB BLOOD ORDERABLES Final Resul t Performing Organization Address City/[facility] Co de Phone Number [facility] [address] [place] [address] * Hepatitis C Antibody - ED (10/02/2023 10:15 AM EDT) Hepatitis C Antibody Negative Negative 10/02/2023 10:51 AM EDT [facility] Blood Venous blood specimen / Unknown Venipuncture / Unknown 10/02/2023 10:15 AM EDT 10/02/2023 10:21 AM EDT Naina Moreau MD LAB BLOOD ORDERABLES Final Resul t Performing Organization Address [facility] Co de Phone Number [facility] [address] [place] [address] * Colonoscopy (08/27/2022 3:19 PM EDT) Anatomical Region Laterality Modality Endoscopy Narrative 08/27/2022 4:02 PM EDT Table formatting from the original result was not included. Impression Two sessile polyps measuring from 2 mm up to 5 mm in the descending colon; completely removed en bloc by cold snare and retrieved larger polyp specimen Multiple small and large diverticula throughout colon Otherwise normal colon Recommendation Other The patient will be observed post-procedure, until all discharge criteria met. Resume previous diet. Await pathology results. Consider repeat colonoscopy in 5 years for surveillance, based on comorbidities at that time Follow up with referring provider. Findings and recommendations discussed with patient Findings and recommendations to be conveyed to referring provider. Indication Metastatic adenocarcinoma of unknown primary Medications See anesthesia record for anesthesia administered medications. Staff Staff Role Tammy Fritz CRNA, OLEG Pang CRNA, CRNA, MD Proceduralist Vini Stout MD Anesthesiologist Faviola Wilkes MD Proceduralist Gene Rico Endo Nurse Sandra Sharma RN Endo Nurse Preprocedure A history and physical has been performed, and patient medication allergies have been reviewed. The patient's tolerance of previous anesthesia has been reviewed. The risks and benefits of the procedure and the sedation options and risks were discussed with the patient. All questions were answered and informed consent obtained. Details of the Procedure The patient underwent monitored anesthesia care, which was administered by an anesthesia professional. The patient's blood pressure, heart rate, level of consciousness, respirations and oxygen were monitored throughout the procedure. A digital rectal exam was performed. A perianal exam was performed. The scope was introduced through the anus and advanced to the terminal ileum. Retroflexion was performed in the rectum. The quality of bowel preparation was evaluated using the [place] Bowel Preparation Scale with scores of: right colon = 2, transverse colon = 2, left colon = 2. The total BBPS score was 6. Bowel prep was adequate. The patient's estimated blood loss was minimal (<5 mL). The procedure was not difficult. The patient tolerated the procedure well. There were no apparent complications. Attestation I was present for the entire procedure Events Procedure Events Event Event Time ENDO SCOPE IN TIME 08/27/2022 2:55 PM ENDO CECUM REACHED 08/27/2022 3:00 PM ENDO SCOPE OUT TIME 08/27/2022 3:17 PM Specimens ID Type Source Tests Collected by Time A : polyp Tissue Descending Colon SURGICAL PATHOLOGY EXAM Anderson Ricks MD 08/27/2022 1506 Findings Two sessile polyps measuring from 2 mm up to 5 mm in the descending colon; completely removed en bloc by cold snare and retrieved larger polyp specimen Multiple small and large diverticula throughout colon Otherwise normal colon Krish Chapman MD GI PROCEDURE ORDERABLES Final Result from Last 3 Months or Most Recently Relevant to Health Maintenance Insurance [employer] [facility] MEDICAID [facility] MEDICAID DENTAL Advance Directives * Full Code (Latest Code Status on File) Date Activated Date Inactivated Comments 10/02/2023 12:50 PM 10/08/2023 12:25 AM Question Answer Comments Patient has decision-making capacity? Yes * Full Code Date Activated Date Inactivated Comments 12/31/2022 1:04 PM 01/01/2023 6:08 PM Question Answer Comments Patient has decision-making capacity? Yes * Full Code Date Activated Date Inactivated Comments 10/31/2022 12:05 AM 11/01/2022 5:27 PM Question Answer Comments Patient has decision-making capacity? Yes * Full Code Date Activated Date Inactivated Comments 11/05/2021 1:43 PM 11/10/2021 4:35 PM Question Answer Comments Patient has decision-making capacity? Yes Care Teams Pharmaceutical Process Engineer Relationship Specialty Start Date End Date Arron Cueva MD [address] [place] [address] PCP - General Internal Medicine 11/03/22 Krish Chapman MD [address] [place] [phone] Consulting Physician Medical Oncology 07/18/22
--- OUTSIDE RECORDS SUMMARY | 2024-12-02 20:02 | XMS_ITS ---
Author Organization [facility] Address [address] [place] [address] Care Team Providers Care Air Pumper Name Role Phone Krish Chapman MD Unavailable [phone] Arron Cueva MD Primary Care Provider [phone] Active Problems * This document contains information received from the source organization and may not represent a complete record from that organization. Problem Noted Date Diagnosed Date Second hand [...] education recommended Complicates all aspects of care Current Treatment and Therapy Plans Pembrolizumab Every 42 Days* Plan Start Date:12/18/2022 Plan Provider:Krish Chapman MD Linked Problems Non-small cell cancer of lef t lung (CMS/HCC) Treatment Medications Current Day (Day 1 , Cycle 16 - Planned for 12/20/2024) Next Day (Day 1, Cycle 17 - Planned for 01/31/2025) pembrolizumab (Keytruda)pembrolizumab (Keytruda) IVPB No medications scheduled. No medications scheduled. Past Treatment and Therapy Plans Oncology Treatment Plan Name Start Date Discontinue Date Treatment Medications Discontinue Reason Plan Provider Cycles Pembrolizumab / Gemcitabine Weekly x 2 / CARBOplatin Weekly x 2 Every 21 Days 09/27/1912/19/2022 CARBOplatin (Paraplatin) IVPB (by AUC: GOG-COCKCROFT GAULT)gemcitabine (Gemzar)gemcitabine (Gemzar) IVPBpembrolizumab (Keytruda) IVPB Therapy Complete Krish hCapman MD 4 of 4 cycles started Pembrolizumab / Gemcitabine Weekly x 2 / CARBOplatin Weekly x 2 Every 21 Days 09/20/19 23 09/18/2022 CARBOplatin (Paraplatin)gemcita bine (Gemzar) Other (See Comments) Krish Chapman MD Treatment not started Gemcitabine Weekly x 2 / CARBOplatin Every 21 Days 09/24/1909/18/2022 CARBOplatin (Paraplatin)gemcita bine (Gemzar) Other (See Comments) Krish Chapman MD Treatment not started Lifetime Dose Tracking * Chemical Lifetime Dose Automatic Entry Manual Entr y Fluoro Time 1.1 minutes 1.1 minutes 0 minutes Air Kerma 21 mGy 21 mGy 0 mGy CTDIvol 189 mGy 189 mGy 0 mGy Air Kerma Area Product 654.04 Gym 654.04 Gym 0 Gym Radiation (DLP) 894 mGy-cm 894 mGy-cm 0 mGy-cm Resolved Problems Problem Noted Date Diagnosed Date [...] (12/03/2022): Added automatically from request for surgery [id number] Hemorrhage of anus and rectum 04/25/2013 12/03/2022 01/28/2023 Heartburn 04/25/2013 12/03/2022 01/28/2023 GERD (gastroesophageal reflux disease) 04/25/201303/04/2024
--- OUTSIDE RECORDS SUMMARY | 2024-12-02 20:02 | XMS_ITS | Encounter Summary ---
Author Organization [facility] Address [address] [place] [id number] Care Team Providers Care Scouring Pads Supervisor Name Role Phone Yaya Cuevas MD Primary Care Provider [phone] Krish Chapman MD Unavailable [phone] Arron Cueva MD Primary Care Provider [phone] Reason for Visit * Reason Comments financial assistance Encounter Details Date Type Department Care Team ([facility] Contact Info) Description 11/27/2021 Social Work Pav [facility] [address] [place] [address] [place] [address] Social History Tobacco Use Types Packs/Day Years Used Date Smoking Tobacco: Former Cigarettes 1 35 0 11/05/1986 - 11/05/2021 Smokeless Tobacco: Former Alcohol Use Standard Drinks/Week Comments Not Currently 0 (1 standard drink = 0.6 oz pur e alcohol) PHQ-2 Answer Date Recorded Patient Health Questionnaire-2 Score 0 11/27/2021 Sex and Gender Information Value Date Recorded Sex Assigned at Male 12/08/2022 10:51 AM EDT Legal Sex Male 6:06 PM EDT Gender Identity Male 12/08/2022 10:51 AM EDT Sexual Orientation Straight 12/08/2022 10 :51 AM EDT COVID-19 Exposure Response Date Recorded In the last 10 days, have yo u been in contact with someone who was confirmed or suspected to have Coronavirus/COVID-19? No / Unsure 11/27/2021 8:51 AM EDT documented as of this encounter Functional Status * Over the past 2 weeks, how often have you been bothered by any of the following problems? Question Answer Date of Assessment Author Little interest or pleasure in doing things Not at all 11/27/2021 9:52 AM EDT Magaly Nunez Feeling down, depressed, or hopeless Not at all 11/27/2021 9:52 AM EDT Magaly Nunez Patient Health Questionnaire -2 Score 0 11/27/2021 9:52 AM EDT Magaly Nunez * Calculated C-SSRS Risk Score (Lifetime/Recent) Answer Date of Assessment Author No Risk Indicated 11/27/2021 9:52 AM EDT Magaly Nunez * Question Answer Date of Assessment Author 1. Wish to be (Past 1 Month) No 022 9:52 AM EDT Magaly Nunez 2. Non-Specific Active Suici nabila Thoughts (Past 1 Month) No 11/27/2021 9:52 AM EDT Carolina Nunez 6. Suicidal Behavior (Lifetime) No 9:52 AM EDT Magaly Nunez documented as of this encounter Miscellaneous Notes * Clinician Note - Montserrat Cerrato CSW - 11/27/2021 11:59 PM EDT SW met with pt and his in the room in response to a request for financial assistance. Pt reports pt has been unable to work recently due to his diagnosis/treatment and they have 7 in their household with only her income. SW committed to making a referral to [facility] Financial Navigator to help assess for what may be available resources for them. Pt also had short term disability paperworkthat needed to be completed by the physician. SW collected and provided the paperwork to the RN Michelle Holloway. No additional needs identified during this visit. Pt was provided with SW contact information should any additional needs/concerns arise. Update: paperwork received back from RN on 11/28 and emailed to pt as requested. DEON Vale, TONI [facility] documented in this encounter Plan of Treatment Upcoming Encounters Date Type Department Care Team (Late st Contact Info) Description 12/20/2024 9:20 AM EDT Appointment [facility] [place] [address] [place] [address] 12/20/2024 10:00 AM EDT Clinical Support Pav [facility] [address] [phone] 12/20/2024 10:20 AM EDT Office Visit Pav [facility] [address] [phone] Krish Chapman MD [address] [phone] 12/20/2024 11:00 AM EDT Appointment [facility] [address] [place] [phone] documented as of this encounter Visit Diagnoses Not on filedocumented in this encounter Additional Health Concerns Infection Onset Date Last Indicated Resolved Time C. difficile Rule-Out 10/31/2022 10/31/20222022 4:03 AM EDT C. difficile Comment:Pt tested negative for C-Diff 10/31/2022 10/31/2022 10/31/2022 6:27 PM E DT C. difficile Comment:Neg admit test and no diarrhea 11/01/2022 11/01/2022 12/31/2022 7:40 AM E DT Assessment Noted Time A fall risk assessment has been complete d for the patient 11/27/2021 9:52 AM EDT documented as of this encounter Care Teams Scouring Pads Supervisor Relationship Specialty Start Date End Date Yaya Cuevas MD [facility] [address] [place] [address] PCP - General 10/02/21 11/02/22 Arron Cueva MD [address] [place] [address] [address] [place] [address] PCP - General Internal Medicine 11/03/22 Krish Chapman MD [address] [phone] Consulting Physician Medical Oncology 07/18/22 documented as of this encounter
--- OUTSIDE RECORDS SUMMARY | 2024-12-02 20:02 | XMS_ITS | Clinical Summary ---
Author Organization [facility] Address [address] [place] [id number] Care Team Providers Care Social Insurance Administrator Name Role Phone Arron Cueva MD Primary Care Provider [phone] Allergies Active Allergy Reactions Criticality Noted Date Comments Penicillins Swelling 03/03/2019 Medications metFORMIN (GLUCOPHAGE) 500 MG tablet Take 500 mg by mouth Daily With Breakfast. Active metoprolol succinate XL (TOPROL-XL) 50 MG 24 hr tablet Take 50 mg by mouth Daily. Active pravastatin (PRAVACHOL) 40 MG tablet Take 40 mg by mouth Daily. Active omeprazole (priLOSEC) 40 MG capsule Take 40 mg by mouth Daily. Active umeclidinium-geogres anterol (ANORO ELLIPTA) 62.5-25 MCG/INH aerosol powder inhaler Inhale 1 puff Daily. Active losartan (COZAAR) 25 MG tablet Take 25 mg by mouth Daily. Active fenofibrate 160 MG tablet Take 160 mg by mouth Daily. Active loratadine (CLARITIN) 10 MG tablet Take 10 mg by mouth Daily. Active aspirin 81 MG EC tablet Take 81 mg by mouth Daily. Active Active Problems Problem Noted Date Diagnosed Date Abnormal stress echo 02/18/2019 Overview (02/18/2019): Added automatically from request for surgery [id number] Social History Tobacco Use Types Packs/Day Years Used Date Smoking Tobacco: Every Day Cigarettes Smokeless Tobacco: Never Alcohol Use Standard Drinks/Week Comments No 0 (1 standard drink = 0.6 oz pur e alcohol) AUDIT-C Answer Date Recorded Frequency of Alcohol Consumption Never 03/03/2019 Average Number of Drinks Not on file 019 Frequency of Binge Drinking Not on file 02/09 Abuse Screen Answer Date Recorded Unsafe at Home or Work/School Not on file Feels Threatened by Someone? Not on file 04/2023 Does Anyone Keep You from Co ntacting Others or Doint Things Outside the Home? Not on file 02/19/2023 Physical Sign of Abuse Present Not on file 1 Housing Stability Answer Date Recorded Current Living Arrangements Not on file 02/08 Potentially Unsafe Housing Conditions Not on hillary e 02/19/2023 Family and Community Support Answer Marko e Recorded Help with Day-to-Day Activities Not on file 02/19/2023 Lonely or Isolated Not on file 02/19/2023 Employment Answer Date Recorded Do you want help finding or keeping work or a lief b? Not on file 02/19/2023 Disabilities Answer Date Recorded Concentrating, Remembering, or Making Decisions Difficulty Not on file 02/19/2023 Doing Errands Independently Difficulty Not on fi le 02/19/2023 Education Answer Date Recorded Help with school or training? Not on file Preferred Language Not on file 02/19/2023 Sex and Gender Information Value Date Recorded Sex Assigned at Not on file Legal Sex Male 10:51 AM EDT Gender Identity Not on file Sexual Orientation Not on file Last Filed Vital Signs Vital Sign Reading Time Taken Comments Blood Pressure 132/103 03/03/2019 2:15 PM EDT post ambulation Pulse 79 03/03/2019 2:00 PM EDT Temperature 36.5 C (97.7 F) 03/03/2019 7:45 AM EDT Respiratory Rate 18 03/03/2019 11:4 5 AM EDT Oxygen Saturation 91% 03/03/2019 2:0 0 PM EDT Inhaled Oxygen Concentration - - Weight 104 kg (229 lb 11.2 oz) 03/03/2019 7:45 AM EDT Height 165.1 cm (5' 5 ) 03/03/2019 7:45 AM EDT Body Mass Index 38.22 03/03/2019 7:45 AM EDT Plan of Treatment Health Maintenance Due Date Last Done Comments ANNUAL PHYSICAL 1965 HEPATITIS C SCREENING 1965 TDAP/TD VACCINES (1 - Tdap) 1985 COLOGUARD 09/07/2011 COLON CANCER SCREENING 5 YEAR SIGMOIDOSCOPY 09/07/2011 COLONOSCOPY 09/07/2011 COLORECTAL CANCER SCREENING 09/07/2011 CT COLONOGRAPHY 09/07/2011 FECAL OCCULT BLOOD TEST 09/07/2011 FIT Testing (1 year) 09/07/2011 Pneumococcal Vaccine 50+ (1 of 1 - PCV) 2016 ZOSTER VACCINE (1 of 2) 2016 COVID-19 Vaccine (1 - 2023- season) 2024 INFLUENZA VACCINE 02/08/2025 Insurance PPO Care Teams Social Insurance Administrator Relationship Specialty Start Date End Date Arron Cueva MD [address] [facility] [address] [facility] [address] PCP - General Adolescent Medicine 03/03/19
--- OUTSIDE RECORDS SUMMARY | 2024-12-02 20:02 | XMS_ITS | Encounter Summary ---
Author Organization [facility] Address [address] [place] [address] Care Team Providers Care Adult Protective Caseworker Name Role Phone Krish Chapman MD Unavailable [phone] Arron Cueva MD Primary Care Provider [phone] Encounter Details Date Type Department Care Team (Latest Contact Info) Description 11/08/2024 Travel Social History Tobacco Use Types Packs/Day Years [...] drink first t franny in the morning (EYE-COMMUNICATION ANALYST) to steady your nerves or to get [...] No Risk Indicated 11/08/2024 10:24 AM EDT Ezekiel Bryanenix R * Question Answer Date of Assessment Author 1. Wish to be (Past 1 Month) No 025 10:24 AM EDT Negar Hoffmannx R 2. Non-Specific Active Suici nabila Thoughts (Past 1 Month) No 11/08/2024 10:24 AM EDT Belkys Hoffmann oenix R 6. Suicidal Behavior (Lifetime) No 10:24 AM EDT Negar Hoffmannx R documented as of this encounter Plan of Treatment Upcoming Encounters Date Type Department Care Team (Late st Contact Info) Description 12/20/2024 9:20 AM EDT Appointment [facility] [address], [address] [place] [phone] 12/20/2024 10:00 AM EDT Clinical Support [facility] [address] [phone] 12/20/2024 10:20 AM EDT Office Visit Pav [facility] [address] [phone] Krish Chapman MD [address] [phone] 12/20/2024 11:00 AM EDT Appointment [facility] [address] [place] [address] documented as of this encounter Visit Diagnoses Not on filedocumented in this encounter Additional Health Concerns Assessment Noted Time PHQ-9 Depression Total Score: 0 04/19/20 24 1:14 PM EST A fall risk assessment has been complete d for the patient 11/08/2024 12:20 PM EDT A Body Mass Index follow-up plan has been documented for the patient 07/06/2024 1:05 AM EST documented as of this encounter Care Teams Adult Protective Caseworker Relationship Specialty Start Date End Date Arron Cueva MD [address] [place] [address] PCP - General Internal Medicine 11/03/22 Krish Chapman MD [address] [place] [phone] Consulting Physician Medical Oncology 07/18/22 documented as of this encounter
--- OUTSIDE RECORDS SUMMARY | 2024-12-02 20:03 | XMS_ITS | Encounter Summary ---
Author Organization [facility] Address [address] [place] [address] Care Team Providers Care Rn Camp Name Role Phone Krish Chapman MD Unavailable [phone] Arron Cueva MD Primary Care Provider [phone] Reason for Visit * Reason Comments Resource Navigation Encounter Details Date Type Department Care Team (Late st Contact Info) Description 11/10/2024 Social Work Psych Oncology [address] [place] [address] Kim Dawkins Social History Tobacco Use Types Packs/Day Years [...] place to sleep or slept in a jail (including now)? No 10/07/2023 PHQ-9 Answer Date [...] drink first t franny in the morning (EYE-AUTOMATIC FABRIC CUTTER) to steady your nerves or to get [...] AM EDT documented as of this encounter Miscellaneous Notes * Progress Notes - Kim Dawkins - 11/10/2024 1:56 PM EDT Encounter Type: Phone Call Disease Status: Established Patient Clinic Location: [facility] Disease Type: Lung & Bronchus Intervention Level: 1 Units (1 unit = 15 minutes): 1 Narrative: UNDERCOLLAR BASTER reached out to pt to inform pt that UNDERCOLLAR BASTER unable to assist with bill as discussed in exam room. Pt did not answer. VM left with details of call and encouraged pt to call back at earliest convenience. No further needs identified. UNDERCOLLAR BASTER to remain available for any ongoing needs or support. Kim Dawkins, GENERAL ACTIVITIES THERAPIST, UNDERCOLLAR BASTER [facility] Psych[facility]Oncology Services documented in this encounter Plan of Treatment Upcoming Encounters Date Type Department Care Team ([facility] st Contact Info) Description 12/20/2024 9:20 AM EDT Appointment [facility] [address] [place] [address] 12/20/2024 10:00 AM EDT Clinical Support [facility] [address] [place] [phone] 12/20/2024 10:20 AM EDT Office Visit Pav [facility] [address] [place] [phone] Krish Chapman MD [address] [phone] 12/20/2024 11:00 AM EDT Appointment [facility] [address] [place] [address] documented as of this encounter Visit Diagnoses [...] documented as of this encounter Care Teams Rn Camp Relationship Specialty Start Date End Date Arron Cueva MD [address] [place] [address] PCP - General Internal Medicine 11/03/22 Krish Chapman MD [address] [phone] Consulting Physician Medical Oncology 07/18/22 documented as of this encounter
--- OUTSIDE RECORDS SUMMARY | 2024-12-02 20:03 | XMS_ITS | Encounter Summary ---
Author Organization [facility] Address [address] [place] [address] Care Team Providers Care Big Data Solutions Architect Name Role Phone Krish Chapman MD Unavailable [phone] Arron Cueva MD Primary Care Provider [phone] Reason for Referral * Imaging (Routine) - Authorized Specialty Diagnoses / Procedures Referred By Contac t Referred To Contact Radiology Diagnoses Non-small cell cancer of left lung (CMS/HCC) Procedures CT Abdomen w IV Contrast Krish Chapman MD [address] [address] Phone: tel: fax: Referral ID Status Reason Start Date Expiration Date V isits Requested Visits Authorized [id number] Authorized 11/09/2024 05/11/2026 1 1 * Imaging (Routine) - Authorized Specialty Diagnoses / Procedures Referred By Contac t Referred To Contact Radiology Diagnoses Non-small cell cancer of left lung (CMS/HCC) Procedures CT Chest w IV Contrast Krish Chapman MD [address] [address] Phone: tel: fax: Referral ID Status Reason Start Date Expiration Date V isits Requested Visits Authorized [id number] Authorized 11/09/2024 05/11/2026 1 1 Encounter Details Date Type Department Care Team (Late st Contact Info) Description 11/09/2024 Orders Only [facility] [address] [place] [address] Krish Romo, RN -[facility] AMB SERV ADMIN Non-small cell cancer of left lung (CMS/HCC) (Primary Dx) Social History Tobacco Use Types [...] place to sleep or slept in a [place] [facility] [place] (including now)? No 10/07/2023 PHQ-9 Answer Date [...] drink first t franny in the morning (EYE-TRUCK BENCH MECHANIC) to steady your nerves or to get rid of a hangover? 0 10/02/2023 CAGE Questionnaire Score 0 024 Utilities Answer Date Recorded In the past 12 months has th [employer], gas, oil, or water [employer] threatened to shut off services in your [...] Description 12/20/2024 9:20 AM EDT Appointment [facility] [address] [place] [address] 12/20/2024 10:00 AM EDT Clinical Support [facility] [address] [phone] 12/20/2024 10:20 AM EDT Office Visit [facility] [address] [phone] Krish Chapman MD [address] [phone] 12/20/2024 11:00 AM EDT Appointment [facility] [address] [place] [address] Scheduled Orders Name Type Priority Associated Diagnoses Orde r Schedule CT Chest w IV Contrast Imaging Routine Non-small cell cancer of left lung (CMS/HCC) Expected: 12/20/2024 (Approximate), Expires: 05/13/2026 CT Abdomen w IV Contrast Imaging Routine Non-small cell cancer of left lung (CMS/HCC) Expected: 12/20/2024 (Approximate), Expires: 05/13/2026 documented as of this encounter Visit Diagnoses Diagnosis Non-small cell cancer of left lung (CMS/HCC)- Primary documented in this encounter Additional Health Concerns Assessment Noted Time PHQ-9 Depression Total Score: 0 04/19/20 1:14 PM EST A fall risk assessment has been complete d for the patient 11/08/2024 12:20 PM EDT A Body Mass Index follow-up plan has been documented for the patient 07/06/2024 1:05 AM EST documented as of this encounter Care Teams Big Data Solutions Architect Relationship Specialty Start Date End Date Arron Cueva MD [address] [place] [address] PCP - General Internal Medicine 11/03/22 Krish Chapman MD [address] [place] [phone] Consulting Physician Medical Oncology 07/18/22 documented as of this encounter
--- OUTSIDE RECORDS SUMMARY | 2024-12-02 20:03 | XMS_ITS | Encounter Summary ---
Author Organization [facility] Address [address] [place] [address] Care Team Providers Care Egg Buyer Name Role Phone Krish Chapman MD Unavailable [phone] Arron Cueva MD Primary Care Provider [phone] Encounter Details Date Type Department Care Team (Late st Contact Info) Description 11/09/2024 Orders Only [facility] 800 [facility], [address] [place] [address] Krish Romo, RN [facility] AMB SERV ADMIN Malignant neoplasm of upper lobe of left lung (CMS/HCC) (Primary Dx) Social [...] place to sleep or slept in a fdc (including now)? 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 [place] [address] 12/20/2024 10:00 AM EDT Clinical Support [facility] 800 [facility], [address] [place] [phone] 12/20/2024 10:20 AM EDT Office Visit [facility] 800 [facility], [address] [place] [phone] Krish Chapman MD [address] [phone] 12/20/2024 11:00 AM EDT Appointment [facility] [address] [place] [address] Scheduled Orders Name Type Priority Associated Diagnoses Orde r Schedule CBC and Differential Lab Routine Malignant neoplasm of upper lobe of left lung (CMS/HCC) Expected: 12/20/2024 (Approximate), Expires: 05/13/2026 Comprehensive Metabolic Panel, Plasma Lab Routine Malignant neoplasm of upper lobe of left lung (CMS/HCC) Expected: 12/20/2024 (Approximate), Expires: 05/13/2026 TSH Reflex FT4 Lab Routine Malignant neoplasm of upper lobe of left lung (CMS/HCC) Expected: 12/20/2024 (Approximate), Expires: 05/13/2026 documented as of this encounter Visit Diagnoses Diagnosis Malignant neoplasm of upper lobe of left lung (CMS/HCC)- Primary documented in this encounter Additional Health Concerns Assessment Noted Time PHQ-9 Depression Total Score: 0 04/19/20 24 1:14 PM EST A fall risk assessment has been complete d for the patient 11/08/2024 12:20 PM EDT A Body Mass Index follow-up plan has been documented for the patient 07/06/2024 1:05 AM EST documented as of this encounter Care Teams Egg Buyer Relationship Specialty Start Date End Date Arron Cueva MD [address] [place] [address] PCP - General Internal Medicine 11/03/22 Krish Chapman MD [address] [place] [phone] Consulting Physician Medical Oncology 07/18/22 documented as of this encounter
--- NOTE | 2024-12-02 20:12 | HMH.EDGENADL ---
Discharge Plan Disposition Patient Disposition: Admitted Condition: Fair Clinical Impressions Clinical Impression: Acute kidney injury (nontraumatic), Acute hypotension Discharge ED Provider: Porfirio Harp General Adult HPI <SHARON Dejesus - Last Filed: 12/02/24 22:09> General Chief complaint: Weakness Stated complaint: LBP 60/40 Time Seen by Provider: 12/02/24 20:12 History of Present Illness HPI narrative: Patient presents for weakness. 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 Patient's states that she took his blood pressure when he got home and it was in the 70s. Patient does have a history of hypertension takes Lasix Janumet losartan metformin metoprolol and possibly a GLP-1. His has been pushing oral fluids but patient has had loose stool and feels terribly weak. He denies any chest pain fever chills hemoptysis hematochezia melena vomiting but does endorse nausea. Related Data Home Medications ?Medication ?Instructions ?Recorded ?Confirmed fenofibrate nanocrystallized 48 mg 48 mg PO DAILY Cholesterol 10/29/22 12/02/24 tablet loratadine 10 mg tablet 10 mg PO DAILY Allergy symptoms 10/29/22 12/02/24 losartan 100 mg tablet 100 mg PO DAILY High blood pressure 10/29/22 12/02/24 metoprolol succinate 50 mg 50 mg PO DAILY heart rate 10/29/22 12/02/24 tablet,extended release 24 hr rosuvastatin 20 mg tablet 20 mg PO HS Cholesterol 10/30/22 12/02/24 blood sugar diagnostic (Standout JobsTouch #10 ea 03/08/24 12/02/24 Ultra Test strips) lancets 33 gauge (Standout JobsTouch Delica #100 ea 03/08/24 12/02/24 Plus Lancet) metformin 500 mg tablet,extended 1,000 mg PO DAILY 03/08/24 12/02/24 release 24 hr semaglutide 1 mg/dose (4 mg/3 mL) 2.5 mg SQ WEEKLY 03/08/24 12/02/24 subcutaneous pen injector (Ozempic) tirzepatide 2.5 mg/0.5 mL 2.5 mg SQ QWEEK 03/08/24 12/02/24 subcutaneous pen injector (Mounjaro) albuterol sulfate 90 mcg/actuation 2 inh inhalation Q6HP PRN soa 12/02/24 12/02/24 aerosol inhaler (Ventolin HFA) cholecalciferol (vitamin D3) 25 25 mcg PO DAILY 12/02/24 12/02/24 mcg (1,000 unit) chewable tablet (Vitamin D3) dapagliflozin propanediol 10 mg 10 mg PO DAILY 12/02/24 12/02/24 tablet (Farxiga) gabapentin 100 mg tablet 100 mg PO HS 12/02/24 12/02/24 insulin glargine 100 unit/mL (3 60 unit SQ HS 12/02/24 12/02/24 mL) subcutaneous pen (Lantus Solostar U-100 Insulin) ondansetron HCl 4 mg/5 mL oral 4 mg PO Q6H PRN Nausea 12/02/24 12/02/24 solution Allergies Allergy/AdvReac Type Severity Reaction Status Date / Time nut - unspecified Allergy Severe Anaphylaxis Verified 12/02/24 23:06 penicillin G Allergy Severe Swelling Verified 03/08/24 10:06 of Lip/Tongue/Throat [facility] <SHARON Dejesus - Last Filed: 12/02/24 22:09> [facility] Disclaimer: The information contained in this section may have been updated after the patient was seen, as this information can be updated by other users. Medical History Impacted cerumen, left ear Mixed hearing loss Impacted cerumen, right ear Retained myringotomy tube in right ear Drainage from right ear Otalgia, right ear Surgical History History of tonsillectomy History of pneumonectomy History of throat surgery History of knee surgery History of hernia surgery History of ankle surgery History of cholecystectomy Social History Smoking Status: Current every day smoker tobacco type: cigarettes packs per day: 1 alcohol intake: never substance use type: denies use current occupational status: employed Travel in the last 8 weeks?: Inside the [place] household members: spouse housing: house current occupation: [employer] caffeine: Yes Have you lived/traveled outside [place] in past 30 days?: No Contact w/someone who lives/traveled outside [place] past 30 days?: No Exposure to someone with infectious disease in past 14 days?: No Do you have a fever (greater than 100.4 F or 38 C)?: No Have you tested positive for COVID-19?: No Exposed to someone with COVID-19 in past 14 days?: No Do you have a sore throat?: No Do you have a cough?: No Do you have any weakness?: No Do you have any diarrhea?: No Are you experiencing any unusual bleeding?: No Do you have any muscle aches/pain?: No Do you have any abdominal pain?: No Are you experiencing loss of taste or smell?: No Other Medical History Have you received the Flu Vaccine for this season: No Have you received the Pneumonia Vaccine: No <SHARON Dejesus - Last Filed: 12/02/24 22:09> ROS Obtained: Yes Systems reviewed as appropriate & no additional complaints except as documented Physical Exam <SHARON Dejesus - Last Filed: 12/02/24 22:09> General General appearance: alert and in no apparent distress Respiratory Respiratory exam: Present normal lung sounds bilaterally Cardiovascular Cardiovascular exam: Present regular rate Neurological Exam Neurological exam: Present alert and oriented X3 Medical Decision Making <SHARON Dejesus - Last Filed: 12/02/24 22:09> Medical Records Medical records reviewed: Yes I reviewed the patient's medical records. Screening: Per USPSTF and CDC recommendations, given the prevalence of disease in our region, it is our hospital?s policy to screen for HIV and viral Hepatitis for all patients aged 18 and over and those with ongoing risk factors. Herb Inquiry Pt receiving controlled substance: No Vital Signs: 12/02/24 19:44 12/02/24 22:45 Temperature 98.3 F 98.4 F Temperature Source Oral Oral Pulse Rate 83 Pulse Rate [Radial] 95 H Respiratory Rate 16 16 Blood Pressure 95/56 L Blood Pressure [Right Arm] 90/50 L Blood Pressure Mean [Right Arm] 63 Blood Pressure Position Sitting Blood Pressure Position [Right Arm] Sitting 02 Sat by Pulse Oximetry 99 Oxygen Delivery Method Room Air Room Air Lab Data Lab results reviewed: Yes I reviewed the patient's lab results. Lab Results 12/02/24 20:51: WBC 15.7 H, RBC 5.41, Hgb 16.1, Hct 50.0, MCV 92.4, MCH 29.8, MCHC 32.2, RDW 13.8, Plt Count 166, MPV 10.2, Neut % (Auto) 76.4, Lymph % (Auto) 16.4, [place] % (Auto) 5.6, Eos % (Auto) 0.6, Baso % (Auto) 0.3, Neut # (Auto) 12.0 H, Lymph # (Auto) 2.6, [place] # (Auto) 0.9, Eos # (Auto) 0.1, Baso # (Auto) 0.1, Sodium 136, Potassium 4.7, Chloride 101, Carbon Dioxide 22, Anion Gap 17.7 H, BUN 39 H, Creatinine 3.40 H, Estimated Creat Clear 27, Estimated GFR 19 L*, Est GFR ( Amer) 23 L, Glucose 178 H, Calcium 10.3 H, Magnesium 2.4 H, Total Bilirubin 0.6, AST 38, ALT 27, Alkaline Phosphatase 99, Total Creatine Kinase 130, Troponin I 0.02, Total Protein 9.4 H D, Albumin 5.3 H, Globulin 4.1 H, Albumin/Globulin Ratio 1.3 12/02/24 21:47: Lactate 1.1 12/02/24 22:00: Urine Color Yellow, Urine Appearance Sl cloudy, Urine pH 5.5, Ur Specific Sebastian >= 1.030, Urine Protein 1+ A, Urine Glucose (UA) 2+, Urine Ketones Trace, Urine Blood Negative, Urine Nitrate Negative, Urine Bilirubin 1+ A, Urine Urobilinogen 0.2, Ur Leukocyte Esterase Negative, Urine WBC 10-20, Urine Bacteria 2+, Urine Mucus 1+ 12/02/24 22:51: Hemoglobin A1c 7.5 H 12/03/24 06:35 12/03/24 06:35 Orders (Tests/Meds): ED MEDICATIONS Generic Name Dose Route Start Last Admin Trade Name Freq PRN Reason Stop Dose Admin Acetaminophen 650 mg 12/02/24 23:52 12/03/24 00:31 Acetaminophen 325mg Tab PO 01/01/25 23:51 650 mg Q6HP PRN Administration Fever or Mild Pain (1-3) Hydrocodone Bitart/Acetaminophen 1 tab 12/02/24 23:52 Hydrocodone/Apap 5/325 Mg Tablet PO 01/01/25 23:51 Q8HP PRN Moderate to Severe Pain (4-10) Heparin Sodium (Porcine) 5,000 unit 12/03/24 09:00 12/03/24 09:15 Heparin Sodium 5,000 Unit/Ml Vial SUBCUT 01/02/25 08:59 5,000 unit TID BHARAT Administration Insulin Glargine 40 unit 12/03/24 21:00 Insulin Glargine 100 Units/Ml 3ml Flexpen SUBCUT 01/02/25 20:59 HS BHARAT Insulin Human Lispro 0 unit 12/03/24 06:00 12/03/24 10:30 Humalog 100 Units/Ml 10ml Vial (Ssi) SUBCUT 01/02/25 05:59 Not Given ACHS [facility] Protocol Nicotine 42 mg 12/02/24 23:52 12/03/24 00:33 Nicotine 21mg/24hr Patch TD 01/01/25 23:51 42 mg DAILYP PRN Administration Nicotine Cravings Ondansetron HCl 4 mg 12/02/24 23:54 Ondansetron 4mg/2ml Vial IV 01/01/25 23:53 Q8HP PRN Nausea Sodium Chloride 10 ml 12/02/24 23:52 Sodium Chloride 0.9% 10ml Flush Syringe IV 01/01/25 23:51 NEEDED PRN Maintain IV Site Discontinued Medications Generic Name Dose Route Start Last Admin Trade Name Freq PRN Reason Stop Dose Admin Sodium Chloride 1,000 mls @ 999 mls/hr 12/02/24 20:22 12/02/24 20:54 Sod Chlor 0.9% 1000ml Bag IV 12/02/24 21:22 999 mls/hr .Q1H1M ONE Administration Sodium Chloride 1,000 mls @ 999 mls/hr 12/02/24 21:35 12/02/24 22:04 Sod Chlor 0.9% 1000ml Bag IV 12/02/24 22:35 999 mls/hr .Q1H1M ONE Administration Lactated Ringer's 1,000 mls @ 150 mls/hr 12/02/24 23:45 12/03/24 00:37 Lactated Ringer's 1000 Ml Bag IV 12/03/24 06:24 150 mls/hr .Q6H40M BHARAT Administration Ondansetron HCl 4 mg 12/02/24 20:22 12/02/24 20:54 Ondansetron 4mg/2ml Vial IV 12/02/24 20:23 4 mg ONCE ONE Administration ORDERS Category Date Time Status CBC w/Auto Diff [Complete Blood Count Auto Diff] Stat Lab 12/02/24 20:51 Completed CK [Creatine Kinase] Stat Lab 12/02/24 20:51 Completed CMP [Comprehensive Metabolic Panel] Stat Lab 12/02/24 20:51 Completed Complete Blood Count Auto Diff AMLAB Lab 12/03/24 06:35 Completed Comprehensive Metabolic Panel AMLAB Lab 12/03/24 06:35 Completed Hemoglobin A1C Stat Lab 12/02/24 22:51 Completed Lactic Acid Stat Lab 12/02/24 21:47 Completed Magnesium AMLAB Lab 12/03/24 06:35 Completed Magnesium Stat Lab 12/02/24 20:51 Completed Trop I [Troponin I] Stat Lab 12/02/24 20:51 Completed Troponin I Q3H Lab 12/03/24 03:30 Completed Urinalysis and Microscopic Stat Lab 12/02/24 22:00 Completed Urine Culture Stat Micro 12/02/24 22:00 Received Medical Decision Narrative: In summary patient is a 59-year-old male who presents to the emergency department for evaluation of weakness. Patient is initially hypotensive with a blood pressure of 90/50 heart rates 95 with sinus rhythm on the bedside monitor breathing 16 times a minute satting at 99% on room air upon arrival, afebrile at 98.3. Zickel exam reveals a well-nourished well-developed 59-year-old gentleman is currently in no acute distress. Breath sounds clear and equal bilateral to the bases with adventitious sounds, cardiovascular is S1 is 2 regular rate and rhythm without murmurs gallops rubs or thrills, abdomen soft nontender no rebound or guarding no rigidity. There is no dependent edema noted. [place] coma score is 15.. Differential diagnosis includes heat exhaustion versus electrolyte abnormality versus polypharmacy etc. Initial workup will be conducted with hematologic labs urinalysis. Initial interventions include crystalloid bolus and Zofran. Initial workup reviewed by me and his hematologic labs significant for white count of 15.7 normal H&H with absolute neutrophil count of 12, anion gap of 17 BUN is 39 creatinine is 3.4 GFR is 19 glucose 178 calcium 10.3 magnesium 2.4 and the remainder his hematologic labs are nonactionable.. Upon repeat evaluation after first liter of fluid patient's systolic blood pressure is still 80. Given this had interactive discussion with hospital medicine regarding patient presentation SMITH management and he will be admitted for further evaluation and care. <Porfirio Harp MD - Last Filed: 12/03/24 10:41> Vital Signs: 12/02/24 19:44 12/02/24 22:45 Temperature 98.3 F 98.4 F Temperature Source Oral Oral Pulse Rate 83 Pulse Rate [Radial] 95 H Respiratory Rate 16 16 Blood Pressure 95/56 L Blood Pressure [Right Arm] 90/50 L Blood Pressure Mean [Right Arm] 63 Blood Pressure Position Sitting Blood Pressure Position [Right Arm] Sitting 02 Sat by Pulse Oximetry 99 Oxygen Delivery Method Room Air Room Air Lab Data Lab Results 12/02/24 20:51: WBC 15.7 H, RBC 5.41, Hgb 16.1, Hct 50.0, MCV 92.4, MCH 29.8, MCHC 32.2, RDW 13.8, Plt Count 166, MPV 10.2, Neut % (Auto) 76.4, Lymph % (Auto) 16.4, [place] % (Auto) 5.6, Eos % (Auto) 0.6, Baso % (Auto) 0.3, Neut # (Auto) 12.0 H, Lymph # (Auto) 2.6, [place] # (Auto) 0.9, Eos # (Auto) 0.1, Baso # (Auto) 0.1, Sodium 136, Potassium 4.7, Chloride 101, Carbon Dioxide 22, Anion Gap 17.7 H, BUN 39 H, Creatinine 3.40 H, Estimated Creat Clear 27, Estimated GFR 19 L*, Est GFR ( Amer) 23 L, Glucose 178 H, Calcium 10.3 H, Magnesium 2.4 H, Total Bilirubin 0.6, AST 38, ALT 27, Alkaline Phosphatase 99, Total Creatine Kinase 130, Troponin I 0.02, Total Protein 9.4 H D, Albumin 5.3 H, Globulin 4.1 H, Albumin/Globulin Ratio 1.3 12/02/24 21:47: Lactate 1.1 12/02/24 22:00: Urine Color Yellow, Urine Appearance Sl cloudy, Urine pH 5.5, Ur Specific Sebastian >= 1.030, Urine Protein 1+ A, Urine Glucose (UA) 2+, Urine Ketones Trace, Urine Blood Negative, Urine Nitrate Negative, Urine Bilirubin 1+ A, Urine Urobilinogen 0.2, Ur Leukocyte Esterase Negative, Urine WBC 10-20, Urine Bacteria 2+, Urine Mucus 1+ 12/02/24 22:51: Hemoglobin A1c 7.5 H Orders (Tests/Meds): ED MEDICATIONS Generic Name Dose Route Start Last Admin Trade Name Freq PRN Reason Stop Dose Admin Acetaminophen 650 mg 12/02/24 23:52 12/03/24 00:31 Acetaminophen 325mg Tab PO 01/01/25 23:51 650 mg Q6HP PRN Administration Fever or Mild Pain (1-3) Hydrocodone Bitart/Acetaminophen 1 tab 12/02/24 23:52 Hydrocodone/Apap 5/325 Mg Tablet PO 01/01/25 23:51 Q8HP PRN Moderate to Severe Pain (4-10) Heparin Sodium (Porcine) 5,000 unit 12/03/24 09:00 12/03/24 09:15 Heparin Sodium 5,000 Unit/Ml Vial SUBCUT 01/02/25 08:59 5,000 unit TID BHARAT Administration Insulin Glargine 40 unit 12/03/24 21:00 Insulin Glargine 100 Units/Ml 3ml Flexpen SUBCUT 01/02/25 20:59 HS [facility] Insulin Human Lispro 0 unit 12/03/24 06:00 12/03/24 10:30 Humalog 100 Units/Ml 10ml Vial (Ssi) SUBCUT 01/02/25 05:59 Not Given ACHS [facility] Protocol Nicotine 42 mg 12/02/24 23:52 12/03/24 00:33 Nicotine 21mg/24hr Patch TD 01/01/25 23:51 42 mg DAILYP PRN Administration Nicotine Cravings Ondansetron HCl 4 mg 12/02/24 23:54 Ondansetron 4mg/2ml Vial IV 01/01/25 23:53 Q8HP PRN Nausea Sodium Chloride 10 ml 12/02/24 23:52 Sodium Chloride 0.9% 10ml Flush Syringe IV 01/01/25 23:51 NEEDED PRN Maintain IV Site Discontinued Medications Generic Name Dose Route Start Last Admin Trade Name Freq PRN Reason Stop Dose Admin Sodium Chloride 1,000 mls @ 999 mls/hr 12/02/24 20:22 12/02/24 20:54 Sod Chlor 0.9% 1000ml Bag IV 12/02/24 21:22 999 mls/hr .Q1H1M ONE Administration Sodium Chloride 1,000 mls @ 999 mls/hr 12/02/24 21:35 12/02/24 22:04 Sod Chlor 0.9% 1000ml Bag IV 12/02/24 22:35 999 mls/hr .Q1H1M ONE Administration Lactated Ringer's 1,000 mls @ 150 mls/hr 12/02/24 23:45 12/03/24 00:37 Lactated Ringer's 1000 Ml Bag IV 12/03/24 06:24 150 mls/hr .Q6H40M BHARAT Administration Ondansetron HCl 4 mg 12/02/24 20:22 12/02/24 20:54 Ondansetron 4mg/2ml Vial IV 12/02/24 20:23 4 mg ONCE ONE Administration ORDERS Category Date Time Status CBC w/Auto Diff [Complete Blood Count Auto Diff] Stat Lab 12/02/24 20:51 Completed CK [Creatine Kinase] Stat Lab 12/02/24 20:51 Completed CMP [Comprehensive Metabolic Panel] Stat Lab 12/02/24 20:51 Completed Complete Blood Count Auto Diff AMLAB Lab 12/03/24 06:35 Completed Comprehensive Metabolic Panel AMLAB Lab 12/03/24 06:35 Completed Hemoglobin A1C Stat Lab 12/02/24 22:51 Completed Lactic Acid Stat Lab 12/02/24 21:47 Completed Magnesium AMLAB Lab 12/03/24 06:35 Completed Magnesium Stat Lab 12/02/24 20:51 Completed Trop I [Troponin I] Stat Lab 12/02/24 20:51 Completed Troponin I Q3H Lab 12/03/24 03:30 Completed Urinalysis and Microscopic Stat Lab 12/02/24 22:00 Completed Urine Culture Stat Micro 12/02/24 22:00 Received Medical Decision Narrative: In summary patient is a 59-year-old male who presents to the emergency department for evaluation of weakness. Patient is initially hypotensive with a blood pressure of 90/50 heart rates 95 with sinus rhythm on the bedside monitor breathing 16 times a minute satting at 99% on room air upon arrival, afebrile at 98.3. Zickel exam reveals a well-nourished well-developed 59-year-old gentleman is currently in no acute distress. Breath sounds clear and equal bilateral to the bases with adventitious sounds, cardiovascular is S1 is 2 regular rate and rhythm without murmurs gallops rubs or thrills, abdomen soft nontender no rebound or guarding no rigidity. There is no dependent edema noted. GCS is 15.. Differential diagnosis includes heat exhaustion versus electrolyte abnormality versus polypharmacy etc. Initial workup will be conducted with hematologic labs urinalysis. Initial interventions include crystalloid bolus and Zofran. Initial workup reviewed by me and his hematologic labs significant for white count of 15.7 normal H&H with absolute neutrophil count of 12, anion gap of 17 BUN is 39 creatinine is 3.4 GFR is 19 glucose 178 calcium 10.3 magnesium 2.4 and the remainder his hematologic labs are nonactionable.. Upon repeat evaluation after first liter of fluid patient's systolic blood pressure is still 80. Given this had interactive discussion with hospital medicine regarding patient presentation SMITH management and he will be admitted for further evaluation and care. I was consulted by the LUIS, and we discussed the complexity of the problems being addressed. I approve the treatment and management plan for this patient's care in the emergency department, thus performing a substantive portion of the medical decision making. Porfirio Harp MD Critical Care <SHARON Dejesus - Last Filed: 12/02/24 22:09> Critical Care Time Critical Care Time: Yes Attestation: On 12/02/24, the high probability of a clinically significant, sudden or life threatening deterioration of the following system(s) required my full and direct attention, intervention and personal management. The time I documented below is in addition to time spent performing reported procedures but includes the following listed in this critical care notation. Total Time Total Critical Care Time: 30
[2024-12-02] MEDS: ONDANSETRON 4MG/2ML VIAL 4 MG IV (20:54)
[2024-12-02] MEDS: 0.9 % SODIUM CHLORIDE 1000ML 1,000 ML 999 ML IV ×2 (20:54→22:04)
[2024-12-02 21:11] LABS: Hematocrit 50.0 % (42.0-52.0); Hemoglobin 16.1 g/dL (14.1-18.0); Immature Granulocytes % 0.7 %; Mean Corpuscular HGB Conc 32.2 g/dL (31.8-35.4); Mean Corpuscular Hemoglobin 29.8 pg (27.0-31.2); Mean Corpuscular Volume 92.4 fl (80-94); Nucleated Red Blood Cells % 0 %; Platelet Count 166 K/mm3 (142-424); Red Blood Count 5.41 M/mm3 (4.60-6.20); Red Cell Distribution Width-SD 46.9 fL; White Blood Count 15.7 K/mm3 (4.8-10.8)
[2024-12-02 21:14] LABS: Albumin Level 5.3 g/dl (3.5-5.0); Chloride 101 mmol/L (98-107); Potassium 4.7 mmoL/L (3.5-5.1); Sodium 136 mmol/L (136-145)
[2024-12-02 21:17] LABS: Alanine Aminotransferase 27 U/L (12-78); Albumin/Globulin Ratio 1.3 (1.1-1.8); Alkaline Phosphatase 99 U/L (38-126); Anion Gap 17.7 mEq/L (5-15); Aspartate Amino Transferase 38 U/L (17-59); Bilirubin,Total 0.6 mg/dl (0.2-1.3); Blood Urea Nitrogen 39 mg/dl (9-20); Calcium 10.3 mg/dl (8.4-10.2); Carbon Dioxide 22 mmol/L (22.0-30.0); Creatine Kinase 130 U/L (55-170); Creatinine Clearance Estimated 27 mL/min (50-200); Creatinine,Serum 3.40 mg/dl (0.66-1.25); Estimated Glomerular Filt Rate 19 ml/min (>60); GFR (African American) 23 ML/MIN (>60); Globulin 4.1 g/dL (1.3-3.2); Glucose 178 mg/dl (74-100); Magnesium 2.4 mg/dl (1.6-2.3); Total Protein,Serum 9.4 g/dl (6.3-8.2)
[2024-12-02 21:28] LABS: Troponin I 0.02 ng/ml (0.00-0.034)
[2024-12-02 22:04] LABS: Microscopic, Urine URINE MICROSCOPIC (MICROSCOPIC)
[2024-12-02 22:10] LABS: Color,Urine YELLOW (Yellow); Glucose,Urine (UA) 2+ (Negative); Ketones,Urine TRACE (Negative); Leukocyte Esterase,Urine Negative (Negative); PH,Urine 5.5 (5.0-8.5); Protein,Urine 1+ (Negative); Specific Gravity, Urine >= 1.030 (1.005-1.030); Urobilinogen,Urine 0.2 EU/dl (0.2)
[2024-12-02 22:28] LABS: Bilirubin,Urine 1+ (Negative)
--- NOTE | 2024-12-02 22:35 | EXP.HP ---
History of Present Illness *Admission Date: 12/02/24 *Reason for visit:: Dizziness, fatigue, nausea and vomiting *History of present illness: 59-year-old male with history of diabetes, tobacco use disorder, lung cancer, hypertension, hyperlipidemia. Presented to the ER with complaint of upset stomach, dizziness, weakness. Symptoms have worsened over the past few days but states that they actually began last week. He has been working a lot outside. 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 Has been working outside with poor hydration and no air conditioning. On arrival to the ER, patient was frankly hypotensive. Initial labs showed BHARGAVI with creatinine of 3.4. BUN 39. Patient has had very poor urine output. Had a loose stool today and inability to tolerate p.o. intake due to nausea with drinking. is concerned because his blood pressure at home with systolics in the 70s. Received IV fluids in the ER. Was able to make a small amount of urine. As he is making urine, medicine was consulted for admission and further management of significant BHARGAVI and hypovolemia/dehydration. On evaluation after arriving to the floor, patient is alert and oriented x 4. Blood pressure improved to systolic 120s. Stable on room air. Family at bedside helps supplement history. Denies chest pain. Does complain of headache. Shortness of breath at baseline. Denies emily syncope or loss of consciousness. [facility] Disclaimer: The information contained in this section may have been updated after the patient was seen, as this information can be updated by other users. Medical History Impacted cerumen, left ear Mixed hearing loss Impacted cerumen, right ear Retained myringotomy tube in right ear Drainage from right ear Otalgia, right ear Surgical History History of tonsillectomy History of pneumonectomy History of throat surgery History of knee surgery History of hernia surgery History of ankle surgery History of cholecystectomy Social History Smoking Status: Current every day smoker tobacco type: cigarettes packs per day: 1 alcohol intake: never substance use type: denies use current occupational status: employed Travel in the last 8 weeks?: Inside the [place] household members: spouse housing: house current occupation: [employer] caffeine: Yes Have you lived/traveled outside [place] in past 30 days?: No Contact w/someone who lives/traveled outside [place] past 30 days?: No Exposure to someone with infectious disease in past 14 days?: No Do you have a fever (greater than 100.4 F or 38 C)?: No Have you tested positive for COVID-19?: No Exposed to someone with COVID-19 in past 14 days?: No Do you have a sore throat?: No Do you have a cough?: No Do you have any weakness?: No Do you have any diarrhea?: No Are you experiencing any unusual bleeding?: No Do you have any muscle aches/pain?: No Do you have any abdominal pain?: No Are you experiencing loss of taste or smell?: No Other Medical History Have you received the Flu Vaccine for this season: No Have you received the Pneumonia Vaccine: No Review of Systems Review of Systems Review of systems (narrative): 14 point review of systems performed, pertinent positives and negatives as per [facility] Meds Home Medications and Allergies Home Medications ?Medication ?Instructions ?Recorded ?Confirmed ?Type fenofibrate nanocrystallized 48 mg 48 mg PO DAILY Cholesterol 10/29/22 12/02/24 History tablet loratadine 10 mg tablet 10 mg PO DAILY Allergy symptoms 10/29/22 12/02/24 History losartan 100 mg tablet 100 mg PO DAILY High blood pressure 10/29/22 12/02/24 History metoprolol succinate 50 mg 50 mg PO DAILY heart rate 10/29/22 12/02/24 History tablet,extended release 24 hr rosuvastatin 20 mg tablet 20 mg PO HS Cholesterol 10/30/22 12/02/24 History blood sugar diagnostic (SoftheonTouch #10 ea 03/08/24 12/02/24 History Ultra Test strips) lancets 33 gauge (OneTouch Delica #100 ea 03/08/24 12/02/24 History Plus Lancet) metformin 500 mg tablet,extended 1,000 mg PO DAILY 03/08/24 12/02/24 History release 24 hr semaglutide 1 mg/dose (4 mg/3 mL) 2.5 mg SQ WEEKLY 03/08/24 12/02/24 History subcutaneous pen injector (Ozempic) tirzepatide 2.5 mg/0.5 mL 2.5 mg SQ QWEEK 03/08/24 12/02/24 History subcutaneous pen injector (Mounjaro) albuterol sulfate 90 mcg/actuation 2 inh inhalation Q6HP PRN soa 12/02/24 12/02/24 History aerosol inhaler (Ventolin HFA) cholecalciferol (vitamin D3) 25 25 mcg PO DAILY 12/02/24 12/02/24 History mcg (1,000 unit) chewable tablet (Vitamin D3) dapagliflozin propanediol 10 mg 10 mg PO DAILY 12/02/24 12/02/24 History tablet (Farxiga) gabapentin 100 mg tablet 100 mg PO HS 12/02/24 12/02/24 History insulin glargine 100 unit/mL (3 60 unit SQ HS 12/02/24 12/02/24 History mL) subcutaneous pen (Lantus Solostar U-100 Insulin) ondansetron HCl 4 mg/5 mL oral 4 mg PO Q6H PRN Nausea 12/02/24 12/02/24 History solution New Prescriptions to Start Prescriptions: Allergies Allergy/AdvReac Type Severity Reaction Status Date / Time nut - unspecified Allergy Severe Anaphylaxis Verified 12/02/24 23:06 penicillin G Allergy Severe Swelling Verified 03/08/24 10:06 of Lip/Tongue/Throat Exam Data for Last 24 hours Vital signs and Labs for Last 24 Hours: Temp Pulse Resp BP Pulse Ox O2 Del Method 98.3 F 95 H 16 90/50 L 99 Room Air 12/02/24 19:44 12/02/24 19:44 12/02/24 19:44 12/02/24 19:44 12/02/24 19:44 12/02/24 19:44 Laboratory Results - last 24 hr 12/02/24 20:51: WBC 15.7 H, RBC 5.41, Hgb 16.1, Hct 50.0, MCV 92.4, MCH 29.8, MCHC 32.2, RDW 13.8, Plt Count 166, MPV 10.2, Neut % (Auto) 76.4, Lymph % (Auto) 16.4, Catron % (Auto) 5.6, Eos % (Auto) 0.6, Baso % (Auto) 0.3, Neut # (Auto) 12.0 H, Lymph # (Auto) 2.6, Catron # (Auto) 0.9, Eos # (Auto) 0.1, Baso # (Auto) 0.1, Sodium 136, Potassium 4.7, Chloride 101, Carbon Dioxide 22, Anion Gap 17.7 H, BUN 39 H, Creatinine 3.40 H, Estimated Creat Clear 27, Estimated GFR 19 L*, Est GFR ( Amer) 23 L, Glucose 178 H, Calcium 10.3 H, Magnesium 2.4 H, Total Bilirubin 0.6, AST 38, ALT 27, Alkaline Phosphatase 99, Total Creatine Kinase 130, Troponin I 0.02, Total Protein 9.4 H D, Albumin 5.3 H, Globulin 4.1 H, Albumin/Globulin Ratio 1.3 12/02/24 21:47: Lactate 1.1 12/02/24 22:00: Urine Color Yellow, Urine Appearance Sl cloudy, Urine pH 5.5, Ur Specific [place] >= 1.030, Urine Protein 1+ A, Urine Glucose (UA) 2+, Urine Ketones Trace, Urine Blood Negative, Urine Nitrate Negative, Urine Bilirubin 1+ A, Urine Urobilinogen 0.2, Ur Leukocyte Esterase Negative I & O for Last 24 hours: Intake & Output 11/29/24 11/30/24 12/01/24 12/02/24 23:59 23:59 23:59 23:59 Weight 81.647 kg Constitutional Constitutional: no acute distress, obese, chronically ill appearing and cooperative *Routine HEENT Exam Head: Present normocephalic Eye: Present EOMI and PERRL ENT: Present mucous membranes moist *Routine Neck Exam Neck: Present supple; Absent lymphadenopathy Routine Chest/Breast/Axilla Exam Chest wall: Absent tenderness *Routine Respiratory Exam Respiratory: Present prolonged expiratory phase, rhonchi (Clear with cough) and normal respiratory effort; Absent wheezes or crackles *Routine Cardiovascular Exam Cardiovascular: Present RRR *Routine Abdominal Exam Abdominal: Present soft and normoactive bowel sounds; Absent tenderness *Routine Rectal Exam Rectal:: deferred *Routine Genitalia Exam Genitalia:: deferred *Routine Extremities Exam Extremities: Absent cyanosis, clubbing or edema *Routine Skin Exam Skin: Present intact and warm; Absent rash *Routine Neurological Exam Neurological: Present alert, oriented X3 and moving all extremities; Absent altered mental status Assessment and Plan *Assessment and plan (1) Acute hypotension: Status: Acute Category: Medical Code(s): I95.9 - Hypotension, unspecified (2) Acute kidney injury (nontraumatic): Status: Acute Category: Medical Code(s): N17.9 - Acute kidney failure, unspecified (3) Essential hypertension: Status: Chronic Category: Medical Code(s): I10 - Essential (primary) hypertension (4) Diabetes: Status: Chronic Category: Medical Code(s): E11.9 - Type 2 diabetes mellitus without complications (5) Lung cancer: Status: Chronic Category: Medical Code(s): C34.90 - Malignant neoplasm of unspecified part of unspecified bronchus or lung (6) Tobacco use disorder: Status: Chronic Category: Medical Code(s): F17.200 - Nicotine dependence, unspecified, uncomplicated Plan 59-year-old male with history of diabetes, lung cancer, hypertension, tobacco use disorder. Presented with weakness and dizziness. Had nausea and vomiting after attempting to hydrate at home orally. On arrival to the ER found to have BHARGAVI and emily hypotension likely due to hypovolemia. Discussed case with ER physician, request admission for further management of significant kidney injury and dehydration. I decided to admit for further care. Continuing IV fluids. Problems addressed as follows: BHARGAVI Dehydration Hypotension - Baseline creatinine normal at 1.0. Creatinine 3.4 on presentation with BUN 39, double his baseline. Potassium 4.7, magnesium 2.4. CK1 30. - Received 2 L of IV fluids in the ER. Has had small amount of urine output but is still making urine. Continue LR at 150 cc an hour for an additional liter overnight. Repeat CBC, CMP, magnesium ordered in the morning. Will monitor kidney function every 12 hours - Holding blood pressure medications and oral diabetes meds due to BHARGAVI - Blood pressure improved from systolics in the 70s to the 120s after fluid resuscitation - Had some vomiting prior to coming and. Initiate Zofran 4 mg IV every 8 hours as needed, anticipate improvement with increased hydration Neuropathy: Continue gabapentin 100 mg nightly Diabetes: A1c pending. Continue sliding scale insulin and fingersticks ACHS. Holding GLP-1, metformin, and SGLT2 in the setting of BHARGAVI; continue insulin glargine at reduced dose. Will make adjustments daily as patient tolerates p.o. intake Hypertension: Frankly hypotensive at this time. Will hold metoprolol and losartan. Likely contributed to his BHARGAVI. Tobacco use disorder: No interest in quitting at this time. Smokes 2 packs a day. Initiate 42 mg (2 patches) daily nicotine supplementation. History of lung cancer, complicates his care. Not undergoing chemotherapy at this time. Follows with oncology in [place] COPD: Continue albuterol 2 puffs every 6 hours as needed. Stable on room air. No acute exacerbation Hyperlipidemia: Holding fenofibrate and statin in the BHARGAVI and dehydration. Full code Diabetic diet Heparin 5000 units 3 times daily
[2024-12-02 22:43] LABS: Bacteria,Urine 2+ /lpf; Mucus,Urine 1+ /lpf
--- NOTE | 2024-12-02 22:44 | PC.NURSE ---
report given to Fadia RN
[2024-12-02 22:45] VITALS: BP 95/56; PULSE 83; RESP 16; TEMP 36.9; O2SAT 98
[2024-12-02 23:18] VITALS: BP 112/61; PULSE 87; RESP 16; TEMP 36.7; O2SAT 96; BMI 30.4
[2024-12-02 23:30] VITALS: RESP 16; O2SAT 96
[2024-12-02 23:50] LABS: Hemoglobin A1C 7.5 % (4.0-6.0)
[2024-12-03] MEDS: ACETAMINOPHEN 325MG TAB 650 MG PO (00:31)
[2024-12-03] MEDS: NICOTINE 21MG/24HR PATCH 42 MG TD (00:33)
[2024-12-03] MEDS: LACTATED RINGERS 1000ML 1,000 ML 150 ML IV (00:37)
[2024-12-03 04:00] VITALS: BP 96/56; PULSE 76; RESP 16; TEMP 36.6; O2SAT 91; BMI 31.1
[2024-12-03 04:04] LABS: Troponin I < 0.01 ng/ml (0.00-0.034)
--- NOTE | 2024-12-03 05:01 | PC.NURSE ---
Pt. was admitted to Med/surg overnight with c/o dehydration, BHARGAVI, and hypotension. Pt. has hx. lung cancer currently on immuno-therapy last treatment 3 weeks ago. Pt. is alert and orientated x 4. pt. is on room air. 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 Pt. did not drink much fluid during the day. when he got home he was dizzy, had nausea/vomiting, fatigue and weakness. Per he was hypotensive blood pressure systolic in the 70's. In ER pt. got fluids and blood pressure improved a little bit. Pt. c/o headache when was admitted to the floor. Pt. medicated for pain. Pt. sleeping well overnight. IV fluids infusing. Personal items and call natarajan in reach.
[2024-12-03 06:20] LABS: POC Glucose,Bedside 89 (70-110)
[2024-12-03 06:51] LABS: Hematocrit 40.8 % (42.0-52.0); Immature Granulocytes % 0.2 %; Mean Corpuscular HGB Conc 31.6 g/dL (31.8-35.4); Mean Corpuscular Hemoglobin 29.6 pg (27.0-31.2); Mean Corpuscular Volume 93.6 fl (80-94); Nucleated Red Blood Cells % 0 %; Platelet Count 125 K/mm3 (142-424); Red Blood Count 4.36 M/mm3 (4.60-6.20); Red Cell Distribution Width-SD 46.7 fL; White Blood Count 10.3 K/mm3 (4.8-10.8)
[2024-12-03 07:06] LABS: Alanine Aminotransferase 19 U/L (12-78); Albumin Level 3.3 g/dl (3.5-5.0); Albumin/Globulin Ratio 1.1 (1.1-1.8); Alkaline Phosphatase 74 U/L (38-126); Anion Gap 10.8 mEq/L (5-15); Aspartate Amino Transferase 29 U/L (17-59); Bilirubin,Total 0.3 mg/dl (0.2-1.3); Blood Urea Nitrogen 33 mg/dl (9-20); Calcium 9.1 mg/dl (8.4-10.2); Carbon Dioxide 21 mmol/L (22.0-30.0); Chloride 110 mmol/L (98-107); Creatinine Clearance Estimated 60 mL/min (50-200); Creatinine,Serum 1.60 mg/dl (0.66-1.25); Estimated Glomerular Filt Rate 45 ml/min (>60); GFR (African American) 54 ML/MIN (>60); Globulin 3.0 g/dL (1.3-3.2); Glucose 148 mg/dl (74-100); Magnesium 2.2 mg/dl (1.6-2.3); Potassium 3.8 mmoL/L (3.5-5.1); Sodium 138 mmol/L (136-145); Total Protein,Serum 6.3 g/dl (6.3-8.2)
[2024-12-03 07:18] LABS: Hemoglobin 13.3 g/dL (14.1-18.0)
[2024-12-03 08:00] VITALS: BP 92/54; PULSE 66; RESP 16; TEMP 36.7; O2SAT 98
[2024-12-03] MEDS: HEPARIN SODIUM 5,000 UNIT/ML VIAL 5000 UNIT SUBCUT ×2 (09:15→20:25)
[2024-12-03 10:34] LABS: POC Glucose,Bedside 105 (70-110)
--- NOTE | 2024-12-03 10:45 | HMH.PHAINT1 ---
Pharmacy Intervention Comments: MEDICATION RECONCILIATION COMPLETED ON PATIENT USING EXTERNAL FILL HISTORY FROM PHARMACY. -NEREIDA BURDICK, AYDEND
[2024-12-03 12:00] VITALS: BP 100/56; PULSE 66; RESP 16; TEMP 36.7; O2SAT 95
--- OUTSIDE RECORDS SUMMARY | 2024-12-03 13:26 | XMS_ITS | Clinical Summary ---
Author Organization [facility] Address [address] [place] [id number] Care Team Providers Care Web Marketing Specialist Name Role Phone Arron Cueva MD Primary Care Provider [phone] Allergies Active Allergy Reactions Criticality Noted Date [...] Take 40 mg by mouth Daily. Active umeclidinium-georges anterol (ANORO ELLIPTA) 62.5-25 MCG/INH aerosol powder [...] (02/18/2019): Added automatically from request for surgery [id number] Social History Tobacco Use Types Packs/Day Years [...] help finding or keeping work or a leif b? Not on file 02/19/2023 Disabilities Answer [...] INFLUENZA VACCINE 02/08/2025 Insurance PPO Care Teams Web Marketing Specialist Relationship Specialty Start Date End Date Arron Cueva MD [address] [facility] [address] [facility] [id number] PCP - General Adolescent Medicine 03/03/19
--- OUTSIDE RECORDS SUMMARY | 2024-12-03 13:26 | XMS_ITS | Clinical Summary ---
Author Organization [facility] Address [address] [place] [address] Care Team Providers Care Outdoor Pursuits Instructor Name Role Phone Krish Chapman MD Unavailable [phone] Arron Cueva MD Primary Care Provider [phone] Allergies Active Allergy Reactions Criticality Noted Date Comments Peanut Oil Anaphylaxis High 11/06/2021 Unknown type of nut. In ICU. Did not follow-up with machinery rigger. Penicillins Anaphylaxis High 04/25/2013 Tree Nuts Angioedema High 11/06/2021 Unknown type of nut. In ICU. Did not follow-up with machinery rigger. Medications * This document contains information received [...] 01/14/20 24 Active Lancets (OneTouch Delica Plus [id number]) misc 01/14/20 24 Active hydrOXYzine HCl (Atarax) [...] 25 Active ergocalciferol (Vitamin D-2) 1.25 MG (52148 UT) capsule Take 1 capsule (50,000 Units) [...] (12/03/2022): Added automatically from request for surgery [id number] Hemorrhage of anus and rectum 04/25/2013 12/03/2022 01/28/2023 Heartburn 04/25/2013 12/03/2022 01/28/2023 GERD (gastroesophageal reflux disease) 04/25/201303/04/2024 Encounters Date Type Department Care Team Description 11/10/2024 Social Work Psych Oncology [address] [place] [address] Kim Dawkins 11/09/2024 Orders Only [facility] [address] [phone] Krish Romo RN Non-small cell cancer of left lung (CMS/HCC) (Primary Dx) 11/09/2024 Orders Only [facility] [address] [phone] Krish Romo, RN Malignant neoplasm of upper lobe of left lung (CMS/HCC) (Primary Dx) 11/08/2024 12:19 PM EDT - 11/08/2024 11:59 PM EDT Hospital Encounter [facility] In[facility] [address] [place] [phone] Non-small cell cancer of left lung (CMS/HCC) (Primary Dx) Discharge Disposition: Home or Self Care 11/08/2024 11:40 AM EDT Office Visit [facility] [address] [phone] Krish Chapman MD Uncontrolled type 2 diabetes mellitus with hyperglycemia (CMS/HCC) (Primary Dx); Non-small cell cancer of left lung (CMS/HCC); Hyperlipemia, idiopathic familial; Tachycardia; Severe obesity (BMI 35.0-39.9) with comorbidity (CMS/HCC); Malignant neoplasm metastatic to left adrenal gland (CMS/HCC); On antineoplastic chemotherapy 11/08/2024 11:15 AM EDT Clinical Support [facility] [address] [phone] Non-small cell cancer of left lung (CMS/HCC); Uncontrolled type 2 diabetes mellitus with hyperglycemia (CMS/HCC); Hyperlipemia, idiopathic familial; Tachycardia 11/08/2024 9:05 AM EDT - 11/08/2024 12:18 PM EDT Hospital Encounter [facility] [address] [place] [phone] Non-small cell cancer of left lung (CMS/HCC) Discharge Disposition: Home or Self Care 11/08/2024 Travel 09/27/2024 11:19 AM EDT - 09/27/2024 11:59 PM EDT Hospital Encounter [facility] [address] [place] [phone] Non-small cell cancer of left lung (CMS/HCC) (Primary Dx) Discharge Disposition: Home or Self Care 09/27/2024 11:00 AM EDT Office Visit [facility] [address] [phone] Jo Ann Pagan APRN Non-small cell cancer of left lung (CMS/HCC) (Primary Dx); Itching due to drug; Other fatigue; Dyspnea on exertion 09/27/2024 10:45 AM EDT Clinical Support [facility] [address] [phone] Non-small cell cancer of left lung (CMS/HCC) 09/27/2024 Social Work Psych Oncology [address] [place] [phone] Jackie Dunn 09/27/2024 Travel from Last 3 [...] place to sleep or slept in a skilled nursing (including now)? No 10/07/2023 PHQ-9 Answer Date [...] drink first t franny in the morning (EYE-BUSINESS ASSISTANT) to steady your nerves or to get [...] Info) Description 12/20/2024 9:20 AM EDT Appointment [facility] [address] [place] [address] 12/20/2024 10:00 AM EDT Clinical Support [facility] [address] [address] 12/20/2024 10:20 AM EDT Office Visit [facility] [address] [address] Krish Chapman MD [address] [address] 12/20/2024 11:00 AM EDT Appointment [facility] [address] [place] [address] Health Maintenance Due Date Last Done Comments Dental Oral Exam 1966 Dental Prophylaxis 1966 Dental X-Ray: Bitewings 1966 Dental X-Ray: Full Mouth 1966 UKY-/Child/Adol SDOH Screenings 1966 [id number] Vaccine (#1) 09/07/1971 Diabetes: Dental Exam 1976 [...] this topic Medical Devices Implanted Type Area Poll Clerk Device Identifier Shelf Expiration Date Model / Serial / Lot Chastity Truong - [id number] - [id number] Implanted:Qty : 1 on 12/19/2021 by Becki Rogel MD at [facility] Implant N/A: Vocal Cord [employer]-[id number] 10/21/2023 [id number] / [id number] / [id number] Port [employer] 8fr - [id number] Implanted:Qty : 1 on 12/08/2022 by Kristin Rodriguez MD at [facility] [employer]-[id number] / / Procedures Procedure Name Priority Date/Time [...] resultswithin the time period is included. Pathologist [facility] Thyroid Stimulating Hormone, Plasma 3.90 0.40 - 4.20 uIU/mL 11/08/2024 12:02 PM EDT [facility] Blood Blood sample taken from central line / Unknown (Port) Long-term Catheter / Unknown 11/08/2024 11:03 AM EDT 11/08/2024 11:26 AM EDT us Krish Chapman MD LAB BLOOD ORDERABLES Final Res ult [facility] [address] [place] [address] * (ABNORMAL) CBC and differential (11/08/2024 11:03 AM EDT) Only the most recent of2 resultswithin the time period is included. Pathologist [facility] WBC Count 8.96 3.70 - 10.30 10*3/uL LAB HEMATOLOGY METHOD 11/08/2024 11:37 AM EDT [facility] RBC Count 4.70 4.60 - 6.10 10*6/uL LAB HEMATOLOGY METHOD 11/08/2024 11:37 AM EDT [facility] HGB 14.3 13.7 - 17.5 g/dL LAB HEMATOLOGY METHOD 11/08/2024 11:37 AM EDT [facility] HCT 42.6 40.0 - 51.0 % LAB HEMATOLOGY METHOD 11/08/2024 11:37 AM EDT [facility] Platelet Count 124(L) 155 - 369 10*3/uL LAB HEMATOLOGY METHOD 11/08/2024 11:37 AM EDT [facility] MCV 91 79 - 98 fL LAB HEMATOLOGY METHOD 11/08/2024 11:37 AM EDT [facility] MCH 30.4 26.0 - 32.0 pg LAB HEMATOLOGY METHOD 11/08/2024 11:37 AM EDT [facility] MCHC 33.6 30.7 - 35.5 g/dL LAB HEMATOLOGY METHOD 11/08/2024 11:37 AM EDT [facility] RDW 13.2 11.5 - 14.5 % LAB HEMATOLOGY METHOD 11/08/2024 11:37 AM EDT [facility] MPV 10.7 8.8 - 12.5 fL LAB HEMATOLOGY METHOD 11/08/2024 11:37 AM EDT [facility] nRBC 0.0 <=0.0 per 100 WBCs LAB HEMATOLOGY METHOD 11/08/2024 11:37 AM EDT [facility] Differential Type Automated LAB HEMATOLOGY METHOD 11/08/2024 11:37 AM EDT [facility] Neutrophils % 57 % LAB HEMATOLOGY METHOD 11/08/2024 11:37 AM EDT [facility] Lymphocytes % 33 % LAB HEMATOLOGY METHOD 11/08/2024 11:37 AM EDT [facility] Monocytes % 8 % LAB HEMATOLOGY METHOD 11/08/2024 11:37 AM EDT [facility] Eosinophils % 2 % LAB HEMATOLOGY METHOD 11/08/2024 11:37 AM EDT [facility] Basophils % 0 % LAB HEMATOLOGY METHOD 11/08/2024 11:37 AM EDT [facility] Immature Granulocytes % 0 % LAB HEMATOLOGY METHOD 11/08/2024 11:37 AM EDT [facility] Neutrophils Absolute 5.11 1.60 - 6.10 10*3/uL LAB HEMATOLOGY METHOD 11/08/2024 11:37 AM EDT [facility] Lymphocytes Absolute 2.96 1.20 - 3.90 10*3/uL LAB HEMATOLOGY METHOD 11/08/2024 11:37 AM EDT [facility] Monocytes Absolute 0.67 0.30 - 0.90 10*3/uL LAB HEMATOLOGY METHOD 11/08/2024 11:37 AM EDT [facility] Eosinophils Absolute 0.14 0.00 - 0.50 10*3/uL LAB HEMATOLOGY METHOD 11/08/2024 11:37 AM EDT [facility] Basophils Absolute 0.04 0.00 - 0.10 10*3/uL LAB HEMATOLOGY METHOD 11/08/2024 11:37 AM EDT [facility] Immature Granulocytes Absolute 0.04 0.00 - 0.06 10*3/uL LAB HEMATOLOGY METHOD 11/08/2024 11:37 AM EDT [facility] Blood Blood sample taken from central line / Unknown (Port) Long-term Catheter / Unknown 11/08/2024 11:03 AM EDT 11/08/2024 11:28 AM EDT Narrative [facility] - 11/08/2024 11:37 AM EDT Therapeutic decision making should be based on absolute values, rather than percentages. us Krish Chapman MD LAB BLOOD ORDERABLES Final Res ult Performing Organization Address City/[facility]/ZIP Co de Phone Number [facility][1] [address] [place] [address] * (ABNORMAL) Hemoglobin A1c (11/08/2024 11:03 AM EDT) Hemoglobin A1c 8.3(H) <5.7 % 11/08/2024 1:55 PM EDT [facility][1] Blood Venous blood specimen / Unknown Venipuncture / Unknown 11/08/2024 11:03 AM EDT 11/08/2024 11:28 AM EDT Narrative [facility] - 11/08/2024 1:55 PM EDT HA1C Interpretive Data: Diagnosis of Diabetes: Diabetic > or = 6.5% Pre-diabetic 5.7 to 6.4% Non-diabetic < or = 5.6% Glycemic Targets for Type I and Type II Diabetics: Non- Adults <7.0% Adults <6.0% Children and Adolescents <7.5% Source: [place] [employer]. Standards of medical care in diabetes,2017. Diabetes Care.2017:40 (suppl 1):S1-S135. us Pippa Pollack APRN LAB BLOOD ORDERABLES Final Result Performing Organization Address City/[facility]/ZIP Co de Phone Number [facility] [address] [place] [address] * (ABNORMAL) Lipid Profile, Plasma (11/08/2024 11:03 AM EDT) Cholesterol, Plasma 113 <200 mg/dL 11/08/2024 12:02 PM EDT [facility] Comment: Cholesterol Reference Range (age >17 years): Desirable <200 mg/dL Borderline 200 to 239 mg/dL Undesirable >239 mg/dL HDL 30(L) >=40 mg/dL 11/08/2024 12:02 PM EDT [facility] Comment: HDL Cholesterol Reference Ranges (age >17 years): Female, acceptable > or = 50 mg/dL Male, acceptable > or = 40 mg/dL Triglycerides, Plasma 204(H) <150 mg/dL 11/08/2024 12:02 PM EDT [facility] Comment: Triglyceride Reference Range (age >17 years): Desirable: <150 mg/dL Borderline high: 150 to 199 mg/dL High: 200 to 499 mg/dL Very high: >499 mg/dL Increased risk of pancreatitis: >1000 mg/dL Cholesterol/HDL Ratio 4 11/08/2024 12:02 PM EDT [facility] LDL, Calculated 50 <100 mg/dL 12:02 PM EDT [facility] Comment: LDL Cholesterol Reference [...] 12 hours? No 11/08/2024 12:02 PM EDT [facility] Blood Blood sample taken from central line / Unknown (Port) Long-term Catheter / Unknown 11/08/2024 11:03 AM EDT 11/08/2024 11:26 AM EDT Pippa Pollack APRN LAB BLOOD ORDERABLES Final Result [facility] [address] [place] [address] * (ABNORMAL) Comprehensive metabolic panel (11/08/2024 11:03 AM EDT) Only the most recent of2 resultswithin the time period is included. Glucose, Plasma 230(H) 74 - 99 mg/dL 11/08/2024 12:02 PM EDT [facility] BUN, Plasma 11 7 - 21 mg/dL 11/08/2024 12:02 PM EDT [facility] Creatinine, Plasma 0.74 0.70 - 1.20 mg/dL 11/08/2024 12:02 PM EDT [facility] BUN/Creatinine Ratio 15 11/08/2024 12:02 PM EDT [facility] Sodium, Plasma 139 136 - 145 mmol/L 11/08/2024 12:02 PM EDT [facility] Potassium, Plasma 4.2 3.6 - 4.9 mmol/L 11/08/2024 12:02 PM EDT [facility] Chloride, Plasma 103 97 - 107 mmol/L 11/08/2024 12:02 PM EDT [facility] CO2, Plasma 26 22 - 29 mmol/L 11/08/2024 12:02 PM EDT [facility] Anion Gap 10 6 - 16 mmol/L 11/08/2024 12:02 PM EDT [facility] Total Calcium, Plasma 9.4 8.9 - 10.2 mg/dL 11/08/2024 12:02 PM EDT [facility] Total Protein 6.7 6.3 - 7.9 g/dL 11/08/2024 12:02 PM EDT [facility] Albumin, Plasma 4.1 3.5 - 5.2 g/dL 11/08/2024 12:02 PM EDT [facility] AST, Plasma 20 10 - 50 U/L 11/08/2024 12:02 PM EDT [facility] ALT, Plasma 22 10 - 50 U/L 11/08/2024 12:02 PM EDT [facility] Alkaline Phosphatase, Plasma 103 40 - 115 U/L 11/08/2024 12:02 PM EDT [facility] Total Bilirubin, Plasma 0.2 0.2 - 1.1 mg/dL 11/08/2024 12:02 PM EDT [facility] eGFRcr 105.0 mL/min/1.7 3m*2 11/08/2024 12:02 PM EDT [facility] Comment:Reported eGFRcr in m L/min/1.73m2 is based the CKD-EPI 2020 equation that does not use a race coefficient. Blood Blood sample taken from central line / Unknown (Port) Long-term Catheter / Unknown 11/08/2024 11:03 AM EDT 11/08/2024 11:26 AM EDT us Krish Chapman MD LAB BLOOD ORDERABLES Final Res ult [facility] [address] [place] [address] * CT Abdomen w IV Contrast (11/08/2024 [...] 11/08/2024 10:42 AM Final report signed by iJm Ball MD on 11/08/2024 12:19 PM Narrative 11/08/2024 12:19 PM EDT CLINICAL INDICATION: cancer evaluation TECHNIQUE: Multiple CT helical images were obtained from thoracic inlet through iliac crests with administration of IV contrast. 100 mL of Omnipaque-300 were administered intravenously. Total DLP (Dose-Length Product): 637.29 mGy.cm (accession [id number]), 637.29 mGy.cm (accession [id number]). Please note: The reported value represents the [...] Total DLP (Dose-Length Product): 637.29 mGy.cm (accession [id number]),637.29 mGy.cm (accession [id number]). Please note: The reported valuerepresents the total [...] Total DLP (Dose-Length Product): 637.29 mGy.cm (accession [id number]), 637.29 mGy.cm (accession [id number]). Please note: The reported value represents the [...] Total DLP (Dose-Length Product): 637.29 mGy.cm (accession [id number]),637.29 mGy.cm (accession [id number]). Please note: The reported valuerepresents the total [...] 11/08/2024 9:40 AM EDT [facility] Explosives Mixer Operator ID Myranda Collado 11/08/2024 9:40 AM EDT HEALTHCARE LAB Device ID [id number] 11/08/2024 9:40 AM EDT [facility]ALTH[facility]ARE LAB Comment 11/08/2024 9:40 AM EDT [facility] Comment:Testing performed on i-STAT at the point of care. Reported eGFRcr in mL/min/1.73m2 is based the CKD-EPI 2020 equation that does not use a race coefficient. Blood Venous blood specimen / Unknown 11/08/2024 9:36 AM EDT 11/08/2024 9:40 AM EDT Generic Provider Poct LAB POINT OF CARE TEST DOCKED DEVICE UNSOLICITED RESULTS Final Result [facility] [address] LAB [address] [place] [address] * ED HIV 1/2 Antibody/Antigen Screen w/Reflex [...] ORDERABLES Final Resul t Performing Organization Address City/[facility] Co de Phone Number [facility] [address] [place] [address] * Hepatitis C Antibody - ED (10/02/2023 10:15 AM EDT) Hepatitis C Antibody Negative Negative 10/02/2023 10:51 AM EDT [facility] Blood Venous blood specimen / Unknown Venipuncture / Unknown 10/02/2023 10:15 AM EDT 10/02/2023 10:21 AM EDT Naina Moreau MD LAB BLOOD ORDERABLES Final Resul t Performing Organization Address [facility] Co de Phone Number [facility] [address] [place] [address] * Colonoscopy (08/27/2022 3:19 PM EDT) Anatomical [...] of bowel preparation was evaluated using the [place] Bowel Preparation Scale with scores of: right [...] Recently Relevant to Health Maintenance Insurance AETNA [facility] MEDICAID [facility] MEDICAID DENTAL Advance Directives * Full Code [...] Patient has decision-making capacity? Yes Care Teams Outdoor Pursuits Instructor Relationship Specialty Start Date End Date Arron Cueva MD [address] [place] [address] PCP - General Internal Medicine 11/03/22 rKish Chapman MD [address] [place] [phone] Consulting Physician Medical Oncology 07/18/22
--- OUTSIDE RECORDS SUMMARY | 2024-12-03 13:26 | XMS_ITS | Clinical Summary ---
Author Organization [facility] [place] [address] Care Team Providers Care Building Serviceman Name Role Phone Unavailable Primary Care Provider [...]
--- OUTSIDE RECORDS SUMMARY | 2024-12-03 13:26 | XMS_ITS | Encounter Summary ---
Author Organization [facility] Address [address] [place] [address] Care Team Providers Care Transition Nurse Name Role Phone Krish Chapman MD Unavailable [phone] Arron Cueva MD Primary Care Provider [phone] Reason for Visit * Reason Comments Resource Navigation Encounter Details Date Type Department Care Team (Late st Contact Info) Description 11/10/2024 Social Work Psych Oncology [address] [place] [address] Kim Dawkins Social History Tobacco Use Types [...] place to sleep or slept in a intermediate (including now)? No 10/07/2023 PHQ-9 Answer Date [...] drink first t franny in the morning (EYE-INSULATION CUTTER AND FORMER) to steady your nerves or to get [...] Call Disease Status: Established Patient Clinic Location: [facility] Disease Type: Lung & Bronchus Intervention Level: 1 Units (1 unit = 15 minutes): 1 Narrative: CHARGER OPERATOR reached out to pt to inform pt that CHARGER OPERATOR unable to assist with bill as discussed in exam room. Pt did not answer. VM left with details of call and encouraged pt to call back at earliest convenience. No further needs identified. CHARGER OPERATOR to remain available for any ongoing needs or support. Kim Dawkins, ASSEMBLER CAMPER, CHARGER OPERATOR [facility] Psych-Oncology Services documented in this encounter Plan of Treatment Upcoming Encounters Date Type Department Care Team ([facility] st Contact Info) Description 12/20/2024 9:20 AM EDT Appointment [facility] [address] [place] [address] 12/20/2024 10:00 AM EDT Clinical Support [facility] [address] [place] [phone] 12/20/2024 10:20 AM EDT Office Visit [facility] [address] [place] [phone] Krish Chapman MD [address] [phone] 12/20/2024 11:00 AM EDT Appointment [facility] [address] [place] [address] documented as of this encounter Visit Diagnoses [...] documented as of this encounter Care Teams Transition Nurse Relationship Specialty Start Date End Date Arron Cueva MD [address] [place] [address] PCP - General Internal Medicine 11/03/22 Krish Chapman MD [address] [phone] Consulting Physician Medical Oncology 07/18/22 documented as of this encounter
--- OUTSIDE RECORDS SUMMARY | 2024-12-03 13:26 | XMS_ITS | Encounter Summary ---
Author Organization [facility] Address [address] [place] [address] Care Team Providers Care Contracting Engineer Name Role Phone Krish Chapman MD Unavailable [phone] Arron Cueva MD Primary Care Provider [phone] Reason for Referral * Imaging (Routine) - Authorized Specialty Diagnoses / Procedures Referred By Contac t Referred To Contact Radiology Diagnoses Non-small cell cancer of left lung (CMS/HCC) Procedures CT Abdomen w IV Contrast Krish Chapman MD [address] [address] Phone: tel: fax: Referral ID Status Reason Start Date Expiration Date V isits Requested Visits Authorized [id number] Authorized 11/09/2024 05/11/2026 1 1 * Imaging (Routine) - Authorized Specialty Diagnoses / Procedures Referred By Contac t Referred To Contact Radiology Diagnoses Non-small cell cancer of left lung (CMS/HCC) Procedures CT Chest w IV Contrast Krish Chapman MD [address] [address] Phone: tel: fax: Referral ID Status Reason Start Date Expiration Date V isits Requested Visits Authorized [id number] Authorized 11/09/2024 05/11/2026 1 1 Encounter Details Date Type Department Care Team (Late st Contact Info) Description 11/09/2024 Orders Only [facility] [address] [place] [address] Krish Romo, RN -[facility] AMB SERV ADMIN Non-small cell cancer of [...] place to sleep or slept in a chcf (including now)? No 10/07/2023 PHQ-9 Answer Date [...] drink first t franny in the morning (EYE-MANAGER TRANSFER) to steady your nerves or to get rid of a hangover? 0 10/02/2023 CAGE Questionnaire Score 0 024 Utilities Answer Date Recorded In the past 12 months has th [employer], gas, oil, or water [employer] threatened to shut off services in your [...] Info) Description 12/20/2024 9:20 AM EDT Appointment [facility] CT [address] [place] [address] 12/20/2024 10:00 AM EDT Clinical Support [facility] [address] [phone] 12/20/2024 10:20 AM EDT Office Visit [facility] [address] [address] Krish Chapman MD [address] [phone] 12/20/2024 11:00 AM EDT Appointment [facility] [address] [place] [address] Scheduled Orders Name Type Priority Associated Diagnoses [...] documented as of this encounter Care Teams Contracting Engineer Relationship Specialty Start Date End Date Arron Cueva MD [address] [place] [address] PCP - General Internal Medicine 11/03/22 Krish Chapman MD [address] [place] [phone] Consulting Physician Medical Oncology 07/18/22 documented as of this encounter
--- OUTSIDE RECORDS SUMMARY | 2024-12-03 13:26 | XMS_ITS | Encounter Summary ---
Author Organization [facility] Address [address] [place] [address] Care Team Providers Care Dog Sitter Name Role Phone Krish Chapman MD Unavailable [phone] Arron Cueva MD Primary Care Provider [phone] Encounter Details Date Type Department Care Team (Late st Contact Info) Description 11/09/2024 Orders Only [facility] 800 [facility], [address] [place] [address] Krish Romo, RN [facility] AMB SERV ADMIN Malignant neoplasm [...] place to sleep or slept in a residential (including now)? No 10/07/2023 PHQ-9 Answer Date [...] drink first t franny in the morning (EYE-M48 M60 ARMOR CREWMAN) to steady your nerves or to get [...] Encounters Date Type Department Care Team ([facility] st Contact Info) Description 12/20/2024 9:20 AM EDT Appointment [facility] CT [address] [place] [address] 12/20/2024 10:00 AM EDT Clinical Support [facility] [address] [facility], [address] [place] [phone] 12/20/2024 10:20 AM EDT Office Visit [facility] [address] [facility], [address] [place] [phone] Krish Chapman MD [address] [address] 12/20/2024 11:00 AM EDT Appointment [facility] [address] [place] [address] Scheduled Orders Name Type Priority Associated Diagnoses [...] documented as of this encounter Care Teams Dog Sitter Relationship Specialty Start Date End Date Arron Cueva MD [address] [place] [address] PCP - General Internal Medicine 11/03/22 Krish Chapman MD [address] [place] [phone] Consulting Physician Medical Oncology 07/18/22 documented as of this encounter
--- OUTSIDE RECORDS SUMMARY | 2024-12-03 13:26 | XMS_ITS | Encounter Summary ---
Author Organization [facility] Address [address] [id number] Care Team Providers Care Civil Engineer Name Role Phone Yaya Cuevas MD Primary Care Provider [phone] Krish Chapman MD Unavailable [phone] Arron Cueva MD Primary Care Provider [phone] Reason for Visit * Reason Comments financial assistance Encounter Details Date Type Department Care Team ([facility] Contact Info) Description 11/27/2021 Social Work [facility] [address] , [address] [place] [address] [place] [address] Social History Tobacco Use Types Packs/Day Years [...] SW committed to making a referral to [facility] Financial Navigator to help assess for what [...] to pt as requested. DEON Vale, TONI [facility] documented in this encounter Plan of Treatment Upcoming Encounters Date Type Department Care Team (Late st Contact Info) Description 12/20/2024 9:20 AM EDT Appointment [facility] [address] [place] [address] 12/20/2024 10:00 AM EDT Clinical Support Pav [facility] Res[facility] [address] [phone] 12/20/2024 10:20 AM EDT Office Visit Pav [facility] Res[facility] [address] [phone] Krish Chapman MD [address] [phone] 12/20/2024 11:00 AM EDT Appointment P[facility] H Infusion [address] [place] [phone] documented as of this encounter Visit Diagnoses [...] documented as of this encounter Care Teams Civil Engineer Relationship Specialty Start Date End Date Yaya Cuevas MD [facility] [address] [place] [address] PCP - General 10/02/21 11/02/22 Arron Cueva MD [address] [place] [address] [address] [place] [address] PCP - General Internal Medicine 11/03/22 Krish Chapman MD [address] [address] Consulting Physician Medical Oncology 07/18/22 documented as of this encounter
--- OUTSIDE RECORDS SUMMARY | 2024-12-03 13:26 | XMS_ITS ---
Author Organization [facility] Address [address] [place] [address] Care Team Providers Care Parachute Crown Sewer Name Role Phone Krish Chapman MD Unavailable [phone] Arron Cueva MD Primary Care Provider [phone] Active Problems * This document contains information [...] (Gemzar) IVPBpembrolizumab (Keytruda) IVPB Therapy Complete Krish Chapman MD 4 of 4 cycles started Pembrolizumab [...] (12/03/2022): Added automatically from request for surgery [id number] Hemorrhage of anus and rectum 04/25/2013 12/03/2022 01/28/2023 Heartburn 04/25/2013 12/03/2022 01/28/2023 GERD (gastroesophageal reflux disease) 04/25/201303/04/2024
--- OUTSIDE RECORDS SUMMARY | 2024-12-03 13:26 | XMS_ITS | Encounter Summary ---
Author Organization [facility] Address [address] [place] [address] Care Team Providers Care Fur Designer Name Role Phone Yaya Cuevas MD Primary Care Provider [phone] Krish Chapman MD Unavailable [phone] Arron Cueva MD Primary Care Provider [phone] Reason for Referral * Consultation (Routine) - Closed Specialty Diagnoses / Procedures Referred By Contcee t Referred To Contact Cardiothoracic Surgery Diagnoses Pulmonary nodule Yaya Cuevas MD [address] [place] [address] Phone: tel: fax: Referral ID Status Reason Start Date Expiration Date V isits Requested Visits Authorized [id number] Closed Specialty Services Required 08/22/2021 02/21/2023 1 1 Encounter Details Date Type Department Care Team (Late st Contact Info) Description 08/22/2021 [facility] [address] [place] [address] Yaya Cuevas MD [address] [place] [address] Pulmonary nodule (Primary Dx) Social History Tobacco [...] Info) Description 12/20/2024 9:20 AM EDT Appointment [facility] [address] [place] [address] 12/20/2024 10:00 AM EDT Clinical Support Pav [facility] Neck [facility] Respiratory 800 [facility], [address] [place] [phone] 12/20/2024 10:20 AM EDT Office Visit Pav [facility] Head[facility] Neck & Respiratory 800 [facility], [address] [place] [phone] Krish Chapman MD [address] [phone] 12/20/2024 11:00 AM EDT Appointment [facility] [address] [place] [phone] Scheduled Referrals Name Type Priority Associated Diagnoses [...] documented as of this encounter Care Teams Fur Designer Relationship Specialty Start Date End Date Yaya Cuevas MD [address] [place] [address] PCP - General 10/02/21 11/02/22 Arron Cueva MD [address] [place] [address] PCP - General Internal Medicine 11/03/22 Krish Chapman MD [address] [address] Consulting Physician Medical Oncology 07/18/22 documented as of this encounter
--- OUTSIDE RECORDS SUMMARY | 2024-12-03 13:26 | XMS_ITS | Encounter Summary ---
Author Organization [facility] Address [address] 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, [address] [place] [phone] 12/20/2024 10:00 AM EDT Clinical Support Pav [facility] Respiratory [address] [phone] 12/20/2024 10:20 AM EDT Office Visit Pav [facility] Head[facility] Neck [facility] Respiratory [address] [phone] Krish Chapman MD [address] [phone] 12/20/2024 11:00 AM EDT Appointment [facility] [address] [place] [address] documented as of this encounter Visit Diagnoses [...] documented as of this encounter Care Teams Lining Strap Closer Relationship Specialty Start Date End Date Arron Cueva MD [address] [place] [address] PCP - General Internal Medicine 11/03/22 Krish Chapman MD [address] [place] [phone] Consulting Physician Medical Oncology 07/18/22 documented as of this encounter
--- NOTE | 2024-12-03 13:54 | PC.NURSE ---
LR started at 150.
--- NOTE | 2024-12-03 14:17 | PC.NURSE ---
Aox 4, up with assistance times one, fsbg achs, on RA, 18g L AC LR@ 150ML/hr, diabetic diet, . text because patient would like something for reported diarrhea.
[2024-12-03] MEDS: 0.9 % SODIUM CHLORIDE 1000ML 1,000 ML 75 ML IV (14:30)
--- NOTE | 2024-12-03 14:33 | PC.NURSE ---
Patient stated he has had 10 bouts of diarrhea, all liquid stools and has abdominal cramping. Dr. Rasmussen notified and stool sample ordered before administration of imodium. Stool sample collected and sent to lab
[2024-12-03 15:55] VITALS: BP 111/68; PULSE 76; RESP 16; TEMP 36.6; O2SAT 96
--- NOTE | 2024-12-03 16:31 | PC.NURSE ---
. states it's okay to access patient's right chest port.
[2024-12-03 16:45] LABS: POC Glucose,Bedside 113 (70-110)
--- NOTE | 2024-12-03 16:57 | EXP.PN ---
Subjective *Date: 12/03/24 *Time: 16:57 Interval history: seen at bedside, no fevers overnight, denied CP, SOB, complains that he feels generalized weakness and still has diarrhea today Exam Data for Last 24 hours Vital signs and Labs for Last 24 Hours: Temp Pulse Resp BP Pulse Ox O2 Del Method O2 Flow Rate 97.9 F 76 16 111/68 96 Room Air 1 12/03/24 15:55 12/03/24 15:55 12/03/24 15:55 12/03/24 15:55 12/03/24 15:55 12/03/24 16:12 12/03/24 05:00 Laboratory Results - last 24 hr 12/02/24 20:51: WBC 15.7 H, RBC 5.41, Hgb 16.1, Hct 50.0, MCV 92.4, MCH 29.8, MCHC 32.2, RDW 13.8, Plt Count 166, MPV 10.2, Neut % (Auto) 76.4, Lymph % (Auto) 16.4, [place] % (Auto) 5.6, Eos % (Auto) 0.6, Baso % (Auto) 0.3, Neut # (Auto) 12.0 H, Lymph # (Auto) 2.6, [place] # (Auto) 0.9, Eos # (Auto) 0.1, Baso # (Auto) 0.1, Sodium 136, Potassium 4.7, Chloride 101, Carbon Dioxide 22, Anion Gap 17.7 H, BUN 39 H, Creatinine 3.40 H, Estimated Creat Clear 27, Estimated GFR 19 L*, Est GFR ( Amer) 23 L, Glucose 178 H, Calcium 10.3 H, Magnesium 2.4 H, Total Bilirubin 0.6, AST 38, ALT 27, Alkaline Phosphatase 99, Total Creatine Kinase 130, Troponin I 0.02, Total Protein 9.4 H D, Albumin 5.3 H, Globulin 4.1 H, Albumin/Globulin Ratio 1.3 12/02/24 21:47: Lactate 1.1 12/02/24 22:00: Urine Color Yellow, Urine Appearance Sl cloudy, Urine pH 5.5, Ur Specific [place] >= 1.030, Urine Protein 1+ A, Urine Glucose (UA) 2+, Urine Ketones Trace, Urine Blood Negative, Urine Nitrate Negative, Urine Bilirubin 1+ A, Urine Urobilinogen 0.2, Ur Leukocyte Esterase Negative, Urine WBC 10-20, Urine Bacteria 2+, Urine Mucus 1+ 12/02/24 22:51: Hemoglobin A1c 7.5 H 12/03/24 03:30: Troponin I < 0.01 12/03/24 05:56: POC Glucose 89 12/03/24 06:35: WBC 10.3 D, RBC 4.36 L, Hgb 13.3 L D, Hct 40.8 L, MCV 93.6, MCH 29.6, MCHC 31.6 L, RDW 13.7, Plt Count 125 L, MPV 10.1, Neut % (Auto) 58.9, Lymph % (Auto) 31.4, [place] % (Auto) 7.6, Eos % (Auto) 1.5, Baso % (Auto) 0.4, Neut # (Auto) 6.1, Lymph # (Auto) 3.2, [place] # (Auto) 0.8, Eos # (Auto) 0.2, Baso # (Auto) 0.0, Sodium 138, Potassium 3.8, Chloride 110 H, Carbon Dioxide 21 L, Anion Gap 10.8, BUN 33 H, Creatinine 1.60 H D, Estimated Creat Clear 60, Estimated GFR 45 L, Est GFR ( Amer) 54 L D, Glucose 148 H, Calcium 9.1, Magnesium 2.2, Total Bilirubin 0.3, AST 29, ALT 19 D, Alkaline Phosphatase 74, Total Protein 6.3 D, Albumin 3.3 L D, Globulin 3.0, Albumin/Globulin Ratio 1.1 12/03/24 10:28: POC Glucose 105 12/03/24 16:38: POC Glucose 113 H I & O for Last 24 hours: Intake & Output 11/30/24 12/01/24 12/02/24 12/03/24 23:59 23:59 23:59 23:59 Intake Total 0 / 2360 Output Total 450 / 450 Balance 1909 / 1909 Weight 82.724 kg 84.878 kg Constitutional Constitutional: no acute distress *Routine HEENT Exam Head: Present normocephalic Eye: Present EOMI and PERRL ENT: Present mucous membranes moist *Routine Neck Exam Neck: Present supple; Absent lymphadenopathy *Routine Respiratory Exam Respiratory: Present CTA bilaterally *Routine Cardiovascular Exam Cardiovascular: Present RRR *Routine Abdominal Exam Abdominal: Present soft and normoactive bowel sounds; Absent tenderness *Routine Extremities Exam Extremities: Absent cyanosis, clubbing or edema *Routine Skin Exam Skin: Present warm; Absent rash *Routine Neurological Exam Neurological: Present alert and oriented X3 Assessment and Plan *Assessment and plan (1) Acute hypotension: Status: Acute Category: Medical Code(s): I95.9 - Hypotension, unspecified (2) Acute kidney injury (nontraumatic): Status: Acute Category: Medical Code(s): N17.9 - Acute kidney failure, unspecified (3) Essential hypertension: Status: Chronic Category: Medical Code(s): I10 - Essential (primary) hypertension (4) Diabetes: Status: Chronic Category: Medical Code(s): E11.9 - Type 2 diabetes mellitus without complications (5) Lung cancer: Status: Chronic Category: Medical Code(s): C34.90 - Malignant neoplasm of unspecified part of unspecified bronchus or lung (6) Tobacco use disorder: Status: Chronic Category: Medical Code(s): F17.200 - Nicotine dependence, unspecified, uncomplicated Plan 59-year-old male with history of diabetes, lung cancer, hypertension, tobacco use disorder. Presented with weakness and dizziness. Had nausea and vomiting after attempting to hydrate at home orally. BHARGAVI Dehydration Hypotension - Baseline creatinine normal at 1.0. Creatinine 3.4 on presentation Cr today 1.6 patient still complais of Diarrhea, send stool culture and C diff continue IV fluids monitor BMP Neuropathy: Continue gabapentin 100 mg nightly Diabetes: order sliding scale Hypertension: monitor hold nephrotoxic meds Tobacco use disorder Smokes 2 packs a day. Initiate 42 mg (2 patches) daily nicotine supplementation. History of lung cancer, complicates his care. Not undergoing chemotherapy at this time. Follows with oncology in [place] COPD: Continue albuterol 2 puffs every 6 hours as needed. Stable on room air. No acute exacerbation Hyperlipidemia: Holding fenofibrate and statin in the BHARGAVI and dehydration. Full code Diabetic diet likely dc tomorrow if diarrhea improves and Cr continues to improve
[2024-12-03 20:00] VITALS: BP 120/68; PULSE 89; RESP 16; TEMP 36.7; O2SAT 97
[2024-12-03] MEDS: humaLOG 100 UNITS/ML 10ML VIAL (SSI) SUBCUT (21:05)
[2024-12-03] MEDS: INSULIN GLARGINE 100 UNITS/ML 3ML FLEXPEN 40 UNIT SUBCUT (21:06)
[2024-12-03 21:43] LABS: POC Glucose,Bedside 161 (70-110)
[2024-12-04] VITALS: BP 102/59; PULSE 83; RESP 16; TEMP 36.6; O2SAT 92
[2024-12-04 04:00] VITALS: BP 111/71; PULSE 78; RESP 16; TEMP 36.4; O2SAT 94; BMI 31.1
[2024-12-04] MEDS: 0.9 % SODIUM CHLORIDE 1000ML 1,000 ML 75 ML IV (04:36)
--- NOTE | 2024-12-04 04:46 | PC.NURSE ---
Pt AOx4, pleasant. Receiving IV fluids. Received imodium prn for diarrhea. Denying pain. Pt is currently resting in bed with eyes closed. Respirations even and unlabored. Bed is low, locked, and call light is in reach.
[2024-12-04 05:43] LABS: POC Glucose,Bedside 136 (70-110)
[2024-12-04 07:26] LABS: Hematocrit 38.7 % (42.0-52.0); Hemoglobin 12.6 g/dL (14.1-18.0); Immature Granulocytes % 0.3 %; Mean Corpuscular HGB Conc 32.6 g/dL (31.8-35.4); Mean Corpuscular Hemoglobin 30.4 pg (27.0-31.2); Mean Corpuscular Volume 93.3 fl (80-94); Nucleated Red Blood Cells % 0 %; Platelet Count 110 K/mm3 (142-424); Red Blood Count 4.15 M/mm3 (4.60-6.20); Red Cell Distribution Width-SD 45.9 fL; White Blood Count 7.1 K/mm3 (4.8-10.8)
[2024-12-04 07:49] LABS: Alanine Aminotransferase 17 U/L (12-78); Albumin Level 3.1 g/dl (3.5-5.0); Albumin/Globulin Ratio 1.0 (1.1-1.8); Alkaline Phosphatase 76 U/L (38-126); Anion Gap 9.0 mEq/L (5-15); Aspartate Amino Transferase 28 U/L (17-59); Bilirubin,Total 0.2 mg/dl (0.2-1.3); Blood Urea Nitrogen 20 mg/dl (9-20); Calcium 9.3 mg/dl (8.4-10.2); Carbon Dioxide 25 mmol/L (22.0-30.0); Chloride 107 mmol/L (98-107); Creatinine Clearance Estimated 108 mL/min (50-200); Creatinine,Serum 0.90 mg/dl (0.66-1.25); Estimated Glomerular Filt Rate 87 ml/min (>60); GFR (African American) 105 ML/MIN (>60); Globulin 3.0 g/dL (1.3-3.2); Glucose 160 mg/dl (74-100); Potassium 4.0 mmoL/L (3.5-5.1); Sodium 137 mmol/L (136-145); Total Protein,Serum 6.1 g/dl (6.3-8.2)
[2024-12-04 08:00] VITALS: BP 100/61; PULSE 82; RESP 16; TEMP 36.7; O2SAT 96
--- NOTE | 2024-12-04 08:20 | EXP.DC.SUM ---
General Admission date:: 12/02/24 Discharge date: 12/04/24 HPI HPI HPI: 59-year-old male with history of diabetes, tobacco use disorder, lung cancer, hypertension, hyperlipidemia. Presented to the ER with complaint of upset stomach, dizziness, weakness. Symptoms have worsened over the past few days but states that they actually began last week. He has been working a lot outside. 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 Has been working outside with poor hydration and no air conditioning. On arrival to the ER, patient was frankly hypotensive. Initial labs showed BHARGAVI with creatinine of 3.4. BUN 39. Patient has had very poor urine output. Had a loose stool today and inability to tolerate p.o. intake due to nausea with drinking. is concerned because his blood pressure at home with systolics in the 70s. Received IV fluids in the ER. Was able to make a small amount of urine. As he is making urine, medicine was consulted for admission and further management of significant BHARGAVI and hypovolemia/dehydration. On evaluation after arriving to the floor, patient is alert and oriented x 4. Blood pressure improved to systolic 120s. Stable on room air. Family at bedside helps supplement history. Denies chest pain. Does complain of headache. Shortness of breath at baseline. Denies emily syncope or loss of consciousness. Hospital Course Hospital Course Hospital Course: 59-year-old male with history of diabetes, lung cancer, hypertension, tobacco use disorder. Presented with weakness and dizziness. Had nausea and vomiting after attempting to hydrate at home orally. On arrival to the ER found to have BHARGAVI and emily hypotension likely due to hypovolemia. Discussed case with ER physician, request admission for further management of significant kidney injury and dehydration. I decided to admit for further care. Continues IV fluids at admission. Able to transition to p.o. hydration with normalization in kidney function. Problems addressed as follows: BHARGAVI Dehydration Hypotension - Baseline creatinine normal at 1.0. Creatinine 3.4 on presentation with BUN 39, double his baseline. Potassium 4.7, magnesium 2.4. CK normal. Administered 2 L IV fluids in the ER. Began to have some urine output. Continued LR for an additional liter. Tolerating p.o. by morning. Trended creatinine, showed gradual improvement to normal with BUN 20, creatinine 0.9 on morning of discharge. Initially had some diarrhea that resolved after improvement in hydration. Held patient's blood pressure medication due to hypotension. Reconsider resuming at follow-up with PCP. Given normalization of kidney function, tolerance of p.o. intake, resolution of nausea and weakness, stable to discharge home. Neuropathy: Continue gabapentin 100 mg nightly Diabetes: A1c 7.5. Held regimen during admission due to kidney dysfunction. Resume home regimen at discharge. Hypertension: Frankly hypotensive at admission. Improved by discharge. Continue to hold metoprolol pending follow-up with PCP. Tobacco use disorder: No interest in quitting at this time. Smokes 2 packs a day. Initiated 42 mg (2 patches) daily nicotine supplementation. History of lung cancer, complicates his care. Not undergoing chemotherapy at this time. Follows with oncology in [place] COPD: Continue albuterol 2 puffs every 6 hours as needed. Stable on room air. No acute exacerbation Hyperlipidemia: Holding fenofibrate and statin in the BHARGAVI and dehydration. Exam Data for Last 24 hours Vital signs and Labs for Last 24 Hours: Temp Pulse Resp BP Pulse Ox O2 Del Method O2 Flow Rate 97.5 F L 78 16 111/71 94 L Room Air 1 12/04/24 04:00 12/04/24 04:00 12/04/24 04:00 12/04/24 04:00 12/04/24 04:00 12/04/24 07:43 12/03/24 05:00 Laboratory Results - last 24 hr 12/03/24 10:28: POC Glucose 105 12/03/24 16:38: POC Glucose 113 H 12/03/24 20:27: POC Glucose 161 H 12/04/24 05:36: POC Glucose 136 H 12/04/24 07:05: WBC 7.1 D, RBC 4.15 L, Hgb 12.6 L, Hct 38.7 L, MCV 93.3, MCH 30.4, MCHC 32.6, RDW 13.4, Plt Count 110 L, MPV 10.2, Neut % (Auto) 52.1, Lymph % (Auto) 36.8, [place] % (Auto) 8.6, Eos % (Auto) 1.8, Baso % (Auto) 0.4, Neut # (Auto) 3.7, Lymph # (Auto) 2.6, [place] # (Auto) 0.6, Eos # (Auto) 0.1, Baso # (Auto) 0.0, Sodium 137, Potassium 4.0, Chloride 107, Carbon Dioxide 25, Anion Gap 9.0, BUN 20 D, Creatinine 0.90 D, Estimated Creat Clear 108, Estimated GFR 87, Est GFR ( Amer) 105 D, Glucose 160 H, Calcium 9.3, Total Bilirubin 0.2, AST 28, ALT 17, Alkaline Phosphatase 76, Total Protein 6.1 L, Albumin 3.1 L, Globulin 3.0, Albumin/Globulin Ratio 1.0 L I & O for Last 24 hours: Intake & Output 12/01/24 12/02/24 12/03/24 12/04/24 23:59 23:59 23:59 23:59 Intake Total 2840 / 3200 360 / 360 Output Total 450 / 450 0 / 0 Balance 2390 / 2750 360 / 360 Weight 82.724 kg 84.878 kg 84.964 kg Microbiology Reports for the Last 24 Hours: Microbiology 12/02/24 22:00 Urine,Clean Catch Urine Culture - Final No growth. Constitutional Constitutional: no acute distress, obese and cooperative *Routine HEENT Exam Head: Present normocephalic Eye: Present EOMI and PERRL ENT: Present mucous membranes moist *Routine Neck Exam Neck: Present supple; Absent lymphadenopathy *Routine Respiratory Exam Respiratory: Present CTA bilaterally; Absent rhonchi, wheezes or crackles *Routine Cardiovascular Exam Cardiovascular: Present RRR *Routine Abdominal Exam Abdominal: Present soft and normoactive bowel sounds; Absent tenderness *Routine Rectal Exam Patient deferred: visual exam *Routine Exam Patient deferred: penile exam *Routine Extremities Exam Extremities: Absent cyanosis, clubbing or edema *Routine Skin Exam Skin: Present intact and warm; Absent rash *Routine Neurological Exam Neurological: Present alert, oriented X3 and moving all extremities; Absent altered mental status Results Data Completed and Pending Labs on day of discharge: Labs from last 24 hours 12/04/24 12/04/24 12/03/24 07:05 05:36 20:27 WBC 7.1 D RBC 4.15 L Hgb 12.6 L Hct 38.7 L MCV 93.3 MCH 30.4 MCHC 32.6 RDW 13.4 Plt Count 110 L MPV 10.2 Neut % (Auto) 52.1 Lymph % (Auto) 36.8 [place] % (Auto) 8.6 Eos % (Auto) 1.8 Baso % (Auto) 0.4 Neut # (Auto) 3.7 Lymph # (Auto) 2.6 [place] # (Auto) 0.6 Eos # (Auto) 0.1 Baso # (Auto) 0.0 Sodium 137 Potassium 4.0 Chloride 107 Carbon Dioxide 25 Anion Gap 9.0 BUN 20 D Creatinine 0.90 D Estimated Creat Clear 108 Estimated GFR 87 Est GFR ( Amer) 105 D Glucose 160 H POC Glucose 136 H 161 H Calcium 9.3 Total Bilirubin 0.2 AST 28 ALT 17 Alkaline Phosphatase 76 Total Protein 6.1 L Albumin 3.1 L Globulin 3.0 Albumin/Globulin Ratio 1.0 L 12/03/24 12/03/24 16:38 10:28 WBC RBC Hgb Hct MCV MCH MCHC RDW Plt Count MPV Neut % (Auto) Lymph % (Auto) [place] % (Auto) Eos % (Auto) Baso % (Auto) Neut # (Auto) Lymph # (Auto) [place] # (Auto) Eos # (Auto) Baso # (Auto) Sodium Potassium Chloride Carbon Dioxide Anion Gap BUN Creatinine Estimated Creat Clear Estimated GFR Est GFR ( Amer) Glucose POC Glucose 113 H 105 Calcium Total Bilirubin AST ALT Alkaline Phosphatase Total Protein Albumin Globulin Albumin/Globulin Ratio DS: Diagnosis Discharge Diagnosis (1) Acute hypotension: Status: Acute Code(s): I95.9 - Hypotension, unspecified (2) Acute kidney injury (nontraumatic): Status: Acute Code(s): N17.9 - Acute kidney failure, unspecified (3) Essential hypertension: Status: Chronic Code(s): I10 - Essential (primary) hypertension (4) Diabetes: Status: Chronic Code(s): E11.9 - Type 2 diabetes mellitus without complications (5) Lung cancer: Status: Chronic Code(s): C34.90 - Malignant neoplasm of unspecified part of unspecified bronchus or lung (6) Tobacco use disorder: Status: Chronic Code(s): F17.200 - Nicotine dependence, unspecified, uncomplicated Meds Home Medications and Allergies Home Medications ?Medication ?Instructions ?Recorded ?Confirmed ?Type loratadine 10 mg tablet 10 mg PO DAILY 10/29/22 12/02/24 History blood sugar diagnostic (Marketing MunchTouch #10 ea 03/08/24 12/02/24 History Ultra Test strips) lancets 33 gauge (OneTouch Delica #100 ea 03/08/24 12/02/24 History Plus Lancet) metformin 500 mg tablet,extended 1,000 mg PO BID 03/08/24 12/03/24 History release 24 hr albuterol sulfate 90 mcg/actuation 2 inh inhalation Q6HP PRN 12/02/24 12/02/24 History aerosol inhaler (Ventolin HFA) Shortness Of Breath cholecalciferol (vitamin D3) 25 25 mcg PO DAILY 12/02/24 12/02/24 History mcg (1,000 unit) chewable tablet (Vitamin D3) insulin glargine 100 unit/mL (3 60 unit SQ HS 12/02/24 12/02/24 History mL) subcutaneous pen (Lantus Solostar U-100 Insulin) metoprolol succinate 100 mg 100 mg PO DAILY 12/03/24 12/03/24 History tablet,extended release 24 hr Held on 12/04/24. Instructions: pending follow-up with PCP omeprazole 20 mg capsule,delayed 20 mg PO DAILY 12/03/24 12/03/24 History release New Prescriptions to Start Prescriptions: Allergies Allergy/AdvReac Type Severity Reaction Status Date / Time nut - unspecified Allergy Severe Anaphylaxis Verified 12/02/24 23:06 penicillin G Allergy Severe Swelling Verified 03/08/24 10:06 of Lip/Tongue/Throat Discharge Plan Disposition Patient Disposition: Home, Self-Care Condition: Fair Discharge Order Discharge Orders: Discharge Order (Routine); Ordered 12/04/24 Ordered By: Yaya Cuevas Follow up Plan Follow up with: Pippa Pollack APRN [Primary Care Provider, Medical] - 1 week Referral Note: Call on Thursday to schedule an appointment with Pippa Pollack. Prescriptions/Medication Reconciliation: Continued (DME) lancets [OneTouch Delica Plus Lancet] 33 gauge misc See Rx Instructions .ROUTE .MEDSUPPLY Qty: 100 Rx Instructions: As directed (DME) OneTouch Ultra Test Strip See Rx Instructions .ROUTE .MEDSUPPLY Qty: 10 Rx Instructions: As directed metformin 500 mg tablet extended release 24 hr 1,000 mg PO BID loratadine 10 mg tablet 10 mg PO DAILY albuterol sulfate [Ventolin HFA] 90 mcg/actuation HFA aerosol inhaler 2 inh INHALATION Q6HP PRN (Reason: Shortness Of Breath) insulin glargine [Lantus Solostar U-100 Insulin] 100 unit/mL (3 mL) Insulin Pen 60 unit SQ HS cholecalciferol (vitamin D3) [Vitamin D3] 25 mcg (1,000 unit) Tablet,Chewable 25 mcg PO DAILY omeprazole 20 mg capsule,delayed release(DR/EC) 20 mg PO DAILY Held metoprolol succinate 100 mg tablet extended release 24 hr 100 mg PO DAILY Hold Instructions: pending follow-up with PCP Problem Reconciliation Problems Reviewed?: Yes Patient Discharge Instructions ACTIVITY: Continue current activity DIET: continue same diet Patient Instructions: DI for Dehydration -- Adult, DI for Acute Kidney Injury Print Language: Syriac Providers Primary Care Provider: Pippa Pollack Admit Provider: Yaya Cuevas Attending Provider: Yaya Cuevas
[2024-12-04] MEDS: CEFTRIAXONE 1 GM 1 GM in 0.9 % SODIUM CHLORIDE 50 ML IV (09:37)
[2024-12-04 09:55] LABS: POC Glucose,Bedside 144 (70-110)
--- NOTE | 2024-12-05 11:12 | SW/DCPLANNER ---
Spoke with patient on the phone. Patient stated that his diarrhea is back with vomiting. Patient stated that he is aware that he needs to call his PCP and schedule and appointment. Patient stated that he has no concerns or questions at this time. Olga Jo
[2024-12-05 13:12] LABS: C difficile Toxins AB, EIA Negative (Negative)
== END 2024-12-04 12:05 | disposition home or self-care (01) | DRG 683 ==
LOC: ER 21:44 → 2ND 12-03 06:09
PROVIDERS: Internal Medicine; Physician Assistant; Student in an Organized Health Care Education/Training Program; Admitting Provider Internal Medicine Adolescent Medicine; Emergency Provider Student in an Organized Health Care Education/Training Program; PCP Nurse Practitioner Family; Visit Provider Internal Medicine Adolescent Medicine
DX: N17.9 Acute kidney failure, unspecified (principal); E87.21 Acute metabolic acidosis; E86.0 Dehydration; I95.9 Hypotension, unspecified; E11.40 Type 2 diabetes mellitus with diabetic neuropathy, unspecified; I10 Essential (primary) hypertension; J44.9 Chronic obstructive pulmonary disease, unspecified; E78.5 Hyperlipidemia, unspecified; F17.210 Nicotine dependence, cigarettes, uncomplicated; R19.7 Diarrhea, unspecified; Z79.4 Long term (current) use of insulin; Z79.84 Long term (current) use of oral hypoglycemic drugs; Z79.85 Long-term (current) use of injectable non-insulin antidiabetic drugs; Z88.0 Allergy status to penicillin; Z85.118 Personal history of other malignant neoplasm of bronchus and lung
CPT/HCPCS: 36415; 80053; 81001; 82550; 82962; 83036; 83605; 83735; 84484; 85025; 87045; 87086; 87324; J0696; J1642; J1644; J2405; J7030; J7120

== ENCOUNTER 2025-04-20 16:30 | Outpatient (CLI) | payer MEDICARE, OTHER, SELFPAY ==
[2025-04-20 17:05] LABS: Albumin Level 4.4 g/dl (3.5-5.0); Chloride 103 mmol/L (98-107); Potassium 4.9 mmoL/L (3.5-5.1); Sodium 142 mmol/L (136-145)
[2025-04-20 17:08] LABS: Alanine Aminotransferase 25 U/L (12-78); Albumin/Globulin Ratio 1.3 (1.1-1.8); Alkaline Phosphatase 79 U/L (38-126); Anion Gap 15.9 mEq/L (5-15); Aspartate Amino Transferase 33 U/L (17-59); Bilirubin,Total 0.4 mg/dl (0.2-1.3); Blood Urea Nitrogen 12 mg/dl (9-20); Carbon Dioxide 28 mmol/L (22.0-30.0); Creatinine,Serum 0.90 mg/dl (0.66-1.25); Estimated Glomerular Filt Rate 87 ml/min (>60); GFR (African American) 105 ML/MIN (>60); Globulin 3.3 g/dL (1.3-3.2); Total Protein,Serum 7.7 g/dl (6.3-8.2)
[2025-04-20 17:09] LABS: Calcium 9.4 mg/dl (8.4-10.2); Glucose 75 mg/dl (74-100)
[2025-04-20 17:23] LABS: Free T4 (Free Thyroxine) 0.80 ng/dl (0.78-2.19)
[2025-04-20 17:40] LABS: Thyroid Stimulating Hormone 9.98 uIU/mL (0.465-4.68)
== END 2025-04-20 23:59 | disposition home or self-care (01) ==
LOC: LAB 16:31
PROVIDERS: PCP Nurse Practitioner Family; Visit Provider Internal Medicine Medical Oncology
DX: C34.90 Malignant neoplasm of unspecified part of unspecified bronchus or lung (principal); R53.82 Chronic fatigue, unspecified
CPT/HCPCS: 36415; 80053; 84439; 84443